=== PATIENT | female | born 1945 | race Caucasian/White ===

== ENCOUNTER 2017-05-26 10:33 | Emergency (ER) | payer MEDICARE ==
[2017-05-26] MEDS ORDERED: NS 0.9% 1000 ML* 1,000 ML IV ONE (10:51)
[2017-05-26 11:19] LABS: ABS Basophils 0.1 10^3/ul (0-0.2); ABS Eosinophils 0.1 10^3/ul (0-0.6); ABS Lymphocytes 1.5 10^3/ul (1.0-4.8); ABS Monocytes 0.7 10^3/ul (0-0.8); ABS Nucleated RBC 0 10^3/ul; Eosinophil % 0.6 % (0-6); Hematocrit 40 % (35-47); Hemoglobin 13.3 g/dl (12.0-16.0); Lymphocyte % 13.2 % (25-47); Mean Corpuscular HGB Conc 33 g/dl (31-36); Mean Corpuscular Hemoglobin 29 pg (27-31); Mean Corpuscular Volume 88 fL (80-97); Mean Platelet Volume 10 um3 (7.4-10.4); Nucleated Red Blood Cells % 0; Platelet Count 280 10^3/ul (150-450); Red Blood Count 4.61 10^6/ul (4.0-5.4); Red Cell Distribution Width 14 % (10.5-15); White Blood Count 11.3 10^3/ul (3.5-10.8)
--- NOTE | 2017-05-26 11:34 | RAD ---
Indication: Weakness. 2 views the chest demonstrate no mediastinal shift. Heart is of normal size and configuration. Lung barr are clear. When compared to previous exam of December 03, 2015 no significant change is noted. IMPRESSION: No active cardiopulmonary disease is noted.
[2017-05-26 11:39] LABS: EGFR Non-African American 81.2 (>60)
[2017-05-26 14:22] LABS: Urine Appearance Clear; Urine Blood Negative (Negative); Urine Color Straw; Urine Ketones Negative (Negative); Urine Protein Negative (Negative); Urine Specific Gravity 1.007 (1.010-1.030); Urine Urobilinogen Negative (Negative)
[2017-05-26 15:23] VITALS: BP 172/82
--- NOTE | 2017-05-26 17:37 | ED ---
Radha Benavides Nilda, scribed for Juan Shields MD on 05/26/17 at 1116 . HPI Diabetic - HPI Summary HPI Summary: This patient is a 72 year old F BIBA with a chief complaint of constant nausea and headache since this morning. The patient rates the pain 0/10 in severity. Symptoms aggravated by medication non-compliance and alleviated by nothing. Patient reports insomnia (weeks), but denies CP, SOB, and fever. PMHx includes IDDM (noncompliant with treatment regimen). Patient states she took insulin this morning but that she has not taken insulin for months. 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 Denies: Hx Anemia Cardiovascular History: Reports: Hx 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 14, Hx Hypertension - DOESN'T TAKE MEDS Denies: Hx Pacemaker/ICD, Other Cardiovascular Problems/Disorders - Open heart surgery in 1960s, FOR CONGENITAL HEART DISEASE GI History: Denies: Hx Jaundice History: Denies: Hx Renal Disease Sensory History: Reports: Hx Contacts or Glasses Denies: Hx Hearing Aid Opthamlomology History: Reports: Hx Contacts or Glasses Neurological History: Reports: Hx Headaches, Hx Migraine Denies: Other Neuro Impairments/Disorders Psychiatric History: Reports: Hx Anxiety, Hx Depression, Hx Panic Disorder Denies: Hx Attention Deficit Hyperactivity Disorder, Hx Eating Disorder, Hx Post Traumatic Stress Disorder, Hx Inpatient Treatment, Hx Community Mental Health Tx, Hx Schizophrenia, Hx Bipolar Disorder, Hx Suicide Attempt, Hx of Violent Episodes Against Others, Hx Substance Abuse, Other Psychiatric Issues/ Disorders - Cancer History Cancer Type, Location and Year: L breast cancer Hx Radiation Therapy: Yes - Surgical History Surgery Procedure, Year, and Place: OPEN HEART AT AGE 14 FOR CONGENTIAL HEART ( ONLY STERNAL CLOSURES ON CHEST XRAY - OKAY TO MRI SCAN PER DR. QUINTERO 09/24/2015 ) ;. BREAST CANCER SURGERY ; - Immunization History Date of Tetanus Vaccine: utd Date of Influenza Vaccine: never Infectious Disease History: No Infectious Disease History: Denies: Traveled Outside the [place] in Last 30 Days - Family History Known Family History: Positive: Other - Breast cancer - Social History Alcohol Use: None Substance Use Type: Reports: None Hx Tobacco Use: No Smoking Status (MU): Never Smoked Tobacco Have You Smoked in the Last Year: No Review of Systems Negative: Fever Negative: Chest Pain Negative: Shortness Of Breath Positive: Nausea Neurological: Other - insomnia Positive: Headache All Other Systems Reviewed And Are Negative: Yes Physical Exam - Summary Physical Exam Summary: VITAL SIGNS: Reviewed. GENERAL: Patient is a well-developed and nourished female with poor hygiene who is lying comfortable in the stretcher. Patient is not in any acute respiratory distress. No acute distress. HEAD AND FACE: No signs of trauma. No ecchymosis, hematomas or skull depressions. No sinus tenderness. EYES: PERRLA, EOMI x 2, No injected conjunctiva, no nystagmus. EARS: Hearing grossly intact. Ear canals and tympanic membranes are within normal limits. MOUTH: Oropharynx within normal limits. NECK: Supple, trachea is midline, no adenopathy, no JVD, no carotid bruit, no c- spine tenderness, neck with full ROM. CHEST: Symmetric, no tenderness at palpation LUNGS: Clear to auscultation bilaterally. No wheezing or crackles. CVS: Regular rate and rhythm, S1 and S2 present, no murmurs or gallops appreciated. ABDOMEN: Soft, non-tender. No signs of distention. No rebound no guarding, and no masses palpated. Bowel sounds are normal. EXTREMITIES: FROM in all major joints, no edema, no cyanosis or clubbing. NEURO: Alert and oriented x 3. No acute neurological deficits. Speech is normal and follows commands. SKIN: Dry and warm Triage Information Reviewed: Yes Vital Signs On Initial Exam: Initial Vitals Temp Pulse Resp BP Pulse Ox 97.7 F 86 20 188/92 98 05/26/17 10:42 05/26/17 10:42 05/26/17 10:42 05/26/17 10:42 05/26/17 10:42 Vital Signs Reviewed: Yes Diagnostics - Vital Signs Vital Signs Temp Pulse Resp BP Pulse Ox 05/26/17 10:42 97.7 F 86 20 188/92 98 - Laboratory Lab Results: Lab Results 05/26/17 05/26/17 05/26/17 Range/Units 11:09 11:09 11:09 WBC 11.3 H (3.5-10.8) 10^3/ul RBC 4.61 (4.0-5.4) 10^6/ul Hgb 13.3 (12.0-16.0) g/dl Hct 40 (35-47) % MCV 88 (80-97) fL MCH 29 (27-31) pg MCHC 33 (31-36) g/dl RDW 14 (10.5-15) % Plt Count 280 (150-450) 10^3/ul MPV 10 (7.4-10.4) um3 Neut % (Auto) 79.4 (38-83) % Lymph % (Auto) 13.2 L (25-47) % [place] % (Auto) 6.1 (0-7) % Eos % (Auto) 0.6 (0-6) % Baso % (Auto) 0.7 (0-2) % Absolute Neuts (auto) 9.0 H (1.5-7.7) 10^3/ul Absolute Lymphs (auto) 1.5 (1.0-4.8) 10^3/ul Absolute Monos (auto) 0.7 (0-0.8) 10^3/ul Absolute Eos (auto) 0.1 (0-0.6) 10^3/ul Absolute Basos (auto) 0.1 (0-0.2) 10^3/ul Absolute Nucleated RBC 0 10^3/ul Nucleated RBC % 0 Sodium 138 (133-145) mmol/L Potassium 3.6 (3.5-5.0) mmol/L Chloride 101 (101-111) mmol/L Carbon Dioxide 29 (22-32) mmol/L Anion Gap 8 (2-11) mmol/L BUN 11 (6-24) mg/dL Creatinine 0.71 (0.51-0.95) mg/dL Est GFR ( Amer) 104.4 (>60) Est GFR (Non-Af Amer) 81.2 (>60) BUN/Creatinine Ratio 15.5 (8-20) Glucose 296 H (70-100) mg/dL Lactic Acid (0.5-2.0) mmol/L Calcium 9.4 (8.6-10.3) mg/dL Magnesium 1.7 L (1.9-2.7) mg/dL Total Bilirubin 0.30 (0.2-1.0) mg/dL AST 9 L (13-39) U/L ALT 5 L (7-52) U/L Alkaline Phosphatase 101 (34-104) U/L Total Creatine Kinase 29 (10-223) U/L Troponin I 0.01 (<0.04) ng/mL C-Reactive Protein 8.74 H (< 5.00) mg/L B-Natriuretic Peptide 74 ( - 100) pg/mL Total Protein 7.0 (6.4-8.9) g/dL Albumin 3.8 (3.2-5.2) g/dL Globulin 3.2 (2-4) g/dL Albumin/Globulin Ratio 1.2 (1-3) TSH 1.77 (0.34-5.60) mcIU/mL Serum Alcohol < 10 (<10) mg/dL /16/ Range/Units 11:09 WBC (3.5-10.8) 10^3/ul RBC (4.0-5.4) 10^6/ul Hgb (12.0-16.0) g/dl Hct (35-47) % MCV (80-97) fL MCH (27-31) pg MCHC (31-36) g/dl RDW (10.5-15) % Plt Count (150-450) 10^3/ul MPV (7.4-10.4) um3 Neut % (Auto) (38-83) % Lymph % (Auto) (25-47) % [place] % (Auto) (0-7) % Eos % (Auto) (0-6) % Baso % (Auto) (0-2) % Absolute Neuts (auto) (1.5-7.7) 10^3/ul Absolute Lymphs (auto) (1.0-4.8) 10^3/ul Absolute Monos (auto) (0-0.8) 10^3/ul Absolute Eos (auto) (0-0.6) 10^3/ul Absolute Basos (auto) (0-0.2) 10^3/ul Absolute Nucleated RBC 10^3/ul Nucleated RBC % Sodium (133-145) mmol/L Potassium (3.5-5.0) mmol/L Chloride (101-111) mmol/L Carbon Dioxide (22-32) mmol/L Anion Gap (2-11) mmol/L BUN (6-24) mg/dL Creatinine (0.51-0.95) mg/dL Est GFR ( Amer) (>60) Est GFR (Non-Af Amer) (>60) BUN/Creatinine Ratio (8-20) Glucose (70-100) mg/dL Lactic Acid 1.8 (0.5-2.0) mmol/L Calcium (8.6-10.3) mg/dL Magnesium (1.9-2.7) mg/dL Total Bilirubin (0.2-1.0) mg/dL AST (13-39) U/L ALT (7-52) U/L Alkaline Phosphatase (34-104) U/L Total Creatine Kinase (10-223) U/L Troponin I (<0.04) ng/mL C-Reactive Protein (< 5.00) mg/L B-Natriuretic Peptide ( - 100) pg/mL Total Protein (6.4-8.9) g/dL Albumin (3.2-5.2) g/dL Globulin (2-4) g/dL Albumin/Globulin Ratio (1-3) TSH (0.34-5.60) mcIU/mL Serum Alcohol (<10) mg/dL Result Diagrams: 05/26/17 11:09 05/26/17 11:09 Lab Statement: Any lab studies that have been ordered have been reviewed, and results considered in the medical decision making process. - Radiology CXR Radiology Interpretation Completed By: Radiologist - CXR reveals no active cardiopulmonary disease is noted. Dr. Shields has reviewed this radiology report. - EKG 1100 Cardiac Rate: Other Rate EKG Rhythm: Sinus Rhythm - 89 bpm EKG Interpretation: no ST elevation EKG Comparison: No Significant Change - compared to 12/03/15 Re-Evaluation - Re-Evaluation First Eval Re-Evaluation Time: 12:55 Comment: Patient feels okay. Second Eval Re-Evaluation Time: 14:55 Comment: Reviewed labs with patient and plan to D/C. Patient is agreeable to D/ C. Diabetic Course/Dx - Course Assessment/Plan: This patient is a 72 year old F BIBA with a chief complaint of constant nausea and headache since this morning. The patient rates the pain 0/ 10 in severity. Symptoms aggravated by medication non-compliance and alleviated by nothing. Patient reports insomnia (weeks), but denies CP, SOB, and fever. PMHx includes IDDM (noncompliant with treatment regimen). Patient states she took insulin this morning but that she has not taken insulin for months. In the ED course an IV access was obtained. Patient was placed in a monitoring specialist. Patient was started with IV fluids. Labs without any significant abnormality except for WBC 11.3, glucose 296 consistent with her not adherence to medications. Troponin #1: 0.00. EKG shows a NSR w/o ST elevations. CXR impression: No acute pathology. After hydration she is feeling better and she will be discharged home with F/U of PMD. I discussed all the findings and test results with the patient. Patient was instructed to return to the emergency room immediately if any of the symptoms return or worsens. Plan of care was discussed with the patient and understands and agrees. All questions were answered at patient satisfaction. There were no further complaints or concerns. Lung exam before discharge: CTA B/L. Good air exchange. No wheezing or crackles heard. CVS: S1 and S2 present. No murmurs appreciated. Patient is alert and oriented x 3. Patient is hemodynamically stable. Patient will be discharged home with follow up PCP in the next 2-3 days - Diagnoses Differential Dx: Diabetic Ketoacidosis, Hyperglycemia, Hyperosmolar State, Hypoglycemia Provider Diagnoses: Weakness, Hyperglycemia, Uncontrolled diabetes mellitus Discharge - Discharge Plan Condition: Stable Disposition: HOME Prescriptions: Insulin ASPART (NF) [Novolog (NF)] 0 - 8 units SUBCUT TID AC #1 vial Insulin GLARGINE(*) [Lantus(*)] 45 units SUBCUT BEDTIME #1 vial Patient Education Materials: Weakness (ED), Diabetic Hyperglycemia (ED), Diabetes in the Older Adult (ED) Referrals: Ruby Trinh MD [Primary Care Provider] - 3 Days Additional Instructions: RETURN TO THE EMERGENCY DEPARTMENT FOR CHANGING OR WORSENING SYMPTOMS. The documentation as recorded by the Radha gu Nilda accurately reflects the service I personally performed and the decisions made by , Juan Shields MD.
== END 2017-05-26 15:21 | disposition home or self-care (01) ==
LOC: ED 10:33
DX: R53.1 Weakness (principal); E11.65 Type 2 diabetes mellitus with hyperglycemia; Z91.19 Patient's noncompliance with other medical treatment and regimen; Z85.3 Personal history of malignant neoplasm of breast
CPT/HCPCS: 36415; 71046; 80053; 80320; 81003; 82550; 83605; 83735; 83880; 84443; 84484; 85025; 86140; 93005; 96360; 99283; G0480

== ENCOUNTER 2018-12-25 12:04 | Inpatient (IN) | payer MEDICARE ==
[2018-12-25] MEDS ORDERED: Nitroglycerin TAB 0.4 MG* 0.4 MG TAB ONE (12:23)
[2018-12-25] MEDS ORDERED: Aspirin 81 mg CHEW TAB* 81 MG TAB.CHEW ONE (12:23)
[2018-12-25] MEDS ORDERED: Aspirin 81 mg CHEW TAB* 81 MG TAB.CHEW PO ONE (12:24)
[2018-12-25] MEDS ORDERED: Nitroglycerin TAB 0.4 MG* 0.4 MG TAB SL ONE (12:24)
--- NOTE | 2018-12-25 12:28 | ED ---
HPI Diabetic - HPI Summary HPI Summary: Pt is a 73 y/o F presenting to the ED brought in by EMS for a diabetic issue. EMS was called by the pts aide who found her on the floor with confusion and double vision. EMS states her blood sugar was out of range. The pt states she slid down to the floor yesterday and was unable to get up for 12 hours. She lives alone. She complains of chest pressure rated at 4/10 in severity. - History Of Current Complaint Chief Complaint: EDDiabeticProb Time Seen by Provider: 12/25/18 12:16 Hx Obtained From: Patient, EMS Onset/Duration: Gradual Onset, Lasting Hours, Still Present Timing: Hours Severity Initially: Moderate Severity Currently: Moderate Character: Confused Aggravating: Other - fall Alleviating: Nothing Associated Signs & Symptoms: Negative Related History: DM II - Allergies/Home Medications Allergies/Adverse Reactions: Allergies Allergy/AdvReac Type Severity Reaction Status Date / Time ciprofloxacin Allergy Rash And Verified 12/25/18 14:34 Itching Home Medications: Home Medications Amlodipine Besylate [Norvasc] 10 mg PO DAILY 12/25/18 [History Confirmed ] Insulin Glargine,Hum.rec.anlog [Basaglar Kwikpen] 40 unit SUBCUT DAILY 12/25/18 [History Confirmed 12/25/18] PMH/Surg Hx/FS Hx/Imm Hx Previously Healthy: Yes Endocrine/Hematology History: Reports: 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 Denies: Hx Anemia Cardiovascular History: Reports: Hx 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 14, Hx Hypertension - DOESN'T TAKE MEDS Denies: Hx Pacemaker/ICD, Other Cardiovascular Problems/Disorders - Open heart surgery in 1960s, FOR CONGENITAL HEART DISEASE GI History: Denies: Hx Jaundice History: Denies: Hx Renal Disease Sensory History: Reports: Hx Contacts or Glasses Denies: Hx Hearing Aid Opthamlomology History: Reports: Hx Contacts or Glasses Neurological History: Reports: Hx Headaches, Hx Migraine Denies: Other Neuro Impairments/Disorders Psychiatric History: Reports: Hx Anxiety, Hx Depression, Hx Panic Disorder Denies: Hx Attention Deficit Hyperactivity Disorder, Hx Eating Disorder, Hx Post Traumatic Stress Disorder, Hx Inpatient Treatment, Hx Community Mental Health Tx, Hx Schizophrenia, Hx Bipolar Disorder, Hx Suicide Attempt, Hx of Violent Episodes Against Others, Hx Substance Abuse, Other Psychiatric Issues/ Disorders - Cancer History Cancer Type, Location and Year: L breast cancer Hx Radiation Therapy: Yes - Surgical History Surgery Procedure, Year, and Place: OPEN HEART AT AGE 14 FOR CONGENTIAL HEART ( ONLY STERNAL CLOSURES ON CHEST XRAY - OKAY TO MRI SCAN PER DR. QUINTERO 09/24/2015 ) ;. BREAST CANCER SURGERY ; - Immunization History Date of Tetanus Vaccine: utd Date of Influenza Vaccine: never Infectious Disease History: No Infectious Disease History: Denies: Traveled Outside the [place] in Last 30 Days - Family History Known Family History: Positive: Other - Breast cancer - Social History Alcohol Use: None Hx Substance Use: No Substance Use Type: Reports: None Hx Tobacco Use: No Smoking Status (MU): Never Smoked Tobacco Have You Smoked in the Last Year: No Review of Systems Positive: Other - high blood sugar Positive: Diplopia Positive: Chest Pain Positive: Other - fall Neurological: Other - confusion All Other Systems Reviewed And Are Negative: Yes Physical Exam - Summary Physical Exam Summary: VITAL SIGNS: Reviewed. GENERAL: Patient is a well-developed and nourished female who is lying comfortable in the stretcher with poor hygiene and feces all over her. Patient is not in any acute respiratory distress. HEAD AND FACE: No signs of trauma. No ecchymosis, hematomas or skull depressions. No sinus tenderness. EYES: PERRLA, EOMI x 2, No injected conjunctiva, no nystagmus. EARS: Hearing grossly intact. Ear canals and tympanic membranes are within normal limits. MOUTH: Oral mucosa is dry. NECK: Supple, trachea is midline, no adenopathy, no JVD, no carotid bruit, no c- spine tenderness, neck with full ROM. CHEST: Symmetric, no tenderness at palpation. LUNGS: Clear to auscultation bilaterally. No wheezing or crackles. CVS: Regular rate and rhythm, S1 and S2 present, no murmurs or gallops appreciated. Decreased capillary refill of fingers. ABDOMEN: Soft, non-tender. No signs of distention. No rebound, no guarding, and no masses palpated. Bowel sounds are normal. EXTREMITIES: FROM in all major joints, no edema, no cyanosis or clubbing. NEURO: Alert and oriented x 3. She is not confused. No acute neurological deficits. Speech is normal and follows commands. SKIN: Dry and warm. Turgor of the skin is increased. Triage Information Reviewed: Yes Vital Signs On Initial Exam: Initial Vitals Temp Pulse Resp BP Pulse Ox 97.9 F 101 18 162/94 96 12/25/18 12:05 12/25/18 12:05 12/25/18 12:05 12/25/18 12:05 12/25/18 12:05 Vital Signs Reviewed: Yes Diagnostics - Vital Signs Vital Signs Temp Pulse Resp BP Pulse Ox 12/25/18 12:05 97.9 F 101 18 162/94 96 - Laboratory Result Diagrams: 12/25/18 12:18 12/25/18 12:18 Lab Statement: Any lab studies that have been ordered have been reviewed, and results considered in the medical decision making process. - Radiology CXR Radiology Interpretation Completed By: Radiologist Summary of Radiographic Findings: CARDIOMEGALY WITH NO DEFINITE ACTIVE CARDIOPULMONARY DISEASE. ED physician has reviewed this report. - EKG 1208 Cardiac Rate: Tachycardia - 100bpm EKG Rhythm: Sinus Tachycardia ST Segment: Non-Specific Ectopy: None Summary of EKG Findings: EKG at 1208 shows sinus tachycardia at 100bpm. There are ST depressions in lead I and v3-v5, and T-wave inversions in lead I and aVL. ED physician has reviewed and interpreted this report. Diabetic Course/Dx - Course Assessment/Plan: This patient is a 73-year-old female who presents to the emergency room via ambulance with a chief complaint of having confusion, double vision, and high blood sugar. She also reports she fell and could not get up from the floor since last night. Blood work without any significant abnormality except for WBCs of 26.8, absolute neutrophils of 23.6, sodium 132, chloride 92, anion gap is 13, BUN is 25, creatinine 1.81, glucose 644, lactic acid is 3, magnesium 1.5, alkaline phosphatase 117, and troponin 0.04. Urinalysis is negative for UTI. In the ED course the patient was given 2 L IV fluids , insulin for the hyperglycemia, magnesium IV. Patient also was given aspirin and nitroglycerin since the patient was having chest pain. The EKG shows ST depression signs of ischemia. At this time I discussed my physical examination and is with Dr. Dougherty who accepted the patient for admission. - Diagnoses Provider Diagnoses: Chest pain, Hyperglycemia - Physician Notifications Discussed Care Of Patient With: Isabel Dougherty Time Discussed With Above Provider: 15:00 Instructed by Provider To: Admit As Inpatient Discharge ED - Sign-Out/Discharge Documenting (check all that apply): Patient Departure - Discharge Plan Condition: Stable Disposition: ADMITTED TO [facility] - Billing Disposition and Condition Condition: STABLE Disposition: Admitted to [facility] - Attestation Statements Document Initiated by Scribe: Yes Documenting Scribe: Verena Soto Provider For Whom Sherrie is Documenting (Include Credential): Juan Shields MD. Scribe Attestation: Verena Benavides, scribed for Juan Shields MD. on 12/25/18 at 1853. Scribe Documentation Reviewed: Yes Provider Attestation: The documentation as recorded by the Verena gu accurately reflects the service I personally performed and the decisions made by , Juan Shields MD. Status of Scribe Document: Viewed Procedures - Sedation Patient Received Moderate/Deep Sedation with Procedure: No
[2018-12-25 12:34] LABS: Hematocrit 40 % (35-47); Hemoglobin 13.1 g/dL (12.0-16.0); Mean Corpuscular HGB Conc 33 g/dL (31-36); Mean Corpuscular Hemoglobin 29 pg (27-31); Mean Corpuscular Volume 88 fL (80-97); Mean Platelet Volume 9.1 fL (7.4-10.4); Platelet Count 286 10^3/uL (150-450); Red Blood Count 4.52 10^6 /uL (3.70-4.87); Red Cell Distribution Width 14 % (10-15); White Blood Count 26.8 10^3/uL (3.5-10.8)
[2018-12-25 12:46] LABS: ALT 10 U/L (7-52); AST 9 U/L (13-39); Albumin 3.8 g/dL (3.2-5.2); Albumin/Globulin Ratio 1.2 (1-3); Alkaline Phosphatase 117 U/L (34-104); Anion Gap 13 mmol/L (2-11); BUN/Creatinine Ratio 13.8 (8-20); Blood Urea Nitrogen 25 mg/dL (6-24); CO2 Carbon Dioxide 27 mmol/L (22-32); Calcium 8.7 mg/dL (8.6-10.3); Chloride 92 mmol/L (101-111); Creatine Kinase 39 U/L (10-223); EGFR African American 33.3 (>60); EGFR Non-African American 27.5 (>60); Globulin 3.1 g/dL (2-4); Magnesium 1.5 mg/dL (1.9-2.7); Potassium 3.7 mmol/L (3.5-5.0); Sodium 132 mmol/L (135-145); Total Protein 6.9 g/dL (6.4-8.9)
[2018-12-25 12:50] LABS: Glucose 644 mg/dL (70-100); Troponin I 0.04 ng/mL (<0.04)
[2018-12-25] MEDS: NS 0.9% 1000 ML** 2,000 ML IV ONE (12:53)
[2018-12-25 13:00] LABS: INR 0.97 (0.82-1.09)
--- OUTSIDE RECORDS SUMMARY | 2018-12-25 13:12 | XMS REPORT | Continuity of Care Document ---
:1945 External Reference #:[id number] Author Name Yaw Sweet Care Team Providers Name Role Phone Ruby Trinh MD - Internal Care Team Information Director Of Medical Review [phone] Medicine Problems Active Problems Provider Date Cerebellar ataxia Fernanda Michelle M.D. Onset: 10/23/2014 Sensory disturbance in limb Fernanda Michelle M.D. Onset: 10/23/2014 Electrocardiogram abnormal Fernanda Michelle M.D. Onset: 10/23/2014 Depressive disorder Allen Cary M.D. Onset: 10/23/2014 Hyperlipidemia Fernanda Michelle M.D. Onset: 10/23/2014 Carcinoma in situ of breast Fernanda Michelle M.D. Onset: 10/23/2014 Essential hypertension Fernanda Michelle M.D. Onset: 12/19/2014 Type II diabetes mellitus uncontrolled Ruby Trinh M.D. Onset: 11/11/2015 Mixed hyperlipidemia Juan Portillo M.D. Onset: 11/30/2016 Hiatal hernia Ruby Trinh M.D. Onset: 12/20/2016 Note: noted on esophogram Neoplasm of uncertain behavior of thyroid Ruby Trinh M.D. Onset: 2018 gland Screening mammography Ruby Trinh M.D. Onset: 09/11/2018 Social History Type Date Description Comments Sex Unknown ETOH Use Never used alcohol Tobacco Use Start: Unknown Patient has never smoked Recreational Drug Use Denies Drug Use Smoking Status Reviewed: 10/11/18 Patient has never smoked Exercise Type/Frequency Does not exercise Allergies, Adverse Reactions, Alerts Active Allergies Reaction Severity Comments Date carbacaine Passed Out 11/17/2011 Ciprofloxacin Urticaria Moderate 10/31/2014 Medications Active Medications SIG Qnty Indications Ordering Date Provider Amlodipine Besylate 1 by mouth every 90tabs I10 Ruby Trinh, 10/11/2018 day M.D. 10mg Tablets Atorvastatin Calcium once a day 90tabs E78.2 Ruby Trinh, 09/11/2018 M.D. 80mg Tablets Aspirin 81 daily 100tabs Ruby Trihn, 09/11/[address] Sera Rob inject 40 units 30units Ruby Trinh, 09/11/2018 under the skin M.D. 100Unit/ML Solution daily Pen-Inject Novolog Flexpen 2 u base & if BS 45ml Ruby Trinh, 12/22/2016 150- 200 give 4 M.D. 100Unit/ML Solution u, 201-249 give Pen-Inject 6 u, , if BS 250-300 give 8 u, if >300 -350 give 12 units , >350 :14 u, Transfer Shower Chair use as directed 1un Ruby Trinh, 05/17/2016 dx: g11.1 M.D. Lisinopril once a day 90tabs I10 Ruby Andersenan, 11/05/2015 40mg Tablets M.D. BD Pen Beasley for use with 200units Ruby Trinh, 10/20/2015 Short/Ultrafine/31G X lantus and M.D. 5/16" humalog pens 31G X 8 mm Misc daily Freestyle Lite Test check blood 100units E11.65 Rubystephanie Trinh, 12/22/2014 sugar 4 times M.D. Strips daily and as needed dx e11.65 Blood Pressure ck in in the 1units I10 Fernanda Michelle, 12/19/2014 Monitor Automatic morning and M.D. With Mediumcuff evening Kit Freestyle Insulinx check blood 100units E11.65 Ruby Trinh, 12/19/2014 Blood Glucose Test sugar 4 times M.D. Strips daily and as Strips needed dx e11.65 Freestyle Lite Blood check blood 1units E11.65 Ruby Trinh, 11/18/2014 Glucose Monitoring sugar 3-4 times M.D. System daily and as Device needed dx e11.65 Freestyle Lancets check blood 100units E11.65 Ruby Trinh, 11/14/2014 Misc sugar 3-4 times M.D. daily and as needed dx e11.65 Paxil 2 pills daily 60tabs Rubystephanie Trinh, 20mg Tablets M.D. Amitriptyline HCL 1 by mouth every 90tabs Rubystephanie Trinh, 50mg night at bedtime M.D. Tablets History Medications Amlodipine Besylate once a day 90tabs I10 Ruby Trinh, 10/01/2018 - M.D. 10/11/2018 5mg Tablets Basaglar Kwikpen inject 40 units 30units Rubystephanie Trinh, 08/27/2018 - under the skin M.D. 09/11/2018 100Unit/ML Solution daily Pen-Inject Immunizations CPT Code Status Date Vaccine Lot # [id number] Given 11/30/2016 Influenza Virus Vaccine, Quadrivalent, Split, [id number] Preservative Free [id number] Given 12/07/2015 Tdap - Tetanus/Diptheria/Acellular Pertussis [id number] Given 12/07/2015 Pneumococcal Conjugate Vaccine 13 Valent For [id number] Intramuscular Use [id number] Given 11/06/2014 Pneumonia Vaccine [id number] Refused 12/07/2015 Influenza Virus Vaccine, Quadrivalent, Split, Preservative Free Vital Signs Date Vital Result Comment 10/30/2018 1:09pm Heart Rate 75 /min BP Systolic Sitting 141 mmHg in L arm, 150/71 in R arm BP Diastolic Sitting 70 mmHg in L arm, 150/71 in R arm 10/23/2018 1:35pm Heart Rate 71 /min BP Systolic Sitting 170 mmHg Rue reg manual cuff BP Diastolic Sitting 82 mmHg Rue reg manual cuff BP Systolic Recheck 169 mmHg Lue reg cuff recheck after 5 min1 BP Diastolic Recheck 81 mmHg Lue reg cuff recheck after 5 min1 O2 % BldC Oximetry 96 % Results Test Date Facility Test Result H/L Range Note Urine Microalbumin 10/01/2018 [facility] Ur Microalbumin 24.6 mg /L Random [address] (mg/L) [place] [address] [phone] Urine Creatinine 94.44 mg/dL Urine Microalbumin/Creatinine 26.0 Normal <31 Lipid Profile 10/01/2018 [facility] Triglycerides 76 mg/dL 1 (Trig/Chol/HDL) [address] [place] [address] [phone] Cholesterol 182 mg/dL 2 HDL Cholesterol 64.5 mg/dL 3 LDL Cholesterol 102 mg/dL 4 Comp Metabolic 10/01/2018 [facility] Sodium 142 mmol/L Normal 135-[address] [place] [address] [phone] Potassium 4.3 mmol/L Normal 3.5-5.0 Chloride 103 mmol/L Normal 101-111 Co2 Carbon Dioxide 29 mmol/L Normal 22-32 Anion Gap 10 mmol/L Normal 2-11 Glucose 89 mg/dL Normal 70-100 Blood Urea Nitrogen 18 mg/dL Normal 6-24 Creatinine 0.83 mg/dL Normal 0.51-0.95 BUN/Creatinine Ratio 21.7 High 8-20 Calcium 9.3 mg/dL Normal 8.6-10.3 Total Protein 7.5 g/dL Normal 6.4-8.9 Albumin 4.1 g/dL Normal 3.2-5.2 Globulin 3.4 g/dL Normal 2-4 Albumin/Globulin Ratio 1.2 Normal 1-3 Total Bilirubin 0.40 mg/dL Normal 0.2-1.0 Alkaline Phosphatase 122 U/L High 34-104 Alt 16 U/L Normal 7-52 Ast 13 U/L Normal 13-39 Egfr Non- 67.6 >60 Egfr 81.8 >60 5 CBC Auto 10/01/2018 [facility] White Blood 12.0 10^3/uL High 3.5-10.[address] [place] [address] [phone] Red Blood Count 4.53 10^6/uL Normal 3.70-4.87 Hemoglobin 13.3 g/dL Normal 12.0-16.0 Hematocrit 40 % Normal 35-47 Mean Corpuscular Volume 89 fL Normal 80-97 Mean Corpuscular Hemoglobin 29 pg Normal 27-31 Mean Corpuscular HGB Conc 33 g/dL Normal 31-36 Red Cell Distribution Width 13 % Normal 10-15 Platelet Count 359 10^3/uL Normal 150-450 Mean Platelet Volume 8.4 fL Normal 7.4-10.4 Abs Neutrophils 8.8 10^3/uL High 1.5-7.7 Abs Lymphocytes 2.2 10^3/uL Normal 1.0-4.8 Abs Monocytes 0.7 10^3/uL Normal 0-0.8 Abs Eosinophils 0.2 10^3/uL Normal 0-0.6 Abs Basophils 0.1 10^3/uL Normal 0-0.2 Abs Nucleated RBC 0.0 10^3/uL Granulocyte % 73.4 % Lymphocyte % 18.4 % Monocyte % 5.7 % Eosinophil % 1.9 % Basophil % 0.6 % Nucleated Red Blood Cells % 0.2 Laboratory test finding 09/11/2018 [facility] Hemoglobin A1c 8.7 High 5 -7 1 Desirable: <150 Borderline High: 150-199 High: 200-499 Very High: >500 2 Desirable: <200 Borderline High: 200-239 High: >239 3 Low: <40 Desirable: 40-60 High: >60 4 Desirable: <100 Near Optimal: 100-129 Borderline High: 130-159 High: 160-189 Very High: >189 5 Because ethnic data is not always readily available, this report includes an eGFR for both -Americans and non- Americans. The National Kidney Disease Education Program (NKDEP) does not endorse the use of the MDRD equation for patients that are not between the ages of 18 and 70, are , have extremes of body size, muscle mass, or nutritional status, or are non- or non-. According to the National Kidney Foundation, irrespective of diagnosis, the stage of the disease is based on the level of kidney function: Stage Description GFR(mL/min/1.73 m(2)) 1 Kidney damage with normal or decreased GFR 90 2 Kidney damage with mild decrease in GFR 60-89 3 Moderate decrease in GFR 30-59 4 Severe decrease in GFR 15-29 5 Kidney failure <15 (or dialysis) Procedures Date Code Description Status 04/19/2016 168974389 Diabetic Retinal Eye Exam Completed 12/01/2015 [id number] Mammogram Completed 11/27/2014 [id number] Mammogram Completed Medical Devices Description No Information Available Encounters Type Date Location Provider Dx Diagnosis Office Visit 10/11/2018 Forrest Trinh, I10 Essential ( primary) 1:00p Medicine - Jannette Beckman hypertension Z85.3 Personal history of malignant neoplasm of breast Office Visit 10/01/2018 1:20p [facility] Oren Beltran Trinh, I1Lev Essential (primary) Medicine - Elenaob MChoco hypertension E11.65 Type 2 diabetes mellitus with hyperglycemia Office Visit 09/11/2018 1:00p [facility] Internal Ruby E11.65 Type 2 diabetes Medicine - Karuna Trinh mellitus with Ccmob hyperglycemia I10 Essential (primary) hypertension E78.2 Mixed hyperlipidemia Z01.810 Encounter for preprocedural cardiovascular examination Z91.14 Patient's other noncompliance with medication regimen Z12.31 Encntr screen mammogram for malignant neoplasm of breast Assessments Date Code Description Provider 10/30/2018 I10 Essential (primary) hypertension Nurse Visit A 10/23/2018 I10 Essential (primary) hypertension Nurse Visit A 10/11/2018 I10 Essential (primary) hypertension Ruby Trinh M.D. 10/11/2018 Z85.3 Personal history of malignant neoplasm of Ruby Trinh M.D. breast 10/01/2018 I10 Essential (primary) hypertension Ruby Trinh M.D. 10/01/2018 E11.65 Type 2 diabetes mellitus with hyperglycemia Ruby Trinh M.D. 09/11/2018 E11.65 Type 2 diabetes mellitus with hyperglycemia Ruby Trinh M.D. 09/11/2018 I10 Essential (primary) hypertension Ruby Trinh M.D. 09/11/2018 E78.2 Mixed hyperlipidemia Ruby Trinh M.D. 09/11/2018 Z01.810 Encounter for preprocedural cardiovascular Ruby Trinh M.D. examination 09/11/2018 Z91.14 Patient's other noncompliance with medication Ruby Trinh M.D. regimen 09/11/2018 Z12.31 Encounter for screening mammogram for Ruby Trinh M.D. malignant neoplasm of Plan of Treatment 10/11/2018 - Ruby Trinh M.D.I10 Essential (primary) hypertensionNew Medication:Amlodipine Besylate 10 mg - 1 by mouth every dayComments:please call Dr. Santos's office we discussed increasing the amlodipine to 10 mg daily that I have sent for youFollow up:10 days with a ndqpfX77.3 Personal history of malignant neoplasm of breastNew Xrays:[facility] Mammo Bilateral, Ordered: Functional Status Description No Information Available Mental Status Description No Information Available Referrals Description No Information Available
[2018-12-25 13:17] LABS: Acetaminophen < 15 mcg/mL; Alcohol < 10 mg/dL (<10); Salicylate < 2.50 mg/dL (<30)
[2018-12-25 13:29] LABS: TSH (Thyroid Stimulating Horm) 0.76 mcIU/mL (0.34-5.60)
[2018-12-25 14:09] LABS: ABS Basophils 0.1 10^3/ul (0-0.2); ABS Lymphocytes 1.4 10^3/ul (1.0-4.8); ABS Monocytes 1.6 10^3/ul (0-0.8); ABS Neutrophils 23.6 10^3/ul (1.5-7.7); Eosinophil % 0.1 %; Lymphocyte % 5.4 %
[2018-12-25 14:59] LABS: Urine Appearance Cloudy; Urine Bacteria Absent (Absent); Urine Benzodiazepine Screen None Detected (None Detect); Urine Bilirubin Negative (Negative); Urine Blood 1+ (Negative); Urine Color Yellow; Urine Glucose 3+(>=500 mg/dL) (Negative); Urine Ketones Negative (Negative); Urine Nitrite Negative (Negative); Urine Opiates Screen None Detected (None Detect); Urine Protein Negative (Negative); Urine Red Blood Cell Trace(0-2/hpf) (Absent); Urine Specific Gravity 1.024 (1.010-1.030); Urine Squamous Epithelial Cell Present (Absent); Urine Urobilinogen Negative (Negative); Urine White Blood Cell Trace(0-5/hpf) (Absent)
[2018-12-25] MEDS ORDERED: Magnesium Sulfate IV* 3 GM in NS 0.9% 100 ML* 100 ML IVPB ONE (15:43)
[2018-12-25 16:07] LABS: Troponin I 0.04 ng/mL (<0.04)
[2018-12-25] MEDS ORDERED: Insulin REGULAR(*) 1 UNITS UNIT IV PUSH ONE (16:07)
[2018-12-25] MEDS ORDERED: Acetaminophen TAB* 325 MG PO PRN (16:25)
[2018-12-25] MEDS ORDERED: Dextrose 50% VIAL 50 ml IV PUSH PRN ×2 (16:41→16:49)
[2018-12-25] MEDS ORDERED: Insulin LISPRO* 1 UNITS UNIT SUBCUT ONE (16:41)
[2018-12-25] MEDS ORDERED: NS 0.9% 1000 ML** 1,000 ML IV ONE (16:49)
[2018-12-25] MEDS: Atorvastatin* 80 MG TAB PO SCH (18:06)
[2018-12-25 19:37] LABS: Troponin I 0.04 ng/mL (<0.04)
--- NOTE | 2018-12-25 19:38 | HP ---
CC: Dr. Ruby Trinh * HISTORY AND PHYSICAL: DATE OF ADMISSION: 12/25/18 PROVIDER: Blaire Padilla NP. ATTENDING PHYSICIAN WHILE IN THE HOSPITAL: Dr. Isabel Dougherty * (dictated by Blaire Padilla NP). CHIEF COMPLAINT: 1. Weakness. 2. Hyperglycemia. HISTORY OF PRESENT ILLNESS: Ms. Ge is a 73-year-old female with a past medical history significant for hypertension, history of breast cancer status post lumpectomy, depression, history of cardiac surgery at the age of 14 for general heart abnormality, and diabetes, who presented to the emergency room with the complaints of weakness. The patient is a poor historian. The patient does report that yesterday she slid off her toilet at approximately 2 p.m. At that time, she had 1 episode of nausea and vomiting as well as diarrhea. She reports that after she slid off her toilet, she landed on the floor. She was unable to get up for approximately 12 hours. She does report that eventually she managed to make her way to her bed and slept in her bed during the night. She reports that at approximately 11:30 this morning, her aide came to see her and she was still in bed. Her aide called her supervisor finishing who recommended calling 911 and transporting the patient to the emergency room. The patient initially reported that she last took her meds on Monday, but then when questioned again, she reports that she has not taken any insulin in 4 to 5 days due to the fact, "I forget to take my insulin." She reports that she does not check her blood sugar regularly and does not have finger stick supplies at home. The patient also reports that this morning at approximately 8 a.m. when she woke, she had some midsternal chest pain that was a dull ache. She denied any radiation, any associated diaphoresis. She did report some nausea. She reports of chest pain lasting until about 1400 but has subsided. While in the emergency room, the patient had routine lab work drawn. She was found to be hyperglycemic with a blood sugar of 644 on arrival. She was also found to have an elevated lactic acid of 3.0 and elevated troponin of 0.04. She was found to have magnesium of 1.5 and elevated BUN and creatinine. Due to these findings, Hospital Medicine was asked to see and evaluate her for admission. PAST MEDICAL HISTORY: Significant for; 1. Hypertension. 2. History of breast cancer- s/p lumpectomy and radiation. 3. Depression. 4. History of cardiac surgery due to congenital heart abnormality at the age of 14. 5. Diabetes, insulin dependent. PAST SURGICAL HISTORY: History of cardiac surgery at the age of 14, wisdom teeth, and breast lumpectomy. HOME MEDICATIONS: Include; 1. Amlodipine 10 mg p.o. daily. 2. Atorvastatin 80 mg p.o. daily. 3. Aspirin 81 mg p.o. daily. 4. Basaglar 40 units subcu daily.- reports has not taken in 4-5 days. 5. NovoLog sliding scale.AC- does not take regularly 6. Lisinopril 40 mg p.o. daily. 7. Paxil 40 mg p.o. daily. 8. Amitriptyline 50 mg p.o. daily. ALLERGIES: CIPRO. FAMILY HISTORY: Father with a history of stroke. No reported history of diabetes or cancer within the family. SOCIAL HISTORY: Denies any tobacco, alcohol, or illicit drug use. She lives alone, and she does not walk with a walker when inside her house. She does walk with a walker if she has to go outside of her house. She does report she has an aide twice weekly that helps her with getting groceries. Surrogate decision maker is none. She is a full code. REVIEW OF SYSTEMS: The patient does report chills. Denies any fever or unintended weight loss. She does report chest pain that is now subsided that was midsternal dull ache, lasted from 8 a.m. to 2 p.m. Denies any edema. Denies any cough, hemoptysis, or shortness of breath. She does report some associated nausea and vomiting, 1 episode of diarrhea. Denies any abdominal pain. Denies any gross hematuria, dysuria, focal weakness, or sensory loss. Denies any visual complaints, dysphagia, arthralgias, myalgias, rashes, lesions , open sores, psychosis, or anxiety. Denies c-spine, t-spine or l-spine tenderness. PHYSICAL EXAMINATION GENERAL: At this time, Ms. Ge is a 73-year-old female. She is alert and oriented, resting on the stretcher in the emergency room. VITAL SIGNS: Temperature 98.6, heart rate 99, respirations are 15, O2 saturation 97%, blood pressure is 148/74. HEENT: Head is atraumatic, normocephalic. Eyes: EOMs are intact. Sclerae anicteric and not pale. Oral mucosa is dry. NECK: Supple. LUNGS: Clear to auscultation bilaterally. No wheezes, rales, or rhonchi. CARDIAC: S1, S2. Regular rate and rhythm. No murmurs, rubs, or gallops. ABDOMEN: Soft and nontender. Bowel sounds are present x4. EXTREMITIES: She is able to move all 4 extremities. There is no clubbing or cyanosis. NEUROLOGIC: She is awake, alert, and oriented x3. Speech is clear. Thought process is intact. There are no gross focal deficits. DIAGNOSTIC STUDIES/LAB DATA: WBCs are 26.8, RBCs 4.52, hemoglobin 13.1, hematocrit 40, platelet count 286. INR is 0.97. ABG, pH was 7.46, pCO2 was 37 , pO2 was 73, oxygen was 96.3. Sodium 132, potassium 3.7, chloride 92, carbon dioxide was 27, anion gap of 13, BUN was 25, creatinine 1.81. Initial glucose was 644, repeat was 508. Lactic acid was 3, repeat was 2.6. Calcium 8.7, magnesium 1.5. AST 9, ALT 10, alkaline phosphatase was 117. Ammonia was 30, CK was 39. Troponin 0.04 x2. TSH was 0.76. Urine was within normal limits with the exception blood was 1+ and squamous epithelial cells were present, glucose was 3+. Salicylates, acetaminophen, and alcohol were all negative. Urine toxicology was within normal limits. She had a chest x-ray, radiologist's impression: Cardiomegaly with no definite active cardiopulmonary disease. She had an electrocardiogram, which showed sinus rhythm at a rate of 100. She does have some minor ST depressions in 1, aVL, V2, V3, V4, and V5. ASSESSMENT AND PLAN: Ms. Ge is a 73-year-old female with a past medical history significant for insulin-dependent diabetes, hypertension, history of breast cancer, depression, history of congenital heart abnormality, who presented to the emergency room with complaint of weakness and found to have hyperglycemia. She will be admitted to inpatient for: 1. Hyperglycemia. Blood sugar is currently 508. The patient does report she has not taken her insulin in 4 to 5 days. I will decrease her Basaglar 20 units subcu daily as the patient is non-complaint with home insulin. We will put her on Accu- Cheks q.2 hours. I will give her 15 units of lispro now and sliding scale insulin AC. I will order a hemoglobin A1c. She has received 2 liters of normal saline in the ER, I will give her another liter of normal saline as the patient does appear to be dehydrated. 2. Elevated troponin. I suspect her elevated troponin is related to demand ischemia. She does have some ST depressions noted on her EKG in lead I, aVL, V2 , V3, and V4. The patient reports that she had chest pain this morning that is currently resolved. At this time, I will repeat an EKG, Will get a transthoracic echocardiogram. We will continue her on atorvastatin 80 mg p.o. daily, aspirin 81 mg p.o. daily. Can consider adding a beta-keenan and consider consult to Cardiology if her troponin continues to elevate and has further EKG changes. We will also monitor her on telemetry and repeat an EKG in the a.m. Could consider nuclear stress test once hyperglycemia is stabilized. 3. Leukocytosis. The patient does have a white count of 26,000, unclear etiology at this time. She does meet SIRS criteria with tachycardia and elevated WBC's but does not clear source at this time. This likely could be related to stress reaction of lying on the floor or underlying infection of unknown origin. Will add on CRP. Blood culture pending. We will monitor her closely for signs of infection. At this time, she is currently afebrile with no source of infection. Urine is within normal limits. Chest x-ray is also within normal limits. The patient denies any cough or congestion, any abdominal pain, back pain or open sores. If her white count continues to trend upwards, consider bone marrow etiology. 4. Lactic acidosis. I suspect her lactic acidosis is related to her hyperglycemia as the patient does not have a clear source of underlying infection at this time. She is afebrile with no source of infection. We will continue IV fluids and repeat a lactic acid in 4 hours. 5. Acute kidney injury. I suspect this is related to dehydration due to hyperglycemia. She did receive 2 L of normal saline in the emergency room. I will give her another liter of normal saline and continue IV fluids overnight. We will repeat a BMP in the a.m. We will avoid nephrotoxic medications. I will hold her lisinopril as this is nephrotoxic in light of her being dehydrated. 6. Hypertension. I will continue her amlodipine. I am going to hold her lisinopril as she does have an elevated BUN and creatinine. 7. Hyperlipidemia. She should continue on atorvastatin 80 mg p.o. daily. 8. FEN: She can have a heart healthy decaf okay diet. 9. Code status: She is a full code. 10. DVT prophylaxis: I will place her on heparin subcu. 11. Disposition: The patient will be placed inpatient on . I have discussed this with my attending Dr. Isabel Dougherty; she is in agreement with my plan. BLAIRE PADILLA, NELSON [id number]/[facility] #: [id number] KENNEDY
[2018-12-25 20:15] LABS: Calcium 8.3 mg/dL (8.6-10.3); Potassium 3.1 mmol/L (3.5-5.0)
[2018-12-25 20:21] LABS: BUN/Creatinine Ratio 15.9 (8-20); C Reactive Protein 143.61 mg/L (<8.01); EGFR African American 47.9 (>60); EGFR Non-African American 39.6 (>60)
[2018-12-25] MEDS ORDERED: Insulin GLARGINE(*) 1 UNITS UNIT SUBCUT SCH (21:00)
[2018-12-25] MEDS ORDERED: Insulin LISPRO* 1 UNITS UNIT SUBCUT SCH (21:00)
[2018-12-25] MEDS ORDERED: KCL 20 MEQ/100 ML IVPREMIX* 20 MEQ/100 ML BAG IV ONE (21:30)
[2018-12-25] MEDS ORDERED: Potassium Chlor TAB* 20 MEQ TAB.ER PO ONE (21:30)
[2018-12-25] MEDS: Metoprolol Tartrate TAB* 25 MG PO SCH (21:53)
[2018-12-25] MEDS: cefTRIAXone(*) 1 GM in NS 0.9% 50 ML* 50 ML IVPB SCH (22:49)
[2018-12-25] MEDS: Heparin VIAL(*) 5000 UNITS/ML VIAL (FIVE THOUSAND) SUBCUT SCH (22:52)
[2018-12-26] MEDS: Heparin VIAL(*) 5000 UNITS/ML VIAL (FIVE THOUSAND) SUBCUT SCH ×3 (05:40→21:35)
[2018-12-26 06:15] LABS: ABS Eosinophils 0.2 10^3/ul (0-0.6); ABS Lymphocytes 3.2 10^3/ul (1.0-4.8); ABS Monocytes 0.9 10^3/ul (0-0.8); ABS Neutrophils 14.8 10^3/ul (1.5-7.7); Eosinophil % 0.9 %; Hematocrit 32 % (35-47); Hemoglobin 10.8 g/dL (12.0-16.0); Lymphocyte % 16.6 %; Mean Corpuscular HGB Conc 33 g/dL (31-36); Mean Corpuscular Hemoglobin 29 pg (27-31); Mean Corpuscular Volume 87 fL (80-97); Mean Platelet Volume 8.8 fL (7.4-10.4); Platelet Count 248 10^3/uL (150-450); Red Cell Distribution Width 14 % (10-15)
[2018-12-26 06:37] LABS: Anion Gap 6 mmol/L (2-11); BUN/Creatinine Ratio 14.7 (8-20); Blood Urea Nitrogen 15 mg/dL (6-24); CO2 Carbon Dioxide 24 mmol/L (22-32); Calcium 7.9 mg/dL (8.6-10.3); Chloride 109 mmol/L (101-111); Cholesterol 134 mg/dL; EGFR African American 64.5 (>60); EGFR Non-African American 53.3 (>60); Glucose 199 mg/dL (70-100); HDL Cholesterol 46.8 mg/dL; LDL Cholesterol 52 mg/dL; Magnesium 2.2 mg/dL (1.9-2.7); Potassium 3.9 mmol/L (3.5-5.0); Sodium 139 mmol/L (135-145); Triglycerides 177 mg/dL
[2018-12-26 06:42] LABS: Troponin I 0.06 ng/mL (<0.04)
[2018-12-26] MEDS: NS 0.9% 1000 ML** 1,000 ML IV SCH ×2 (07:38→19:31)
[2018-12-26] MEDS: Insulin LISPRO* 1 UNITS UNIT SUBCUT SCH ×3 (08:55→17:36)
[2018-12-26] MEDS: Metoprolol Tartrate TAB* 25 MG PO SCH ×2 (08:56→20:38)
[2018-12-26] MEDS: Aspirin EC TAB* 81 MG TAB.EC PO SCH (08:57)
[2018-12-26] MEDS: amLODIPine TAB* 5 MG PO SCH (08:57)
[2018-12-26] MEDS: PARoxetine HCL TAB* 40 MG PO SCH (08:57)
[2018-12-26] MEDS ORDERED: Influenza VAC *QUAD* 2019-20* 0.5 ML SYRINGE IM ONE (09:00)
--- NOTE | 2018-12-26 14:58 | CONSULT ---
Consult Consult: Consult Reason: For Medical Decision Making Capacity S: Psychiatry is asked to evaluate this 73 year old female for medical decision making capacity. She lives alone and has a history of hoarding disorder and deplorable living conditions. She presented to the hospital today following not taking her insulin and falling. The patient reported not being able to remember to take her insulin sometimes because she gets tired and can not find the glucose finger stick. The patient described being in the hospital for falling down. She did not have know the indications or names of her medications. She is in agreement with going to a facility with nursing assistance. Past Psychiatric history: Hoarding Disorder O: 73 year old female appears older than stated age , disheveled and poor grooming. Euthymic affect. Linear and goal directed thoughts. No delusions or preoccupations. Denied suicidal ideation, intent or plan. Denied homicidal ideation intent or plan. No perceptual disturbances. Insight and judgment poor. She is aware of the name of her current location, month, day and year. She knows the name of the current president. A/P: Capacity: DX: Hoarding Disorder This patient lacks the capacity to make the decision to refuse transfer to a a nursing care facility. At this time this patient lacks the capacity to rationally make her own medical decisions given the following reasons: 1) The patient was able to communicate a choice. 2) The patient is unable to understand the meaning of the information communicated to her about her illness and to appreciate her medical condition as well as the outcome and the consequences of accepting or refusing various treatment options. 3) The patient was unable to engage in a rational process of considering alternative treatment options. The consulting provider was contacted and informed of the following recommendations, and is in agreement with the plan. Thank you for the consult. Patient informed of follow up care resources and that if he becomes suicidal to call 911. She was also notified 24 hour availability of the ER. As capacity is subject to change at any time, feel free to consult Psychiatry again in the event of any changes. Catracho Naylor M.D. #[id number]
--- NOTE | 2018-12-26 16:31 | PN ---
Subjective Date of Service: 12/26/18 Interval History: Patient seen and examined. States she was feeling very weak when she arrived, but does feel improved now. Discussed her blood glucose and insulin at length, however, she does not appear to grasp the gravity of not checking blood sugars and ramifications of not taking insulin. She states she forgot her "pokey thingy ", I assume this to mean her lancet for glucometer. When questioned if she checks her sugar when she can locate it, she says she can't remember. She otherwise denies pain, no SOB, no fever or chills, no urinary complaints, no n/v /d. Described burning after eating and felt like her food "didn't go down". No other complaints. Objective Active Medications: Acetaminophen (Tylenol Tab*) 650 mg PO Q4H PRN PRN Reason: MILD PAIN or TEMP > 100.4 Amlodipine Besylate (Norvasc Tab*) 10 mg PO DAILY [facility] Last Admin: 12/26/18 08:57 Dose: 10 mg Aspirin (Aspirin Ec Tab*) 81 mg PO DAILY [facility] Last Admin: 12/26/18 08:57 Dose: 81 mg Atorvastatin Calcium (Lipitor*) 80 mg PO 1700 [facility] Last Admin: 12/25/18 18:06 Dose: 80 mg Dextrose (Dextrose 50% Vial 50 Ml*) 25 ml IV PUSH .FOR FS < 60 - SS PRN PRN Reason: FS < 60 Heparin Sodium (Porcine) (Heparin Vial(*)) 5,000 units SUBCUT Q8HR [facility] Last Admin: 12/26/18 12:10 Dose: 5,000 units Sodium Chloride (Ns 0.9% 1000 Ml) 1,000 mls @ 100 mls/hr IV PER RATE [facility] Last Admin: 12/26/18 07:38 Dose: 100 mls/hr Ceftriaxone Sodium 1 gm/ (Sodium Chloride) 50 mls @ 100 mls/hr IVPB Q24H [facility] Last Admin: 12/25/18 22:49 Dose: 100 mls/hr Insulin Glargine (Lantus(*)) 20 units SUBCUT BEDTIME [facility] Insulin Human Lispro (Humalog*) 0 units SUBCUT AC [facility]; Protocol Last Admin: 12/26/18 12:11 Dose: 8 units Metoprolol Tartrate (Lopressor Tab*) 12.5 mg PO Q12HR [facility] Last Admin: 12/26/18 08:56 Dose: 12.5 mg Paroxetine HCl (Paxil Tab*) 40 mg PO DAILY [facility] Last Admin: 12/26/18 08:57 Dose: 40 mg Vital Signs - 8 hr 12/26/18 12/26/18 11:15 15:15 Temperature 97.7 F 98.2 F Pulse Rate 90 76 Respiratory 20 16 Rate Blood Pressure 163/68 146/64 (mmHg) O2 Sat by Pulse 95 94 Oximetry Oxygen Devices in Use Now: None Appearance: alert, ill-appearing Eyes: PERRLA Ears/Nose/Mouth/Throat: Mucous Membranes Moist Neck: NL Appearance and Movements; NL JVP, Trachea Midline Respiratory: Symmetrical Chest Expansion and Respiratory Effort, Clear to Auscultation Cardiovascular: NL Sounds; No Murmurs; No JVD, RRR Abdominal: NL Sounds; No Tenderness; No Distention Extremities: No Clubbing, Cyanosis Skin: No Rash or Ulcers Neurological: Alert and Oriented x 3 Nutrition: Taking PO's Result Diagrams: 12/26/18 05:55 12/26/18 05:55 Microbiology and Other Data: Microbiology 12/25/18 13:53 Urine Culture - Final Urine 12/25/18 12:42 Aerobic Blood Culture - Preliminary Blood Venous No Growth Day 1 Anaerobic Blood Culture - Preliminary No Growth Day 1 12/25/18 12:49 Aerobic Blood Culture - Preliminary Blood Venous No Growth Day 1 Anaerobic Blood Culture - Preliminary No Growth Day 1 Diagnostic Imaging: Patient Name: ROSA AGLINDO Medical Record#: [id number] Ordering Physician: Blaire Padilla NP Acct.#: [id number] : 1945 Age: 73 Sex: F Location: [address] [place] [address]/[employer] Exam Date: 12/25/182038 ADM Status: ADM IN Order Information: CT CHEST/ABD/PEL W/O Accession Number: [id number] CPT: 20575 PROCEDURE INFORMATION: Exam: CT Chest Without Contrast Exam date and time: 12/25/2018 9:29 PM Clinical history: 73 years old, female; Fever; Additional info: Low grade fever , leukocytosis, elevated crp TECHNIQUE: Imaging protocol: Computed tomography of the chest without contrast. Radiation optimization: All CT scans at this facility use at least one of these dose optimization techniques: automated exposure control; mA and/or kV adjustment per patient size (includes targeted exams where dose is matched to clinical indication); or iterative reconstruction. COMPARISON: No relevant prior studies available. FINDINGS: Thyroid: No thyroid nodules. Lungs: Mild bibasilar atelectasis. No pulmonary nodules, masses, or consolidations. No bronchiectasis, peribronchial thickening, or luminal defects. Pleural space: Normal. No pneumothorax. No pleural effusion. Heart: There is mild atherosclerotic calcification of the coronary arteries. Aorta: The aorta demonstrates mild atherosclerotic calcification. 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 Lymph nodes: Normal. No enlarged lymph nodes. Bones/joints: No acute fractures. No suspicious bone lesions. Soft tissues: Left breast lumpectomy. No nodules or masses. IMPRESSION: No CT findings to correlate with patient's symptomatology. COMMENT: See concurrently obtained abdomen and pelvis CT for further details. Assess/Plan/Problems-Billing Assessment: This is a 73 year old female with history of IDDM that presented to the ED with EMS after being found on the floor by a visiting aid, noted to be hyperglycemic with lactic acidosis and dehydrated. - Patient Problems (1) Hyperglycemia Code(s): R73.9 - HYPERGLYCEMIA, UNSPECIFIED SNOMED Code(s): 89655160 Comment: - 2/2 non-compliance with insulin - Continue lantus with increase to 20 units at night and lispro SS with accuchecks ACHS - CC diet - A1C = 11 indicating more than a few days off insulin as patient was reporting - continue tight glycemic control (2) Lactic acidosis due to diabetes mellitus Code(s): E11.10 - TYPE 2 DIABETES MELLITUS WITH KETOACIDOSIS WITHOUT COMA SNOMED Code(s): 863091026 Comment: - In presence of hyperglycemia - Trending down with aggressive fluid management and glycemic control - No obvious source of infection (3) Impaired decision making Code(s): Z78.9 - OTHER SPECIFIED HEALTH STATUS SNOMED Code(s): 193221488 Comment: - Per social work, patient is in poor living conditions; hoarding, animal and human feces infested home and APS is supposed to be involved - Psychiatry consulted for capacity, as patient will likely need SNF placement (4) Weakness Code(s): R53.1 - WEAKNESS SNOMED Code(s): 74260920 Comment: - Multifactorial, 2/2 hyperglycemia and poor living conditions - PT/OT consults - SW consult (5) Hypertension Code(s): I10 - ESSENTIAL (PRIMARY) HYPERTENSION SNOMED Code(s): 33020855 Comment: - Continue norvasc and metoprolol (6) Leukocytosis Code(s): D72.829 - ELEVATED WHITE BLOOD CELL COUNT, UNSPECIFIED SNOMED Code(s) : 023652924 Comment: - No clear source - afebrile, no pain - CT abd/pelvis negative, CXR negative, urine negative, blood cultures negative ; had one dose ceftriaxone in ED - Continue to monitor labs, WBC count is trending down (7) Demand ischemia Code(s): I24.8 - OTHER FORMS OF ACUTE ISCHEMIC HEART DISEASE SNOMED Code(s): 968910035 Comment: - Mildly elevated tropin presence of uncontrolled hyperglycemia and lactic acidosis and prolonged time on the floor - No anginal equivalents - EKG with some flattening of T waves but no change from yesterday to today - May represent underlying CAD given uncontrolled diabetes, but patient has no chest pain - May consider stress test this admission if any further changes on tele or if patient is symptomatic once patient is stabilized - Continue BB, norvasc, ASA and statin, unclear if patient was compliant with any of her medications while home (8) Full code status Code(s): Z78.9 - OTHER SPECIFIED HEALTH STATUS SNOMED Code(s): 517115961 (9) DVT prophylaxis Code(s): FKF7915 - SNOMED Code(s): 780070887 Comment: - HSQ Status and Disposition: Inpatient, dispo TBD
--- NOTE | 2018-12-26 16:35 | ECHO ---
*[facility]* [place] [address] Fax #: [phone] Transthoracic Echocardiogram Patient: Brenda Ge : 1945 Study Date: 12/26/2018 Age: 73 Gender: F HR: 94 bpm Height: 62 in /157.5 cm BSA: 1.69 m^2 Weight: 149.7 lb /68 kg BMI: 27.4 kg/m^2 *Safety Equipment Testing Specialist: Ewa Roman [facility] *Referring Physician: * Blaire Padilla *Reading Physician: * Valentina Servin MD Indications: Abnormal EKG. History: Breast cancer, radiation, congenital heart defect. Risk factors: Hypertension. Diabetes mellitus. Conclusions Summary: - Left ventricle: Moderately increased relative wall thickness of the basal septum. Systolic function is normal. The estimated ejection fraction is 60-65%. - Right ventricle: The cavity size is mildly dilated. Systolic function is normal. - Atrial septum: The septum is thickened. - Mitral valve: The findings are consistent with mild stenosis. There is mild regurgitation. The mean diastolic gradient is 3.0 mm Hg. The valve area is 1.7 cm^2. The valve area by pressure half-time is 3.4 cm^2. The valve area (LVOT continuity) is 1.7 cm^2. - Compared with prior echocardiogram of 09/25/15, septal hypertrophy was noted previously, LVEF is stable. Right ventricle chamber dilatation newly noted. Mitral regurgitation and tricuspid regurgitation are stable. Mitral stenosis newly noted. - Echocardiogram report 2016 notes that patient is s/p ventricular septal defect repair 195, no evidence of this is seen. Atrial septum appears thickened, possible lipomatous varient, but atrial septal defect repair could also be possible if history is incorrect. Study data: Transthoracic echocardiogram. Procedure: Transthoracic echocardiography was performed. Image quality was good. Complete 2D, spectral Doppler, and color flow Doppler. Location: Bedside. Patient status: Inpatient. Patient room number: 445-01. Rhythm: Normal sinus rhythm. Findings Left ventricle: The cavity size is normal. Moderately increased relative wall thickness of the basal septum. Systolic function is normal. The estimated ejection fraction is 60-65%. Wall motion is normal; there are no regional wall motion abnormalities. There is no consistent Doppler evidence of clinically significant diastolic dysfunction. Right ventricle: The cavity size is mildly dilated. Systolic function is normal. Left atrium: The atrium is normal in size. Right atrium: The atrium is normal in size. Atrial septum: The septum is thickened. Mitral valve: The Mitral valve annulus appears calcified. The leaflets are mildly thickened. The findings are consistent with mild stenosis. There is mild regurgitation. Aortic valve: The valve is trileaflet. The leaflets are normal thickness. There is no evidence of stenosis. There is no significant regurgitation. Tricuspid valve: The leaflets are normal thickness. There is no evidence of stenosis. There is trace regurgitation. Pulmonic valve: The leaflets are normal thickness. There is no evidence of stenosis. There is trace regurgitation. Aorta: Aortic root: The aortic root is appears normal. Ascending aorta: The ascending aorta is poorly visualized. Aortic arch: The aortic arch is appears normal. Pericardium: There is no significant pericardial effusion. Pulmonary arteries: The main pulmonary artery is dilated. Systolic pressure is within the normal range. Systemic veins: Inferior vena cava: The vessel is normal in size. There is (>= 50%) respiratory change in the IVC dimension. Measurements Left ventricle Value Ref Aortic valve continued Value Ref СВЕТЛАНА, LAX 4.9 cm 3.8 - 5.2 Peak v, S 1.06 m/sec ----- ESD, LAX 3.2 cm 2.2 - 3.5 VTI, S 19.6 cm ----- FS, LAX 34 % 27 - 45 Mean grad, S 3.0 mm Hg ----- PW, ED, LAX 0.8 cm 0.6 - 0.9 Peak grad, S 4.0 mm Hg ----- E', lat jt, TDI 11.0 cm/sec >=10.0 LVOT/AV, VTI ratio 0.82 - ---- E/e', lat jt, 8 ROSEMARIE, VTI 2.32 cm^2 ---- - TDI ROSEMARIE, Vmax 2.57 cm^2 ----- E', med jt, TDI (L) 5.8 cm/sec >=7.0 E/e', med jt, 16 Mitral valve Value Ref TDI Peak E 0.93 m/sec ----- E', avg, TDI 8.4 cm/sec Peak A 1.04 m/sec ---- - E/e', avg, TDI 11 <=14 Decel time 201 ms - ---- PHT 64 ms ----- LVOT Value Ref Mean grad, D 3.0 mm Hg ----- Diam, S 1.90 cm Peak grad, D 6.0 mm Hg ----- Area 2.8 cm^2 Peak E/A ratio 0.9 ----- Peak mino, S 0.96 m/sec MVA, PHT 3.4 cm^2 ----- VTI, S 16.0 cm Mean grad, S 3 mm Hg Pulmonic valve Value Ref SV 45 ml Peak v, S 0.79 m/sec ----- SV/bsa 27 ml/m^2 Peak grad, S 3.0 mm Hg ----- Ventricular septum Value Ref Tricuspid valve Value Ref IVS, ED (H) 1.5 cm 0.6 - 0.9 TR peak v 1.81 m/sec <=2.8 Peak RV-RA grad, S 13 mm Hg ----- Right ventricle Value Ref СВЕТЛАНА, LAX 2.9 cm Aortic root Value Ref СВЕТЛАНА minor ax, A4C (H) 4.2 cm 1.9 - 3.5 Root diam 2.6 cm <3.9 mid Pressure, S 21 mm Hg Aortic arch Value Ref Arch diam 2.6 cm ----- Left atrium Value Ref AP dim, ES (H) 4.50 cm 2.70 - Decending aorta Value Ref 3.80 Ash peak mino 0.54 m/sec ----- ML dim, A4C 4.2 cm SI dim, A4C 4.9 cm Pulmonary artery Value Ref Vol/bsa, ES, A/L 27 ml/m^2 16 - 34 Pressure, S 18.0 mm Hg ----- Right atrium Value Ref Inferior vena cava Value Ref SI dim, ES 4.6 cm 3.4 - 5.3 Diam 1.0 cm ----- ML dim, ES, A4C 4.3 cm 2.6 - 4.4 Estimated RAP 8 mm Hg Aortic valve Value Ref Jt diam, ED 1.8 cm Legend: (L) and (H) casper values outside specified reference range. Prepared and electronically signed by Valentina Servin MD 12/26/2018 16:33
[2018-12-26] MEDS: Pantoprazole TAB * 40 MG TAB PO SCH (17:33)
[2018-12-26] MEDS: Atorvastatin* 80 MG TAB PO SCH (17:33)
[2018-12-26] MEDS ORDERED: Insulin GLARGINE(*) 1 UNITS UNIT SUBCUT SCH ×3 (21:00)
[2018-12-26] MEDS: cefTRIAXone(*) 1 GM in NS 0.9% 50 ML* 50 ML IVPB SCH (21:34)
[2018-12-27] MEDS: Heparin VIAL(*) 5000 UNITS/ML VIAL (FIVE THOUSAND) SUBCUT SCH ×3 (05:34→21:31)
[2018-12-27 06:58] LABS: ABS Basophils 0.1 10^3/ul (0-0.2); ABS Eosinophils 0.4 10^3/ul (0-0.6); ABS Lymphocytes 3.2 10^3/ul (1.0-4.8); ABS Monocytes 0.7 10^3/ul (0-0.8); ABS Neutrophils 8.8 10^3/ul (1.5-7.7); Eosinophil % 3.2 %; Hematocrit 33 % (35-47); Hemoglobin 11.1 g/dL (12.0-16.0); Lymphocyte % 24.5 %; Mean Corpuscular HGB Conc 34 g/dL (31-36); Mean Corpuscular Hemoglobin 30 pg (27-31); Mean Corpuscular Volume 87 fL (80-97); Mean Platelet Volume 8.5 fL (7.4-10.4); Platelet Count 244 10^3/uL (150-450); Red Blood Count 3.75 10^6 /uL (3.70-4.87); Red Cell Distribution Width 14 % (10-15); White Blood Count 13.3 10^3/uL (3.5-10.8)
[2018-12-27 07:23] LABS: ALT 9 U/L (7-52); AST 11 U/L (13-39); Albumin 3.1 g/dL (3.2-5.2); Alkaline Phosphatase 89 U/L (34-104); Anion Gap 7 mmol/L (2-11); BUN/Creatinine Ratio 12.2 (8-20); Blood Urea Nitrogen 10 mg/dL (6-24); CO2 Carbon Dioxide 25 mmol/L (22-32); Calcium 8.3 mg/dL (8.6-10.3); Chloride 108 mmol/L (101-111); EGFR African American 82.9 (>60); EGFR Non-African American 68.5 (>60); Glucose 115 mg/dL (70-100); Potassium 3.8 mmol/L (3.5-5.0); Sodium 140 mmol/L (135-145); Total Protein 6.1 g/dL (6.4-8.9)
[2018-12-27] MEDS: Insulin LISPRO* 1 UNITS UNIT SUBCUT SCH ×3 (08:39→17:47)
[2018-12-27] MEDS: Metoprolol Tartrate TAB* 25 MG PO SCH ×2 (08:49→21:32)
[2018-12-27] MEDS: PARoxetine HCL TAB* 40 MG PO SCH (08:50)
[2018-12-27] MEDS: Aspirin EC TAB* 81 MG TAB.EC PO SCH (08:51)
[2018-12-27] MEDS: amLODIPine TAB* 5 MG PO SCH (08:51)
[2018-12-27] MEDS: Pantoprazole TAB * 40 MG TAB PO SCH (08:51)
[2018-12-27 09:01] LABS: Troponin I 0.04 ng/mL (<0.04)
--- NOTE | 2018-12-27 09:22 | PN ---
Subjective Date of Service: 12/27/18 Interval History: Ms. Ge feels well this morning. She is feeling much better than yesterday. Denies pain. Offers no complaints. She slept well. Good appetite. Denies CP, SOB , N/V. No concerns from nursing. Family History: Unchanged from Admission Social History: Unchanged from Admission Past Medical History: Unchanged from Admission Objective Active Medications: Acetaminophen (Tylenol Tab*) 650 mg PO Q4H PRN MILD PAIN or TEMP > 100.4 Amlodipine Besylate (Norvasc Tab*) 10 mg PO DAILY [facility] Aspirin (Aspirin Ec Tab*) 81 mg PO DAILY [facility] Atorvastatin Calcium (Lipitor*) 80 mg PO 1700 [facility] Dextrose (Dextrose 50% Vial 50 Ml*) 25 ml IV PUSH .FOR FS < 60 - SS PRN FS < 60 Heparin Sodium (Porcine) (Heparin Vial(*)) 5,000 units SUBCUT Q8HR [facility] Sodium Chloride (Ns 0.9% 1000 Ml) 1,000 mls @ 100 mls/hr IV PER RATE [facility] Ceftriaxone Sodium 1 gm/ (Sodium Chloride) 50 mls @ 100 mls/hr IVPB Q24H [facility] Insulin Glargine (Lantus(*)) 20 units SUBCUT BEDTIME [facility] Insulin Human Lispro (Humalog*) 0 units SUBCUT AC [facility]; Protocol Metoprolol Tartrate (Lopressor Tab*) 12.5 mg PO Q12HR [facility] Pantoprazole Sodium (Protonix Tab*) 40 mg PO DAILY [facility] Paroxetine HCl (Paxil Tab*) 40 mg PO DAILY [facility] Vital Signs - 8 hr 12/27/18 12/27/18 12/27/18 03:04 07:15 08:00 Temperature 97.5 F 98 F Pulse Rate 69 75 Respiratory 20 20 20 Rate Blood Pressure 125/53 156/70 (mmHg) O2 Sat by Pulse 95 97 Oximetry Oxygen Devices in Use Now: None Appearance: Elderly female lying in bed in NAD Ears/Nose/Mouth/Throat: Mucous Membranes Moist Neck: NL Appearance and Movements; NL JVP, Trachea Midline Respiratory: Symmetrical Chest Expansion and Respiratory Effort, Clear to Auscultation Cardiovascular: NL Sounds; No Murmurs; No JVD Abdominal: NL Sounds; No Tenderness; No Distention Neurological: Alert and Oriented x 3 Lines/Tubes/Other Access: Clean, Dry and Intact Peripheral IV Nutrition: Taking PO's Result Diagrams: 12/27/18 06:41 12/27/18 06:41 Assess/Plan/Problems-Billing Assessment: Ms. Ge is a 73 yo F with PMH of IDDM, depression, HTN; who presented to the ED with EMS after being found on the floor by a visiting aid, noted to be hyperglycemic with lactic acidosis and dehydrated. - Patient Problems (1) Hyperglycemia Code(s): R73.9 - HYPERGLYCEMIA, UNSPECIFIED Comment: - Up to 600s on admission - Secondary to non-compliance with insulin - A1c 11% though patient reports she only stopped insulin for a few days - Continue Lispro SS; increase Lantus to 25 units (2) Lactic acidosis due to diabetes mellitus Code(s): E11.10 - TYPE 2 DIABETES MELLITUS WITH KETOACIDOSIS WITHOUT COMA Comment: - In the setting of hyperglycemia - No obvious source of infection - Trending down with aggressive fluid management and glycemic control (3) Demand ischemia Code(s): I24.8 - OTHER FORMS OF ACUTE ISCHEMIC HEART DISEASE Comment: - Peaked at 0.06, now trending down - Mildly elevated troponin presence of uncontrolled hyperglycemia, lactic acidosis, and prolonged time on the floor - EKG with some flattening of T waves; repeat EKG essentially unchanged - May represent underlying CAD given uncontrolled diabetes, but patient is asymptomatic - Consider stress test this admission if any further changes - Continue metoprolol, atorvastatin, aspirin (4) Leukocytosis Code(s): D72.829 - ELEVATED WHITE BLOOD CELL COUNT, UNSPECIFIED Comment: - Trending down from admission - No clear source of infection and asymptomatic - CT abd/pelvis negative, CXR negative, urine negative, blood cultures negative ; had one dose ceftriaxone in ED - Continue to trend (5) Weakness Code(s): R53.1 - WEAKNESS Comment: - Multifactorial, 2/2 hyperglycemia, deconditioning, poor living conditions - PT/OT evals (6) Impaired decision making Code(s): Z78.9 - OTHER SPECIFIED HEALTH STATUS Comment: - Per social work, patient is in poor living conditions; hoarding, animal and human feces infested home and APS is involved - Psychiatry consulted for capacity and determined that she lacks capacity to make her own medical decisions (7) Hypertension Code(s): I10 - ESSENTIAL (PRIMARY) HYPERTENSION Comment: - Mostly normotensive with occasional hypertensive readings - Continue amlodipine, metoprolol (8) Depression Code(s): F32.9 - MAJOR DEPRESSIVE DISORDER, SINGLE EPISODE, UNSPECIFIED Comment: - Continue paroxetine (9) DVT prophylaxis Comment: - Heparin SQ (10) Full code status Code(s): Z78.9 - OTHER SPECIFIED HEALTH STATUS Comment: Status and Disposition: Inpatient. She lacks capacity to make medical decisions and likely needs rehab/ placement. Attending: Elvin Barahona
[2018-12-27] MEDS: NS 0.9% 1000 ML** 1,000 ML IV SCH ×2 (12:43→21:39)
[2018-12-27] MEDS: Atorvastatin* 80 MG TAB PO SCH (17:47)
[2018-12-27] MEDS: Insulin GLARGINE(*) 1 UNITS UNIT SUBCUT SCH (21:30)
[2018-12-27] MEDS: cefTRIAXone(*) 1 GM in NS 0.9% 50 ML* 50 ML IVPB SCH (21:33)
[2018-12-28 05:19] LABS: ABS Basophils 0.1 10^3/ul (0-0.2); ABS Eosinophils 0.5 10^3/ul (0-0.6); ABS Monocytes 0.8 10^3/ul (0-0.8); ABS Neutrophils 8.4 10^3/ul (1.5-7.7); Hematocrit 34 % (35-47); Hemoglobin 11.2 g/dL (12.0-16.0); Lymphocyte % 23.4 %; Mean Corpuscular HGB Conc 33 g/dL (31-36); Mean Corpuscular Hemoglobin 29 pg (27-31); Mean Corpuscular Volume 86 fL (80-97); Mean Platelet Volume 8.5 fL (7.4-10.4); Platelet Count 260 10^3/uL (150-450); Red Blood Count 3.91 10^6 /uL (3.70-4.87); Red Cell Distribution Width 14 % (10-15); White Blood Count 12.7 10^3/uL (3.5-10.8)
[2018-12-28] MEDS: Heparin VIAL(*) 5000 UNITS/ML VIAL (FIVE THOUSAND) SUBCUT SCH ×3 (05:37→20:01)
[2018-12-28] MEDS: Insulin LISPRO* 1 UNITS UNIT SUBCUT SCH ×3 (09:40→17:12)
[2018-12-28] MEDS: Metoprolol Tartrate TAB* 25 MG PO SCH ×2 (09:49→19:57)
[2018-12-28] MEDS: amLODIPine TAB* 5 MG PO SCH (09:49)
[2018-12-28] MEDS: Pantoprazole TAB * 40 MG TAB PO SCH (09:50)
[2018-12-28] MEDS: Aspirin EC TAB* 81 MG TAB.EC PO SCH (09:50)
[2018-12-28] MEDS: PARoxetine HCL TAB* 40 MG PO SCH (09:50)
[2018-12-28] MEDS: NS 0.9% 1000 ML** 1,000 ML IV SCH (10:15)
[2018-12-28] MEDS: Atorvastatin* 80 MG TAB PO SCH (17:12)
--- NOTE | 2018-12-28 17:23 | DS ---
CC: Dr. Ruby Trinh * DISCHARGE SUMMARY: DATE OF ADMISSION: 12/25/18 DATE OF DISCHARGE: 12/28/18 PRIMARY CARE PROVIDER: Dr. Ruby Tirnh. MY ATTENDING WHILE IN THE HOSPITAL: Dr. Elvin Barahona.* (DICTATED BY GIBRAN ANTHONY) PRIMARY DISCHARGE DIAGNOSES: 1. Hyperglycemic hyperosmolar state. 2. Dehydration. 3. Colitis. 4. Leukocytosis. 5. Acute kidney injury, resolved. 6. Elevated troponin, likely due to demand ischemia. SECONDARY DISCHARGE DIAGNOSES: 1. Diabetes mellitus type 2. 2. History of breast cancer, status post lumpectomy and radiation. 3. Depression. 4. History of congenital heart abnormality, status post fixation. STUDIES DONE WHILE IN THE HOSPITAL: EKG from 12/25/[address]-segment depression and T-wave inversion in I, aVL, V2, V3, V4, and V5. Normal axis. Normal ST segment elevation or depression, hypertrophy or enlargement, intraventricular conduction delay. Repeat EKG done 12/25/[address]-depression and T-wave inversion. No significant changes. QTc 582, rate 104. Repeat EKG from 12/26/18 read as continued improvement in ST-segment depression and T-wave inversion. No other significant changes. Rate of 101, QTc of 422. Chest x-ray from 12/25/18 read as cardiomegaly with no definite acute cardiopulmonary disease. Transthoracic echocardiogram from 12/25/18 read as increased left ventricular wall thickness of the basal septum, systolic function is normal. Estimated ejection fraction is 60% to 65%. Right ventricular chamber size is mildly dilated, systolic function is normal. Atrial septum, mitral valve consistent with mild stenosis and mild irritation. Compared to previous exam, there are no significant changes. Chest, abdomen, and pelvis CT read as: No CT findings of the chest correlate with with the patient's symptomatology. Infectious colitis at the mid transverse through proximal sigmoid colon and distal colonic diverticulosis. MEDICATIONS AT DISCHARGE: 1. Paroxetine 40 mg p.o. daily. 2. Amitriptyline 50 mg p.o. at bedtime. 3. Aspirin 81 mg p.o. daily. 4. Atorvastatin 80 mg p.o. daily. 5. Lisinopril 40 mg p.o. daily. 6. Insulin aspart daily 8 units sliding scale with meals. 7. Amlodipine 10 mg p.o. daily. 8. Basaglar 25 units subcutaneous daily. 9. Tylenol 650 mg p.o. q.4 hours as needed. 10. Cefuroxime 250 mg p.o. b.i.d. x8 doses. 11. Metoprolol tartrate 12.5 mg p.o. q.12 hours. New medications at discharge: 1. Tylenol. 2. Cefuroxime. 3. Metoprolol. Medications discontinued at discharge: 1. Insulin glargine 40 units subcutaneous daily. HOSPITAL COURSE: This is a brief summary of the patient's presentation. For more details, please see the history and physical from Blaire Padilla NP, on 12/25/18. In brief, the patient is a 73-year-old female with past medical history significant for the above who presented to the emergency department after several days of not taking her insulin. She felt progressively more weak and had a fall. She had 1 episode of nausea, vomiting, and diarrhea. She was lying on the floor for approximately 12 hours and then was brought into the emergency room by her aide the next day due to weakness. The patient did not take her insulin or checked her blood sugar. The patient's blood sugar in the emergency department was found to be high at 644. She was found to have elevated lactic acid and elevated troponin as well as a low magnesium. The patient was admitted to the hospital. The patient's troponin was trended and stayed stable. The patient's lactic acidosis resolved with fluids. The patient 's A1c was found to be 11. The patient's blood glucoses were quickly gotten under control. The patient had an elevated creatinine at 1.81, significantly up from her baseline, which trend to near baseline at 0.82 on the day of discharge. The patient had elevated white blood cell count of unclear etiology. The patient was started on ceftriaxone upon her admission and her white blood cell count trended down. The patient had no focalizing symptoms except for her above evidence of infectious colitis, but this does not correlate well with the patient's symptoms. The patient was seen in consultation by Dr. Catracho Naylor of Psychiatry due to concerns of the patient's ability to take care for herself and refusal of long-term facility placement. The patient seemed not to have medical decision making capacity at that time. The patient was found to have rehab needs and was stable and amenable for discharge to [facility] on 12/28/18. PHYSICAL EXAMINATION ON THE DAY OF DISCHARGE: General: The patient is a 73- year- old female who appears older than stated age and sitting comfortably in bed, in no acute distress. Vital Signs: Temperature 97.6, pulse rate 71, respiratory rate 16, oxygen saturation 96% on room air, blood pressure 144/69. HEENT: Head normocephalic, atraumatic. Sclerae anicteric. No conjunctival injection. Nasal mucosa moist. Oral mucosa moist. No pharyngeal erythema, discharge, or exudate. Neck: Supple, nontender. No lymphadenopathy. No carotid bruits auscultated. No JVD. Cardiac: Regular rate and rhythm. No clicks, murmurs, gallops, or rubs. Pulses are 2+ in the bilateral dorsalis pedis , posterior tibialis, and radial areas. Respiratory: Clear to auscultation bilaterally. No wheezes, rales, or rhonchi. Good air exchange bilaterally. Abdomen: Soft, nontender, nondistended. Bowel sounds present and normoactive in all 4 quadrants. No hepatomegaly. No abdominal bruits auscultated. No hepatojugular reflux. Genitourinary: No suprapubic or CVA tenderness. Skin: Clear, dry, intact. No rash. Neurologic: Cranial nerves II through XII are intact. No focal deficits. Alert and oriented x3. Psychiatric: Pleasant and cooperative. DISCHARGE PLAN BY PROBLEM: 1. Hyperglycemic hyperosmolar state, diabetes mellitus type 2. The patient will be restarted on a decreased dose of her Basaglar as well as her sliding scale which have been working well for her. In the hospital, the patient has been receiving approximately 2 units with meals while in the hospital and her blood sugars have been in very good control. Medication compliance is likely calixto to the patient's diabetic control. The patient should be referred to an integrated logistics programs director outpatient for aid in assisting the transferring of the patient to a better regimen for her diabetes at some point including oral medications and possible injectables that are insulin. 2. Elevated troponin. The patient had an elevated troponin with EKG changes in the setting of tachycardia and severe dehydration. This is likely related to demand ischemia. The patient should be considered for an outpatient stress test. The patient is on maximum secondary prevention with statin, aspirin, and was started on metoprolol while inpatient. 3. The patient was deemed by the psychiatrist to lack medical decision making capacity while in the hospital. 4. Acute kidney injury. This is resolved. This was due to dehydration. 5. Hypomagnesemia. This resolved with supplementation. 6. CT evidence of infectious colitis. The patient has no symptoms of infectious colitis, though she did have a severely elevated CRP and white blood cell count on admission. The patient was started on ceftriaxone and improved. This will be taken for a total of 7 days, though she has no localizing symptoms. This could be related to infectious colitis either viral or bacterial which is improving by itself or with antibiotics. The patient has never had a colonoscopy and this should be scheduled outpatient through her primary care provider either in the virtual or procedural form due to this abnormality in her colon. 7. Hyperlipidemia. The patient's LDL cholesterol in the hospital was 52. The patient needs no adjustment in her statin dose. 8. Hypertension. The patient is hypertensive though her lisinopril has been held in the setting of acute kidney injury. This will be resumed at discharge and she will ongoing care for this. 9. Depression. Continue the patient's paroxetine. DISPOSITION: senior living facility. CONDITION: Stable. TIME SPENT: Approximately 60 minutes was spent on the discharge of this patient , 30 of which was spent [id number] with the obtaining history and physical and discussing treatment plan. GIBRAN ANTHONY [id number]/[facility] #: [id number] KENNEDY
--- NOTE | 2018-12-28 17:24 | PN ---
Hospitalist Progress Note Date of Service: 12/28/18 Patient unable to go to [facility] today due to insurance authorization delay. Please see dictated Discharge Summary from this date for plan and Physical Examination.
[2018-12-28] MEDS: Insulin GLARGINE(*) 1 UNITS UNIT SUBCUT SCH (19:52)
[2018-12-28] MEDS: cefTRIAXone(*) 1 GM in NS 0.9% 50 ML* 50 ML IVPB SCH (21:42)
[2018-12-29] MEDS: Heparin VIAL(*) 5000 UNITS/ML VIAL (FIVE THOUSAND) SUBCUT SCH ×3 (06:05→21:18)
[2018-12-29 07:54] LABS: ABS Basophils 0.2 10^3/ul (0-0.2); ABS Eosinophils 0.5 10^3/ul (0-0.6); ABS Lymphocytes 2.6 10^3/ul (1.0-4.8); ABS Monocytes 0.7 10^3/ul (0-0.8); ABS Neutrophils 8.9 10^3/ul (1.5-7.7); Eosinophil % 3.7 %; Hematocrit 34 % (35-47); Hemoglobin 11.7 g/dL (12.0-16.0); Lymphocyte % 20.1 %; Mean Corpuscular HGB Conc 34 g/dL (31-36); Mean Corpuscular Hemoglobin 29 pg (27-31); Mean Corpuscular Volume 86 fL (80-97); Platelet Count 265 10^3/uL (150-450); Red Blood Count 3.97 10^6 /uL (3.70-4.87); Red Cell Distribution Width 14 % (10-15); White Blood Count 12.9 10^3/uL (3.5-10.8)
[2018-12-29] MEDS: Insulin LISPRO* 1 UNITS UNIT SUBCUT SCH ×3 (08:00→17:18)
[2018-12-29 08:11] LABS: BUN/Creatinine Ratio 13.1 (8-20); Calcium 8.3 mg/dL (8.6-10.3); EGFR African American 80.6 (>60); EGFR Non-African American 66.6 (>60); Magnesium 1.4 mg/dL (1.9-2.7); Potassium 3.7 mmol/L (3.5-5.0)
[2018-12-29] MEDS: amLODIPine TAB* 5 MG PO SCH (08:51)
[2018-12-29] MEDS: Aspirin EC TAB* 81 MG TAB.EC PO SCH (08:51)
[2018-12-29] MEDS: PARoxetine HCL TAB* 40 MG PO SCH (08:51)
[2018-12-29] MEDS: Pantoprazole TAB * 40 MG TAB PO SCH (08:51)
[2018-12-29] MEDS: Metoprolol Tartrate TAB* 25 MG PO SCH ×2 (08:55→20:42)
[2018-12-29] MEDS ORDERED: Magnesium Sulf 4 GM/100 ML IV* 4,000 MG/100 ML BAG IVPB ONE (09:28)
[2018-12-29] MEDS: Docusate CAP* 100 MG PO PRN ×2 (14:05→21:55)
--- NOTE | 2018-12-29 16:21 | PN ---
Subjective Date of Service: 12/29/18 Interval History: Patient is feeling well today. Patient denies F/C, N/V, CP, SOB, dizziness, abdominal pain, diarrhea, dysuria, or other pain. Patient states she wants to go home, but then is agreeable to staying after the plan is reinforced with her. Family History: Unchanged from Admission Social History: Unchanged from Admission Past Medical History: Unchanged from Admission Objective Active Medications: Acetaminophen (Tylenol Tab*) 650 mg PO Q4H PRN PRN Reason: MILD PAIN or TEMP > 100.4 Amlodipine Besylate (Norvasc Tab*) 10 mg PO DAILY [facility] Last Admin: 12/29/18 08:51 Dose: 10 mg Aspirin (Aspirin Ec Tab*) 81 mg PO DAILY [facility] Last Admin: 12/29/18 08:51 Dose: 81 mg Atorvastatin Calcium (Lipitor*) 80 mg PO 1700 [facility] Last Admin: 12/28/18 17:12 Dose: 80 mg Dextrose (Dextrose 50% Vial 50 Ml*) 25 ml IV PUSH .FOR FS < 60 - SS PRN PRN Reason: FS < 60 Docusate Sodium (Colace Cap*) 100 mg PO BID PRN PRN Reason: CONSTIPATION Last Admin: 12/29/18 14:05 Dose: 100 mg Heparin Sodium (Porcine) (Heparin Vial(*)) 5,000 units SUBCUT Q8HR [facility] Last Admin: 12/29/18 14:05 Dose: 5,000 units Ceftriaxone Sodium 1 gm/ (Sodium Chloride) 50 mls @ 100 mls/hr IVPB Q24H [facility] Last Admin: 12/28/18 21:42 Dose: 100 mls/hr Insulin Glargine (Lantus(*)) 25 units SUBCUT BEDTIME [facility] Last Admin: 12/28/18 19:52 Dose: 25 units Insulin Human Lispro (Humalog*) 0 units SUBCUT AC [facility]; Protocol Last Admin: 12/29/18 14:01 Dose: 2 units Metoprolol Tartrate (Lopressor Tab*) 12.5 mg PO Q12HR [facility] Last Admin: 12/29/18 08:55 Dose: 12.5 mg Pantoprazole Sodium (Protonix Tab*) 40 mg PO DAILY [facility] Last Admin: 12/29/18 08:51 Dose: 40 mg Paroxetine HCl (Paxil Tab*) 40 mg PO DAILY [facility] Last Admin: 12/29/18 08:51 Dose: 40 mg Vital Signs - 8 hr 12/29/18 11:15 Temperature 98.5 F Pulse Rate 88 Respiratory 18 Rate Blood Pressure 110/61 (mmHg) Oxygen Devices in Use Now: None Appearance: Patient is a 73yo female who appears stated age and is sitting in the bed in NAD. Eyes: No Scleral Icterus, PERRLA Ears/Nose/Mouth/Throat: NL Teeth, Lips, Gums, Clear Oropharnyx, Mucous Membranes Moist Neck: NL Appearance and Movements; NL JVP, Trachea Midline Respiratory: Symmetrical Chest Expansion and Respiratory Effort, Clear to Auscultation Cardiovascular: NL Sounds; No Murmurs; No JVD, RRR, No Edema Abdominal: NL Sounds; No Tenderness; No Distention, No Hepatosplenomegaly Lymphatic: No Cervical Adenopathy Extremities: No Edema, No Clubbing, Cyanosis Skin: No Rash or Ulcers, No Nodules or Sclerosis Neurological: Alert and Oriented x 3, NL Sensation, NL Muscle Strength and Tone , - - CN II-XII intact. Result Diagrams: 12/29/18 07:18 12/29/18 07:18 Microbiology and Other Data: Microbiology 12/25/18 13:53 Urine Culture - Final Urine 12/25/18 12:42 Aerobic Blood Culture - Preliminary Blood Venous No Growth Day 1 Anaerobic Blood Culture - Preliminary No Growth Day 1 12/25/18 12:49 Aerobic Blood Culture - Preliminary Blood Venous No Growth Day 1 Anaerobic Blood Culture - Preliminary No Growth Day 1 Diagnostic Imaging: Patient Name: ROSA GE Medical Record#: [id number] Ordering Physician: Blaire Padilla [employer] Acct.#: [id number] : 1945 Age: 73 Sex: F Location: [address] [place] [address] MEDICAL/TELEMETRY Exam Date: 12/25/182038 ADM Status: ADM IN Order Information: CT CHEST/ABD/PEL W/O Accession Number: [id number] CPT: 13214 PROCEDURE INFORMATION: Exam: CT Chest Without Contrast Exam date and time: 12/25/2018 9:29 PM Clinical history: 73 years old, female; Fever; Additional info: Low grade fever , leukocytosis, elevated crp TECHNIQUE: Imaging protocol: Computed tomography of the chest without contrast. Radiation optimization: All CT scans at this facility use at least one of these dose optimization techniques: automated exposure control; mA and/or kV adjustment per patient size (includes targeted exams where dose is matched to clinical indication); or iterative reconstruction. COMPARISON: No relevant prior studies available. FINDINGS: Thyroid: No thyroid nodules. Lungs: Mild bibasilar atelectasis. No pulmonary nodules, masses, or consolidations. No bronchiectasis, peribronchial thickening, or luminal defects. Pleural space: Normal. No pneumothorax. No pleural effusion. Heart: There is mild atherosclerotic calcification of the coronary arteries. Aorta: The aorta demonstrates mild atherosclerotic calcification. 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 Lymph nodes: Normal. No enlarged lymph nodes. Bones/joints: No acute fractures. No suspicious bone lesions. Soft tissues: Left breast lumpectomy. No nodules or masses. IMPRESSION: No CT findings to correlate with patient's symptomatology. COMMENT: See concurrently obtained abdomen and pelvis CT for further details. Assess/Plan/Problems-Billing Assessment: Ms. Ge is a 73 yo F with PMH of IDDM, depression, HTN; who presented to the ED with EMS after being found on the floor by a visiting aid, noted to be hyperglycemic with lactic acidosis and dehydrated. - Patient Problems (1) Lactic acidosis due to diabetes mellitus Current Visit: Yes Status: Acute Code(s): E11.10 - TYPE 2 DIABETES MELLITUS WITH KETOACIDOSIS WITHOUT COMA SNOMED Code(s): 423949620 Comment: - With Hyperglycemic Hyperosmolar State - No obvious source of infection - Trended down with aggressive fluid management and glycemic control - Now appears euvolemic. (2) Hyperglycemia Current Visit: Yes Status: Acute Code(s): R73.9 - HYPERGLYCEMIA, UNSPECIFIED SNOMED Code(s): 94086846 Comment: - Up to 600s on admission - Secondary to non-compliance with insulin - A1c 11% though patient reports she only stopped insulin for a few days - Continue Lispro SS; increase Lantus to 25 units (3) Demand ischemia Current Visit: Yes Status: Acute Code(s): I24.8 - OTHER FORMS OF ACUTE ISCHEMIC HEART DISEASE SNOMED Code(s): 085252961 Comment: - Peaked at 0.06, now trending down - Mildly elevated troponin presence of uncontrolled hyperglycemia, lactic acidosis, and prolonged time on the floor - EKG with some flattening of T waves; repeat EKG essentially unchanged, Repeat now essentially normal - May represent underlying CAD given uncontrolled diabetes, Had 1 episode equivocal CP - Since Patient will be inpatient Monday and has concerns with F/U, will get stress test Monday - Continue metoprolol, atorvastatin, aspirin (4) Depression Current Visit: Yes Status: Acute Code(s): F32.9 - MAJOR DEPRESSIVE DISORDER , SINGLE EPISODE, UNSPECIFIED SNOMED Code(s): 07878362 Comment: - Continue paroxetine (5) Impaired decision making Current Visit: Yes Status: Acute Code(s): Z78.9 - OTHER SPECIFIED HEALTH STATUS SNOMED Code(s): 952864247 Comment: - Per social work, patient is in poor living conditions; hoarding, animal and human feces infested home and APS is involved - Psychiatry consulted for capacity and determined that she lacks capacity to make her own medical decisions (6) Leukocytosis Current Visit: Yes Status: Acute Code(s): D72.829 - ELEVATED WHITE BLOOD CELL COUNT, UNSPECIFIED SNOMED Code(s): 579143264 Comment: - Trending down from admission - No clear source of infection and asymptomatic - CT abd/pelvis shows ? Infectious colitis without symptoms to correlate - CXR negative, urine negative, blood cultures negative; Continue Ceftriaxone (7) Weakness Current Visit: Yes Status: Acute Code(s): R53.1 - WEAKNESS SNOMED Code(s) : 53663825 Comment: - Multifactorial, 2/2 hyperglycemia, deconditioning, poor living conditions - PT/OT evals, Placement Pending. (8) Hypertension Current Visit: No Status: Chronic Code(s): I10 - ESSENTIAL (PRIMARY) HYPERTENSION SNOMED Code(s): 74464351 Comment: - Mostly normotensive with occasional hypertensive readings - Continue amlodipine, metoprolol (9) DVT prophylaxis Current Visit: No Status: Resolved Priority: Medium Code(s): CYM3852 - SNOMED Code(s): 804338197 Comment: - Heparin SQ (10) Full code status Current Visit: No Status: Acute Code(s): Z78.9 - OTHER SPECIFIED HEALTH STATUS SNOMED Code(s): 264261353 Comment: Status and Disposition: Inpatient. She lacks capacity to make medical decisions and is pending placement.
[2018-12-29] MEDS: Atorvastatin* 80 MG TAB PO SCH (17:18)
[2018-12-29] MEDS: cefTRIAXone(*) 1 GM in NS 0.9% 50 ML* 50 ML IVPB SCH (21:14)
[2018-12-29] MEDS: Insulin GLARGINE(*) 1 UNITS UNIT SUBCUT SCH (21:19)
[2018-12-30] MEDS: Heparin VIAL(*) 5000 UNITS/ML VIAL (FIVE THOUSAND) SUBCUT SCH ×3 (05:16→21:53)
[2018-12-30] MEDS: Insulin LISPRO* 1 UNITS UNIT SUBCUT SCH ×3 (08:25→16:58)
[2018-12-30] MEDS: Metoprolol Tartrate TAB* 25 MG PO SCH ×2 (08:26→21:54)
[2018-12-30] MEDS: Pantoprazole TAB * 40 MG TAB PO SCH (08:26)
[2018-12-30] MEDS: amLODIPine TAB* 5 MG PO SCH (08:26)
[2018-12-30] MEDS: PARoxetine HCL TAB* 40 MG PO SCH (08:27)
[2018-12-30] MEDS: Aspirin EC TAB* 81 MG TAB.EC PO SCH (08:27)
[2018-12-30] MEDS: Atorvastatin* 80 MG TAB PO SCH (17:17)
--- NOTE | 2018-12-30 18:10 | PN ---
Subjective Date of Service: 12/30/18 Interval History: Patient with no complaints today. No acute events overnight. Patient denies chest pain, difficulty breathing, abd pain, dysuria. Is agreeable to awaiting [facility] placement. Family History: Unchanged from Admission Social History: Unchanged from Admission Past Medical History: Unchanged from Admission Objective Active Medications: Acetaminophen (Tylenol Tab*) 650 mg PO Q4H PRN PRN Reason: MILD PAIN or TEMP > 100.4 Amlodipine Besylate (Norvasc Tab*) 10 mg PO DAILY [facility] Last Admin: 12/30/18 08:26 Dose: 10 mg Aspirin (Aspirin Ec Tab*) 81 mg PO DAILY [facility] Last Admin: 12/30/18 08:27 Dose: 81 mg Atorvastatin Calcium (Lipitor*) 80 mg PO 1700 [facility] Last Admin: 12/30/18 17:17 Dose: 80 mg Dextrose (Dextrose 50% Vial 50 Ml*) 25 ml IV PUSH .FOR FS < 60 - SS PRN PRN Reason: FS < 60 Docusate Sodium (Colace Cap*) 100 mg PO BID PRN PRN Reason: CONSTIPATION Last Admin: 12/29/18 21:55 Dose: 100 mg Heparin Sodium (Porcine) (Heparin Vial(*)) 5,000 units SUBCUT Q8HR [facility] Last Admin: 12/30/18 12:16 Dose: 5,000 units Ceftriaxone Sodium 1 gm/ (Sodium Chloride) 50 mls @ 100 mls/hr IVPB Q24H [facility] Last Admin: 12/29/18 21:14 Dose: 100 mls/hr Insulin Glargine (Lantus(*)) 25 units SUBCUT BEDTIME [facility] Last Admin: 12/29/18 21:19 Dose: 25 units Insulin Human Lispro (Humalog*) 0 units SUBCUT AC [facility]; Protocol Last Admin: 12/30/18 16:58 Dose: Not Given Metoprolol Tartrate (Lopressor Tab*) 12.5 mg PO Q12HR [facility] Last Admin: 12/30/18 08:26 Dose: 12.5 mg Pantoprazole Sodium (Protonix Tab*) 40 mg PO DAILY [facility] Last Admin: 12/30/18 08:26 Dose: 40 mg Paroxetine HCl (Paxil Tab*) 40 mg PO DAILY [facility] Last Admin: 12/30/18 08:27 Dose: 40 mg Vital Signs - 8 hr 12/30/18 12/30/18 11:16 15:14 Temperature 97.1 F 98.0 F Pulse Rate 54 65 Respiratory 17 17 Rate Blood Pressure 125/60 129/57 (mmHg) O2 Sat by Pulse 96 94 Oximetry Oxygen Devices in Use Now: None Appearance: Elderly white female, laying in bed, appears stated age, appears in NAD Eyes: No Scleral Icterus, - - PERRL Ears/Nose/Mouth/Throat: Mucous Membranes Moist Neck: NL Appearance and Movements; NL JVP Respiratory: Symmetrical Chest Expansion and Respiratory Effort, Clear to Auscultation Cardiovascular: NL Sounds; No Murmurs; No JVD, RRR Abdominal: - - abd soft, nontender, nondistended Extremities: No Edema, No Clubbing, Cyanosis Skin: No Rash or Ulcers Neurological: Alert and Oriented x 3, NL Muscle Strength and Tone Result Diagrams: 12/29/18 07:18 12/29/18 07:18 Microbiology and Other Data: Microbiology 12/25/18 13:53 Urine Culture - Final Urine 12/25/18 12:42 Aerobic Blood Culture - Preliminary Blood Venous No Growth Day 1 Anaerobic Blood Culture - Preliminary No Growth Day 1 12/25/18 12:49 Aerobic Blood Culture - Preliminary Blood Venous No Growth Day 1 Anaerobic Blood Culture - Preliminary No Growth Day 1 Diagnostic Imaging: Patient Name: ROSA GE Medical Record#: [id number] Ordering Physician: Blaire Padilla NP Acct.#: [id number] : 1945 Age: 73 Sex: F Location: [address] [place] [address] MEDICAL/TELEMETRY Exam Date: 12/25/182038 ADM Status: ADM IN Order Information: CT CHEST/ABD/PEL W/O Accession Number: [id number] CPT: 83686 PROCEDURE INFORMATION: Exam: CT Chest Without Contrast Exam date and time: 12/25/2018 9:29 PM Clinical history: 73 years old, female; Fever; Additional info: Low grade fever , leukocytosis, elevated crp TECHNIQUE: Imaging protocol: Computed tomography of the chest without contrast. Radiation optimization: All CT scans at this facility use at least one of these dose optimization techniques: automated exposure control; mA and/or kV adjustment per patient size (includes targeted exams where dose is matched to clinical indication); or iterative reconstruction. COMPARISON: No relevant prior studies available. FINDINGS: Thyroid: No thyroid nodules. Lungs: Mild bibasilar atelectasis. No pulmonary nodules, masses, or consolidations. No bronchiectasis, peribronchial thickening, or luminal defects. Pleural space: Normal. No pneumothorax. No pleural effusion. Heart: There is mild atherosclerotic calcification of the coronary arteries. Aorta: The aorta demonstrates mild atherosclerotic calcification. 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 Lymph nodes: Normal. No enlarged lymph nodes. Bones/joints: No acute fractures. No suspicious bone lesions. Soft tissues: Left breast lumpectomy. No nodules or masses. IMPRESSION: No CT findings to correlate with patient's symptomatology. COMMENT: See concurrently obtained abdomen and pelvis CT for further details. Assess/Plan/Problems-Billing Assessment: Ms. Ge is a 73 yo F with PMH of IDDM, depression, HTN; who presented to the ED with EMS after being found on the floor by a visiting aid, noted to be hyperglycemic with lactic acidosis and dehydrated. - Patient Problems (1) Lactic acidosis due to diabetes mellitus Current Visit: Yes Status: Acute Code(s): E11.10 - TYPE 2 DIABETES MELLITUS WITH KETOACIDOSIS WITHOUT COMA SNOMED Code(s): 931877494 Comment: - With Hyperglycemic Hyperosmolar State - No obvious source of infection - Trended down with aggressive fluid management and glycemic control - Now appears euvolemic. (2) Hyperglycemia Current Visit: Yes Status: Acute Code(s): R73.9 - HYPERGLYCEMIA, UNSPECIFIED SNOMED Code(s): 60630444 Comment: - BG to 600s on admission - Secondary to non-compliance with insulin - A1c 11% though patient reports she only stopped insulin for a few days. She obviously has long-term poor control of her BGs - Continue Lispro SS and lantus 25 U; good control with this combination (3) Elevated troponin Current Visit: Yes Status: Acute Code(s): R79.89 - OTHER SPECIFIED ABNORMAL FINDINGS OF BLOOD CHEMISTRY SNOMED Code(s): 000545008 Comment: -elevated troponin peaked at 0.06 -with ST depressions in septal leads which have since resolved -echo without wall motion abnormalities or EF changes -given severely uncontrolled diabetes, stress test has been ordered and is pending (4) Depression Current Visit: Yes Status: Acute Code(s): F32.9 - MAJOR DEPRESSIVE DISORDER , SINGLE EPISODE, UNSPECIFIED SNOMED Code(s): 75716636 Comment: - Continue paroxetine (5) Leukocytosis Current Visit: Yes Status: Acute Code(s): D72.829 - ELEVATED WHITE BLOOD CELL COUNT, UNSPECIFIED SNOMED Code(s): 787445967 Comment: - Trending down from admission - No clear source of infection and asymptomatic - CT abd/pelvis shows ? Infectious colitis without symptoms to correlate - CXR negative, urine negative, blood cultures negative; D/c Ceftriaxone ( patient received 5 day course) - Should have follow up CBC after discharge (6) Hypertension Current Visit: Yes Status: Chronic Code(s): I10 - ESSENTIAL (PRIMARY) HYPERTENSION SNOMED Code(s): 48698807 Comment: - Mostly normotensive with occasional hypertensive readings - Continue amlodipine, metoprolol (7) Impaired decision making Current Visit: Yes Status: Acute Code(s): Z78.9 - OTHER SPECIFIED HEALTH STATUS SNOMED Code(s): 085731685 Comment: - Per social work, patient is in poor living conditions; hoarding, animal and human feces infested home and APS is involved - Psychiatry consulted for capacity and determined that she lacks capacity to make her own medical decisions (8) DVT prophylaxis Current Visit: Yes Status: Resolved Priority: Medium Code(s): DST9886 - SNOMED Code(s): 214860493 Comment: - Heparin SQ (9) Full code status Current Visit: Yes Status: Acute Code(s): Z78.9 - OTHER SPECIFIED HEALTH STATUS SNOMED Code(s): 539330206 Comment: Status and Disposition: Inpatient. She lacks capacity to make medical decisions and is pending placement.
[2018-12-30] MEDS: Insulin GLARGINE(*) 1 UNITS UNIT SUBCUT SCH (21:54)
[2018-12-31] MEDS: Heparin VIAL(*) 5000 UNITS/ML VIAL (FIVE THOUSAND) SUBCUT SCH ×3 (05:27→20:20)
[2018-12-31] MEDS: Insulin LISPRO* 1 UNITS UNIT SUBCUT SCH ×3 (07:31→16:54)
[2018-12-31] MEDS: Pantoprazole TAB * 40 MG TAB PO SCH (07:48)
[2018-12-31] MEDS: PARoxetine HCL TAB* 40 MG PO SCH (07:48)
[2018-12-31] MEDS: Aspirin EC TAB* 81 MG TAB.EC PO SCH (07:48)
[2018-12-31] MEDS: amLODIPine TAB* 5 MG PO SCH (07:48)
[2018-12-31] MEDS: Metoprolol Tartrate TAB* 25 MG PO SCH ×2 (11:42→20:20)
[2018-12-31] MEDS ORDERED: Regadenoson* 0.4 MG/5 ML SYRINGE ONE (12:31)
[2018-12-31] MEDS: Lisinopril TAB* 5 MG PO SCH (12:51)
[2018-12-31] MEDS: Atorvastatin* 80 MG TAB PO SCH (16:54)
[2018-12-31] MEDS ORDERED: Magnesium Sulfate 1 GM IV* 1 GM/100 ML BAG IV ONE (19:35)
--- NOTE | 2018-12-31 19:40 | PN ---
Subjective Date of Service: 12/31/18 Interval History: Patient again asks about going home at discharge. Discussed the plan is for her to be discharged to [facility] when accepted by insurance. Discussed stress test results and patient has no questions. Patient has no complaints. Denies chest pain, difficulty breathing, abd pain, nausea/vomiting, fever/chills. Family History: Unchanged from Admission Social History: Unchanged from Admission Past Medical History: Unchanged from Admission Objective Active Medications: Acetaminophen (Tylenol Tab*) 650 mg PO Q4H PRN PRN Reason: MILD PAIN or TEMP > 100.4 Amlodipine Besylate (Norvasc Tab*) 10 mg PO DAILY [facility] Last Admin: 12/31/18 07:48 Dose: 10 mg Aspirin (Aspirin Ec Tab*) 81 mg PO DAILY [facility] Last Admin: 12/31/18 07:48 Dose: 81 mg Atorvastatin Calcium (Lipitor*) 80 mg PO 1700 [facility] Last Admin: 12/31/18 16:54 Dose: 80 mg Dextrose (Dextrose 50% Vial 50 Ml*) 25 ml IV PUSH .FOR FS < 60 - SS PRN PRN Reason: FS < 60 Docusate Sodium (Colace Cap*) 100 mg PO BID PRN PRN Reason: CONSTIPATION Last Admin: 12/29/18 21:55 Dose: 100 mg Heparin Sodium (Porcine) (Heparin Vial(*)) 5,000 units SUBCUT Q8HR [facility] Last Admin: 12/31/18 12:51 Dose: 5,000 units Magnesium Sulfate/Dextrose (Magnesium Sulfate 1 Gm Iv*) 1 gm in 100 mls @ 200 mls/hr IV ONCE ONE Stop: 12/31/18 20:04 Insulin Glargine (Lantus(*)) 25 units SUBCUT BEDTIME [facility] Last Admin: 12/30/18 21:54 Dose: 25 units Insulin Human Lispro (Humalog*) 0 units SUBCUT AC [facility]; Protocol Last Admin: 12/31/18 16:54 Dose: 4 units Lisinopril (Prinivil Tab*) 2.5 mg PO DAILY [facility] Last Admin: 12/31/18 12:51 Dose: 2.5 mg Metoprolol Tartrate (Lopressor Tab*) 12.5 mg PO Q12HR [facility] Last Admin: 12/31/18 11:42 Dose: 12.5 mg Pantoprazole Sodium (Protonix Tab*) 40 mg PO DAILY [facility] Last Admin: 12/31/18 07:48 Dose: 40 mg Paroxetine HCl (Paxil Tab*) 40 mg PO DAILY [facility] Last Admin: 12/31/18 07:48 Dose: 40 mg Vital Signs - 8 hr 12/31/18 15:15 Temperature 97.3 F Pulse Rate 63 Respiratory 20 Rate Blood Pressure 145/62 (mmHg) O2 Sat by Pulse 96 Oximetry Oxygen Devices in Use Now: None Appearance: Elderly white female, laying upright in bed, appearing in NAD Eyes: No Scleral Icterus, - - PERRL Ears/Nose/Mouth/Throat: Mucous Membranes Moist Neck: NL Appearance and Movements; NL JVP Respiratory: Symmetrical Chest Expansion and Respiratory Effort, Clear to Auscultation Cardiovascular: NL Sounds; No Murmurs; No JVD, RRR Abdominal: - - abd soft, nontender, nondistended Extremities: No Edema, No Clubbing, Cyanosis Skin: No Rash or Ulcers Neurological: Alert and Oriented x 3 Result Diagrams: 12/29/18 07:18 12/29/18 07:18 Microbiology and Other Data: Microbiology 12/25/18 13:53 Urine Culture - Final Urine 12/25/18 12:42 Aerobic Blood Culture - Preliminary Blood Venous No Growth Day 1 Anaerobic Blood Culture - Preliminary No Growth Day 1 12/25/18 12:49 Aerobic Blood Culture - Preliminary Blood Venous No Growth Day 1 Anaerobic Blood Culture - Preliminary No Growth Day 1 Diagnostic Imaging: Patient Name: ROSA GE Medical Record#: [id number] Ordering Physician: Blaire Padilla NP Acct.#: [id number] : 1945 Age: 73 Sex: F Location: [address] [place] [address]/TELEMETRY Exam Date: 12/25/182038 ADM Status: ADM IN Order Information: CT CHEST/ABD/PEL W/O Accession Number: [id number] CPT: 82370 PROCEDURE INFORMATION: Exam: CT Chest Without Contrast Exam date and time: 12/25/2018 9:29 PM Clinical history: 73 years old, female; Fever; Additional info: Low grade fever , leukocytosis, elevated crp TECHNIQUE: Imaging protocol: Computed tomography of the chest without contrast. Radiation optimization: All CT scans at this facility use at least one of these dose optimization techniques: automated exposure control; mA and/or kV adjustment per patient size (includes targeted exams where dose is matched to clinical indication); or iterative reconstruction. COMPARISON: No relevant prior studies available. FINDINGS: Thyroid: No thyroid nodules. Lungs: Mild bibasilar atelectasis. No pulmonary nodules, masses, or consolidations. No bronchiectasis, peribronchial thickening, or luminal defects. Pleural space: Normal. No pneumothorax. No pleural effusion. Heart: There is mild atherosclerotic calcification of the coronary arteries. Aorta: The aorta demonstrates mild atherosclerotic calcification. 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 Lymph nodes: Normal. No enlarged lymph nodes. Bones/joints: No acute fractures. No suspicious bone lesions. Soft tissues: Left breast lumpectomy. No nodules or masses. IMPRESSION: No CT findings to correlate with patient's symptomatology. COMMENT: See concurrently obtained abdomen and pelvis CT for further details. Assess/Plan/Problems-Billing Assessment: Ms. Ge is a 73 yo F with PMH of IDDM, depression, HTN; who presented to the ED with EMS after being found on the floor by a visiting aid, noted to be hyperglycemic with lactic acidosis and dehydrated. - Patient Problems (1) Elevated troponin Current Visit: Yes Status: Acute Code(s): R79.89 - OTHER SPECIFIED ABNORMAL FINDINGS OF BLOOD CHEMISTRY SNOMED Code(s): 524989122 Comment: -elevated troponin peaked at 0.06 -with ST depressions in septal leads which have since resolved -echo without wall motion abnormalities or EF changes -patient without anginal sxs -stress test today with small area of ischemia, but determined to be low risk. Likely patient had prior silent IL but unable to determine when. Given her poorly controlled diabetes and gender, she is of high risk to have atypical IL presentation. She was already taking aspirin and metoprolol as home med, this has been continued, and I have started lisinopril for maximum medical management of CAD. (2) Lactic acidosis due to diabetes mellitus Current Visit: Yes Status: Acute Code(s): E11.10 - TYPE 2 DIABETES MELLITUS WITH KETOACIDOSIS WITHOUT COMA SNOMED Code(s): 937282243 Comment: - With Hyperglycemic Hyperosmolar State - No obvious source of infection - Trended down with aggressive fluid management and glycemic control - Now appears euvolemic (3) Hyperglycemia Current Visit: Yes Status: Acute Code(s): R73.9 - HYPERGLYCEMIA, UNSPECIFIED SNOMED Code(s): 31347499 Comment: - BG to 600s on admission - Secondary to non-compliance with insulin - A1c 11% though patient reports she only stopped insulin for a few days. 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 Infectious colitis without symptoms to correlate - CXR negative, urine negative, blood cultures negative; D/c Ceftriaxone ( patient received 5 day course) - Should have follow up CBC after discharge (6) Hypertension Current Visit: Yes Status: Chronic Code(s): I10 - ESSENTIAL (PRIMARY) HYPERTENSION SNOMED Code(s): 06182463 Comment: - Mostly normotensive with occasional hypertensive readings - Continue amlodipine, metoprolol - Started lisinopril (7) Impaired decision making Current Visit: Yes Status: Acute Code(s): Z78.9 - OTHER SPECIFIED HEALTH STATUS SNOMED Code(s): 954784350 Comment: - Per social work, patient is in poor living conditions; hoarding, animal and human feces infested home and APS is involved - Psychiatry consulted for capacity and determined that she lacks capacity to make her own medical decisions (8) Hypomagnesemia Current Visit: Yes Status: Acute Code(s): E83.42 - HYPOMAGNESEMIA SNOMED Code(s): 021924392 Comment: -replacing and will recheck tomorrow -possibly poor oral intake (9) DVT prophylaxis Current Visit: Yes Status: Resolved Priority: Medium Code(s): SDS5205 - SNOMED Code(s): 081197530 Comment: - Heparin SQ (10) Full code status Current Visit: Yes Status: Acute Code(s): Z78.9 - OTHER SPECIFIED HEALTH STATUS SNOMED Code(s): 290851077 Comment: Status and Disposition: Inpatient. She lacks capacity to make medical decisions. She has been accepted to [facility] for [facility] and anticipate d/c tomorrow
[2018-12-31] MEDS: Insulin GLARGINE(*) 1 UNITS UNIT SUBCUT SCH (22:07)
[2019-01-01] MEDS: Heparin VIAL(*) 5000 UNITS/ML VIAL (FIVE THOUSAND) SUBCUT SCH (05:44)
[2019-01-01 06:31] LABS: ABS Basophils 0.1 10^3/ul (0-0.2); ABS Eosinophils 0.4 10^3/ul (0-0.6); ABS Lymphocytes 2.6 10^3/ul (1.0-4.8); ABS Monocytes 1.1 10^3/ul (0-0.8); ABS Neutrophils 9.3 10^3/ul (1.5-7.7); Eosinophil % 2.9 %; Hematocrit 35 % (35-47); Hemoglobin 11.7 g/dL (12.0-16.0); Lymphocyte % 19.2 %; Mean Corpuscular HGB Conc 34 g/dL (31-36); Mean Corpuscular Hemoglobin 29 pg (27-31); Mean Corpuscular Volume 87 fL (80-97); Mean Platelet Volume 8.6 fL (7.4-10.4); Platelet Count 322 10^3/uL (150-450); Red Cell Distribution Width 14 % (10-15); White Blood Count 13.4 10^3/uL (3.5-10.8)
[2019-01-01 06:51] LABS: BUN/Creatinine Ratio 20.8 (8-20); Calcium 8.8 mg/dL (8.6-10.3); EGFR African American 65.2 (>60); EGFR Non-African American 53.9 (>60)
[2019-01-01] MEDS: Insulin LISPRO* 1 UNITS UNIT SUBCUT SCH (08:14)
[2019-01-01 08:16] VITALS: BP 148/59
[2019-01-01] MEDS: Aspirin EC TAB* 81 MG TAB.EC PO SCH (08:37)
[2019-01-01] MEDS: PARoxetine HCL TAB* 40 MG PO SCH (08:38)
[2019-01-01] MEDS: Pantoprazole TAB * 40 MG TAB PO SCH (08:38)
[2019-01-01] MEDS: amLODIPine TAB* 5 MG PO SCH (08:38)
[2019-01-01] MEDS: Lisinopril TAB* 5 MG PO SCH (08:39)
[2019-01-01] MEDS: Metoprolol Tartrate TAB* 25 MG PO SCH (08:40)
--- NOTE | 2019-01-01 10:44 | DS ---
DATE OF ADMISSION: DATE OF DISCHARGE: ATTENDING PHYSICIAN WHILE IN THE HOSPITAL: Dr. Franco Sequeira * (dictated by GIBRAN Morley). PRIMARY DIAGNOSES: 1. Coronary artery disease. Stress test found small area of ischemia representing likely prior silent OH. 2. Hyperglycemia. 3. Leukocytosis of unclear etiology. SECONDARY DIAGNOSES: 1. Hypertension. 2. History of breast cancer status post lumpectomy and radiation. 3. Depression. 4. 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 5. Diabetes mellitus type 2 insulin dependent. STUDIES WHILE IN THE HOSPITAL: 1. Stress test done 12/31/18 determined low risk, however there was a finding consistent with small area of ischemia in the apex and adjacent lateral wall. 2. Transthoracic echocardiogram on 12/26/18 ejection fraction of 60% to 65% without wall motion abnormality and no diastolic dysfunction. HISTORY OF PRESENT ILLNESS/HOSPITAL COURSE: Brenda Ge is a 73-year-old white female with past medical history significant for hypertension, breast cancer, depression and diabetes mellitus type 2, who presented to the Emergency Department due to weakness, found to have hyperglycemia with blood sugar 508 upon admission. Please see admitting History and Physical written by Blaire Padilla NP for further details. This is a brief summary of her hospital stay and further details should be seen in the complete medical record. The patient was found on the floor by her home health aide, and thus the patient was sent to the Emergency Department. Given the concern because the patient was found down there was the possibility of syncope and the patient is a poor historian. Echocardiogram was ordered and did not find any evidence that would explain syncope. She did not have any change in her telemetry during her hospital stay. However, she did have a small elevation in her troponin which peaked at 0.06 during her hospital stay. The patient admitted to poor adherence to her insulin at home. Given her uncontrolled diabetes which is evident by her hemoglobin A1c of 11, a stress test was ordered. 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 The patient was already on aspirin, statin and lisinopril at home. Metoprolol was started in the hospital for maximum medical therapy. She was assessed by physical therapy and found that she would benefit from skilled PT. The patient was not in agreement to subacute rehab, however her ability to make decisions for herself was in question and psychiatry was consulted for her capacity. Dr. Naylor with the Psychiatry Service determined the patient lacked capacity to make decisions for herself due to her poor insight and the plan was for her to go to subacute rehab at [facility]. The patient had referral to the [facility] Office of the Aging per Social Work. Social work determined that the patient did have an open Adult Protective Services case. The patient has unsafe living conditions according the to the [employer] aides that were in her home which did contribute to the Psychiatry consult. During her hospital stay she had persistent leukocytosis, however a source of any possible infection was not found. Her urine was negative. She had negative blood cultures. Her chest x-ray did not show any evidence for infection on admission. The source remains unclear. On the day of discharge the patient feels well. She has no anginal symptoms, chest pain, difficulty breathing, denies palpitations, denies abdominal pain, lightheadedness, dizziness, fever or chills. Initially the patient was planned to possibly be discharged on 12/28/18 and Discharge Summary was written by Kirby Salinas, however this did not happen due to insurance authorization issues and the prior Discharge Summary from this date is obsolete based on the new findings that have occurred since that time, specifically regarding the stress test. PHYSICAL EXAMINATION ON THE DAY OF DISCHARGE: General: Elderly, overweight white female lying upright in hospital bed, appearing comfortable, in no acute distress. Head: Normocephalic, atraumatic. Eyes: PERRL. Sclerae anicteric. ENT: Mucous membranes moist. Lungs: Clear to auscultation throughout. Cardio: Regular rate and rhythm without murmurs, rubs, or gallops. Abdomen: Soft, nontender, and nondistended. Extremities: No clubbing, cyanosis, or edema. No calf tenderness. Neuro: The patient was alert and oriented x3 without focal deficits. Able to move all extremities. DISCHARGE PLAN: Diet: Carbohydrate consistent diet, heart healthy diet. Activity: Patient may return to normal activity as tolerated. Patient should have repeat CBC to evaluate her leukocytosis which was persistent during her hospital stay and perhaps an outpatient evaluation should occur if this is persistent 1 week from discharge. Patient should have close monitoring of her blood glucoses and sliding scale insulin based on her carbohydrate intake with each meal should be utilized. Her previous long acting insulin has been decreased and she overall had labile control during her hospital stay. There were frequent mornings with blood glucose in the 70s to 90s on her current discharge regimen and therefore having a higher long acting insulin would not be of benefit for her at this time. She should return to Emergency Department if she is experiencing dysuria, fever, chills, chest pain, difficulty breathing, loss of consciousness. It would perhaps be of benefit for the patient to have 30 day cardiac monitoring to evaluate if there was perhaps syncopal event caused by an arrhythmia, however it is still unclear how the patient ended up on the floor, whether it was mechanical fall versus syncope. DISCHARGE MEDICATIONS: 1. Paroxetine 40 mg p.o. daily. 2. Amitriptyline 50 mg p.o. at bedtime. 3. Lisinopril 40 mg p.o. daily. 4. Insulin aspart daily 0 to 8 units subcu a.c. based on carbohydrate counting. 5. Lipitor 80 mg p.o. daily. 6. Aspirin 81 mg p.o. daily. 7. Amlodipine 10 mg p.o. daily. 8. Metoprolol tartrate 12.5 mg p.o. b.i.d. 9. Insulin glargine 25 units subcu at bedtime. 10. Tylenol 650 mg p.o. every 4 hours p.r.n. pain. CONDITION ON DISCHARGE: Stable. DISPOSITION: [facility] for subacute rehab. TIME SPENT: Approximately 40 minutes were spent on this discharge, approximately half of this time was spent at bedside evaluating the patient and discussing the plan of care. GIBRAN MORLEY [id number]/[facility] #: [id number] [place]
== END 2019-01-01 12:54 | DRG 638 ==
LOC: ED 12:04 → MEDTELE 16:25 → UNDOADMIN 16:25
PROVIDERS: ADMIT Hospitalist; ATTEND Internal Medicine
PROC: 4A02XM4 Measurement of Cardiac Total Activity, External Approach (ICD-10-PCS; principal; 2018-12-31)
DX: E11.00 Type 2 diabetes mellitus with hyperosmolarity without nonketotic hyperglycemic-hyperosmolar coma (NKHHC) (principal); E87.2 Acidosis; N17.9 Acute kidney failure, unspecified; R65.10 Systemic inflammatory response syndrome (SIRS) of non-infectious origin without acute organ dysfunction; A09 Infectious gastroenteritis and colitis, unspecified; I24.8 Other forms of acute ischemic heart disease; I10 Essential (primary) hypertension; G43.909 Migraine, unspecified, not intractable, without status migrainosus; F41.0 Panic disorder [episodic paroxysmal anxiety]; F32.9 Major depressive disorder, single episode, unspecified; E78.5 Hyperlipidemia, unspecified; E86.0 Dehydration; I05.0 Rheumatic mitral stenosis; I25.10 Atherosclerotic heart disease of native coronary artery without angina pectoris; E11.65 Type 2 diabetes mellitus with hyperglycemia; E83.42 Hypomagnesemia; Z91.14 Patient's other noncompliance with medication regimen; Z85.3 Personal history of malignant neoplasm of breast; Z92.3 Personal history of irradiation; Z88.1 Allergy status to other antibiotic agents; Z86.73 Personal history of transient ischemic attack (TIA), and cerebral infarction without residual deficits; Z87.74 Personal history of (corrected) congenital malformations of heart and circulatory system; Z79.4 Long term (current) use of insulin; Z79.82 Long term (current) use of aspirin
CPT/HCPCS: 36415; 71045; 71250; 74176; 78452; 80048; 80053; 80061; 80307; 80320; 80329; 81003; 81015; 82140; 82550; 82803; 82947; 83036; 83605; 83735; 83880; 84443; 84484; 85025; 85610; 86140; 87040; 87086; 90686; 93005; 93017; 93306; 99284; A9270-GY; A9502; G0480; G8978-GP-CJ; G8979-GP-CI; J0696; J1644; J2785; J3475; J3480

== ENCOUNTER 2019-01-27 16:46 | Emergency (ER) | payer MEDICARE ==
[2019-01-27] MEDS ORDERED: NS 0.9% 1000 ML** 1,000 ML IV ONE (16:54)
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
[2019-01-27 18:06] LABS: Hematocrit 43 % (35-47); Hemoglobin 13.6 g/dL (12.0-16.0); Mean Corpuscular HGB Conc 32 g/dL (31-36); Mean Corpuscular Hemoglobin 29 pg (27-31); Mean Corpuscular Volume 89 fL (80-97); Mean Platelet Volume 8.7 fL (7.4-10.4); Platelet Count 307 10^3/uL (150-450); Red Blood Count 4.76 10^6 /uL (3.70-4.87); Red Cell Distribution Width 14 % (10-15); White Blood Count 24.7 10^3/uL (3.5-10.8)
--- OUTSIDE RECORDS SUMMARY | 2019-01-27 18:06 | XMS REPORT | Continuity of Care Document ---
:1945 External Reference #:[id number] Author Name Julio Mart MD, 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 Sera Rob [...] u, Transfer Shower Chair use as directed 1units Ruby Trinh, 05/17/2016 dx: g11.1 M.D. Lisinopril once a day 90tabs I10 Ruby Trinh, 11/05/2015 40mg Tablets M.D. BD Pen [place] for use with 200units Ruby Trinh, 10/20/2015 Short/Ultrafine/31G X lantus and M.D. 5/16" humalog pens 31G X 8 mm Misc daily Freestyle Lite Test check blood 100units E11.65 Ruby Trinh, 12/22/2014 sugar 4 times M.D. Strips [...] dx e11.65 Paxil 2 pills daily 60tabs Ruby Trinh, 20mg Tablets M.D. Amitriptyline HCL 1 by mouth every 90tabs Ruby Trinh, 50mg night at bedtime M.D. Tablets History Medications Amlodipine Besylate once a day 90tabs I10 Ruby Trinh, 10/01/2018 - M.D. 10/11/2018 5mg Tablets Basaglar Kwikpen inject 40 units 30units Ruby Trinh, 08/27/2018 - under the skin M.D. 09/11/2018 100Unit/ML Solution daily Pen-Inject Immunizations CPT Code Status Date Vaccine Lot # [id number] Given 11/30/2016 Influenza Virus Vaccine, Quadrivalent, Split, [id number] Preservative Free [id number] Given 12/07/2015 Tdap - Tetanus/Diptheria/Acellular Pertussis [id number] Given 12/07/2015 Pneumococcal Conjugate Vaccine 13 Valent For [id number] Intramuscular Use [id number] Given 11/06/2014 Pneumonia Vaccine [id number] Refused 12/07/2015 Influenza Virus Vaccine, Quadrivalent, Split, [...] Date Facility Test Result H/L Range Note Laboratory test [facility] Point of Care > 444 Critical 70-100 1 finding [address] Glucose mg/[place] [address] [phone] [facility] Magnesium 1.5 mg/dL Low 1.9-2.7 [address] [place] [address] [phone] Creatine Kinase(CK) 39 U/L Normal 10-223 3 Troponin-I (TnI) 0.04 ng/mL Critical high <0.04 4 Acetaminophen < 15 g/mL 5 Alcohol < 10 mg/dL Normal <10 6 Salicylate < 2.50 mg/dL <30 7 TSH (Thyroid Stim Horm) 0.76 mcIU/mL Normal 0.34-5.60 8 B-Type Natriuretic Peptide BNP 191 pg/mL High <=100 Comp Metabolic Panel 12/25/2018 [facility] Sodium 132 mmol/L Low 135-[address] [place] [address] [phone] Potassium 3.7 mmol/L Normal 3.5-5.0 Chloride 92 mmol/L Low 101-111 Co2 Carbon Dioxide 27 mmol/L Normal 22-32 Anion Gap 13 mmol/L High 2-11 Blood Urea Nitrogen 25 mg/dL High 6-24 Creatinine 1.81 mg/dL High 0.51-0.95 BUN/Creatinine Ratio 13.8 Normal 8-20 Calcium 8.7 mg/dL Normal 8.6-10.3 Total Protein 6.9 g/dL Normal 6.4-8.9 Albumin 3.8 g/dL Normal 3.2-5.2 Globulin 3.1 g/dL Normal 2-4 Albumin/Globulin Ratio 1.2 Normal 1-3 Total Bilirubin 0.50 mg/dL Normal 0.2-1.0 Alkaline Phosphatase 117 U/L High 34-104 Alt 10 U/L Normal 7-52 Ast 9 U/L Low 13-39 Egfr Non- 27.5 >60 Egfr 33.3 >60 9 Glucose 644 mg/dL Critical high 70-100 Urine Drug 12/25/2018 [facility] Urine None Detected None Detect SCR ED & [address] Amp[place] [address] Screen [phone] Urine Barbiturates Screen None Detected None Detect Urine Benzodiazepine Screen None Detected None Detect Urine Cannabinoids Screen None Detected None Detect Urine Cocaine Screen None Detected None Detect Urine Opiates Screen None Detected None Detect Urine Phencyclidine Screen None Detected None Detect 10 Urinalysis Profile 12/25/2018 [facility] Urine Color Yellow [address] [place] [address] [phone] Urine Appearance Cloudy Urine Specific [place] 1.024 Normal 1.010-1.030 Urine pH 5.0 Normal 5-9 Urine Urobilinogen Negative Negative Urine Ketones Negative Negative Urine Protein Negative Negative Urine Leukocytes Negative Negative Urine Blood 1+ Abnormal Negative Urine Nitrite Negative Negative Urine Bilirubin Negative Negative Urine Glucose 3+(>=500 mg/dL) Abnormal Negative Urine White Blood Cell Trace(0-5/hpf) Absent Urine Red Blood Cell Trace(0-2/hpf) Absent Urine Bacteria Absent Absent Urine Squamous Epithelial Cell Present Abnormal Absent CBC Auto 12/25/2018 [facility] White Blood 26.8 10^3/uL High 3.5-10.[address] [place] [address] [phone] Red Blood Count 4.52 10^6/uL Normal 3.70-4.87 Hemoglobin 13.1 g/dL Normal 12.0-16.0 Hematocrit 40 % Normal 35-47 Mean Corpuscular Volume 88 fL Normal 80-97 Mean Corpuscular Hemoglobin 29 pg Normal 27-31 Mean Corpuscular HGB Conc 33 g/dL Normal 31-36 Red Cell Distribution Width 14 % Normal 10-15 Platelet Count 286 10^3/uL Normal 150-450 Mean Platelet Volume 9.1 fL Normal 7.4-10.4 Abs Neutrophils 23.6 10^3/uL High 1.5-7.7 Abs Lymphocytes 1.4 10^3/uL Normal 1.0-4.8 Abs Monocytes 1.6 10^3/uL High 0-0.8 Abs Eosinophils 0.0 10^3/uL Normal 0-0.6 Abs Basophils 0.1 10^3/uL Normal 0-0.2 Abs Nucleated RBC 0.0 10^3/uL Granulocyte % 88.2 % Lymphocyte % 5.4 % Monocyte % 6.0 % Eosinophil % 0.1 % Basophil % 0.3 % Nucleated Red Blood Cells % 0.0 Laboratory 12/25/2018 [facility] Lactic Acid 3.0 Critical 0.5- 2.0 11 test finding [address] mmol/[place] [address] [phone] Inr/Protime 12/25/2018 [facility] Inr 0.97 Normal 0.82-1.[address] [place] [address] [phone] Arterial 12/25/2018 [facility] PH Arterial 7.46 High 7.35- 7.45 Blood Gas [address] [place] [address] [phone] Pco2 Arterial 37 mmHg Normal 35-45 Po2 Arterial 73 mmHg Low 80-100 O2 Saturation Arterial 96.3 % Normal 94.0-98.0 Base Excess Arterial 2.5 mmol/L High -2.0-2.0 13 Hco3 Arterial 26.8 mmol/L Normal 19-31 Laboratory 12/25/2018 [facility] Ammonia 30 Normal 16-53 test finding [address] mcmol/[place] [address] [phone] Laboratory 12/25/2018 [facility] Point of Care > 444 Critical 70-100 [address] Glucose mg/[place] [address] [phone] Laboratory 12/25/2018 [facility] Glucose 508 mg/dL Critical 70 -100 15 test finding [address] [place] [address] [phone] Troponin-I (TnI) 0.04 ng/mL Critical high <0.04 16 Laboratory test 12/25/2018 [facility] Lactic Acid 2.6 Critical 0.5-2.0 [address] mmol/L high [place], [place] [address] [phone] Urine 10/01/2018 [facility] Ur 24.[address] Microalbumin mg/[place] [address] (mg/L) [phone] Urine Creatinine 94.44 mg/dL Urine Microalbumin/Creatinine 26.0 Normal <31 Lipid Profile 10/01/2018 [facility] Triglycerides 76 mg/dL 18 (Trig/Chol/HDL) [address] [place], [place] [id number] [phone] Cholesterol 182 mg/dL 19 HDL Cholesterol 64.5 mg/dL 20 LDL Cholesterol 102 mg/dL 21 Comp Metabolic 10/01/2018 [facility] Sodium 142 mmol/L Normal 135-[address] [place] [address] [phone] Potassium 4.3 mmol/L Normal 3.5-5.0 Chloride 103 [...] Egfr Non- 67.6 >60 Egfr 81.8 >60 22 CBC Auto 10/01/2018 [facility] White Blood 12.0 10^3/uL High 3.5-10.[address] [place] [address] [phone] Red Blood Count 4.53 10^6/uL Normal 3.70-4.87 [...] Cells % 0.2 Laboratory test finding 09/11/2018 [employer] [facility] Hemoglobin A1c 8.7 High 5 -7 1 Signals Intelligence Analysis Manager: [id number] Critical Result [id number] Called to [id number] at: 12:48:05 by:[id number] Read back by:[id number] Critical Result GLU:[id number] Called to [id number] at: 12:48:05 by:[id number] Read back by:[id number] 4 Result TnIDx:0.04 Called to [id number] at: 12:48:05 by:[id number] Read back by: [id number] Troponin-I testing on Plasma Separator Tubes (PST) has a known false positive rate of 0.20-0.40%. All positive troponins reflex immediately to secondary confirmatory testing. Using the [employer] DxI 800 Access Immunoassay systems, the 99th percentile upper reference limit was demonstrated to be < 0.03 ng/mL. 5 Therapeutic concentration: <50 ug/mL Toxic concentration: >120 ug/mL 6 Critical Result [id number] Called to [id number] at: 12:48:05 by:[id number] Read back by:[id number] 7 Critical Result GLU:644 Called to [id number] at: 12:48:05 by:[id number] Read back by:[id number] 8 Critical Result GLU:644 Called to [id number] at: 12:48:05 by:[id number] Read back by:[id number] 9 Because ethnic data is not always readily [...] 15-29 5 Kidney failure <15 (or dialysis) 10 The urine specimen was tested at the listed cutoffs: Drug class test level (ng/mL) Amphetamines 500 Barbiturates 200 Benzodiazepine metabolites 200 Cocaine metabolites 150 Cannabinoids 50 Opiates 300 Pcp 25 Specimen was received without chain of custody. Results should be used for medical purposes only. 11 Critical Result LACT:3.0 Called to [id number] at: 12:49:46 by:[id number] Read back by:[id number] [place] Severe Sepsis and Septic Shock Management Bundle Measure requires all lactic acids initially measuring >2.0 mmol/L be repeated. 12 Standard intensity warfarin therapeutic range: 2.0-3.0 High intensity warfarin therapeutic range: 2.5-3.5 13 Reference ranges based on room air. 14 Signals Intelligence Analysis Manager: [id number] 15 Critical Result GLU:508 Called to [id number] at: 15:37:22 by:[id number] Read back by:[id number] 16 Result TnIDx:0.04 Called to [id number] at: 16:05:02 by:[id number] Read back by: [id number] Troponin-I testing on Plasma Separator Tubes (PST) has a known false positive rate of 0.20-0.40%. All positive troponins reflex immediately to secondary confirmatory testing. Using the VicinoI 800 Access Immunoassay systems, the 99th percentile upper reference limit was demonstrated to be < 0.03 ng/mL. 17 Critical Result LACT:2.6 Called to [id number] at: 16:41:17 by:[id number] Read back by:[id number] [place] Severe Sepsis and Septic Shock Management Bundle Measure requires all lactic acids initially measuring >2.0 mmol/L be repeated. 18 Desirable: <150 Borderline High: 150-199 High: 200-499 Very High: >500 19 Desirable: <200 Borderline High: 200-239 High: >239 20 Low: <40 Desirable: 40-60 High: >60 21 Desirable: <100 Near Optimal: 100-129 Borderline High: 130-159 High: 160-189 Very High: >189 22 Because ethnic data is not always readily [...] dialysis) Procedures Date Code Description Status 04/19/2016 [id number] Diabetic Retinal Eye Exam Completed 12/01/2015 [id number] Mammogram Completed 11/27/2014 [id number] Mammogram Completed Medical Devices Description No Information Available Encounters Type Date Location Provider Dx Diagnosis Office Visit 10/11/2018 [facility] Maurice Laura Essential ( primary) 1:00p Medicine - Jannette Beckman hypertension Z85.3 Personal history of malignant neoplasm of breast Office Visit 10/01/2018 1:20p [facility] Juju Laura0 Essential (primary) Medicine Lyndsey Bhatia M.D. hypertension E11.65 Type 2 diabetes mellitus with hyperglycemia Office Visit 09/11/2018 1:00p [facility] Ruby E11.65 Type 2 diabetes Cuco Trinh M.D. mellitus with Ccmob hyperglycemia I10 Essential (primary) [...] sent for youFollow up:10 days with a [id number] Personal history of malignant neoplasm of breastNew Xrays:[facility] Diagnostic Mammo Bilateral, Ordered: Functional Status Description No Information Available Mental Status Description No Information Available Referrals Description No Information Available
--- OUTSIDE RECORDS SUMMARY | 2019-01-27 18:06 | XMS REPORT | Continuity of Care Document ---
:1945 External Reference #:[id number] Author Name Abdi Slater M.D. 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 10mg Tablets Atorvastatin Calcium [...] Shower Chair use as directed 1units Ruby Andersenan, 05/17/2016 dx: g11.1 M.D. Lisinopril once a day 90tabs I10 Ruby Trinh, 11/05/2015 40mg Tablets M.D. BD Pen Jud for use with 200units Ruby Trinh, 10/20/2015 [...] Freestyle Insulinx check blood 100units E11.65 Ruby Ziggy, 12/19/2014 Blood Glucose Test sugar 4 times [...] dx e11.65 Paxil 2 pills daily 60tabs Rubyenrico Trinh, 20mg Tablets M.D. Amitriptyline HCL 1 by mouth every 90tabs Ruby Trinh, 50mg night at bedtime M.D. Tablets History Medications Amlodipine Besylate once a day 90tabs I10 Ruby Trinh, 10/01/2018 - M.D. 10/11/2018 5mg Tablets Basaglar Kwikpen inject 40 units 30units Ruby Andersenan, 08/27/2018 - under the skin M.D. 09/11/2018 100Unit/ML Solution daily Pen-Inject Immunizations CPT Code Status Date Vaccine Lot # [id number] Given 11/30/2016 Influenza Virus Vaccine, Quadrivalent, Split, [id number] Preservative Free [id number] Given 12/07/2015 Tdap - Tetanus/Diptheria/Acellular Pertussis [id number] Given 12/07/2015 Pneumococcal Conjugate Vaccine 13 Valent For [id number] Intramuscular Use [id number] Given 11/06/2014 Pneumonia Vaccine [id number] Refused 12/07/2015 Influenza Virus Vaccine, Quadrivalent, Split, [...] Test Result H/L Range Note Laboratory test 12/26/19 [facility] Point of Care > 444 Critical 70-100 1 finding [address] Glucose mg/[place] [address] [phone] Urine Culture And 12/26/19 [facility] Urine Culture SEE RESULT 2 Sensitivities [address] [place] [address] [phone] Laboratory test 12/26/19 [facility] Magnesium 1.5 mg/dL Low 1.9-2.7 3 finding [address] [place] [address] [phone] Creatine Kinase(CK) 39 U/L Normal 10-223 4 Troponin-I (TnI) 0.04 ng/mL Critical high <0.04 5 Acetaminophen < 15 g/mL 6 Alcohol < 10 mg/dL Normal <10 7 Salicylate < 2.50 mg/dL <30 8 TSH (Thyroid Stim Horm) 0.76 mcIU/mL Normal 0.34-5.60 9 B-Type Natriuretic Peptide BNP 191 pg/mL High <=100 Blood Culture SEE RESULT BELOW 10 Comp Metabolic Panel 12/25/2018 [facility] Sodium 132 mmol/L Low 135-[address] [place] [address] [phone] Potassium 3.7 mmol/L Normal 3.5-5.0 Chloride 92 [...] Egfr Non- 27.5 >60 Egfr 33.3 >60 11 Glucose 644 mg/dL Critical high 70-100 Urine Drug 12/25/2018 [facility] Urine None Detected None Detect SCR ED & [address] [place] [address] Screen [phone] Urine Barbiturates Screen None Detected None Detect Urine Benzodiazepine Screen None Detected None Detect Urine Cannabinoids Screen None Detected None Detect Urine Cocaine Screen None Detected None Detect Urine Opiates Screen None Detected None Detect Urine Phencyclidine Screen None Detected None Detect 12 Urinalysis Profile 12/25/2018 [facility] Urine Color Yellow [address] [place] [address] [phone] Urine Appearance Cloudy Urine Specific [place] 1.024 Normal 1.010-1.030 Urine pH 5.0 Normal [...] Cell Present Abnormal Absent CBC Auto 12/25/2018 [facility] White Blood 26.8 10^3/uL High 3.5-10.[address] [place] [address] [phone] Red Blood Count 4.52 10^6/uL Normal 3.70-4.87 [...] Red Blood Cells % 0.0 Laboratory 12/25/2018 [facility] Lactic Acid 3.0 Critical 0.5- 2.0 13 test finding [address] mmol/[place] [address] [phone] Inr/Protime 12/25/2018 [facility] Inr 0.97 Normal 0.82-1.[address] [place], [place] [address] [phone] Arterial 12/25/2018 [facility] PH Arterial 7.46 High 7.35- 7.45 Blood Gas [address] [place] [address] [phone] Pco2 Arterial 37 mmHg Normal 35-45 Po2 Arterial 73 mmHg Low 80-100 O2 Saturation Arterial 96.3 % Normal 94.0-98.0 Base Excess Arterial 2.5 mmol/L High -2.0-2.0 15 Hco3 Arterial 26.8 mmol/L Normal 19-31 Laboratory 12/25/2018 [facility] Ammonia 30 Normal 16-53 test finding [address] mcmol/[place] [address] [phone] Laboratory 12/25/2018 [facility] Point of Care > 444 Critical 70-100 16 test finding [address] Glucose mg/[place] [address] [phone] Laboratory 12/25/2018 [facility] Glucose 508 mg/dL Critical 70 -100 17 test finding [address] [place] [address] [phone] Troponin-I (TnI) 0.04 ng/mL Critical high <0.04 18 Laboratory test 12/25/2018 [facility] Lactic Acid 2.6 Critical 0.5-2.0 [address] mmol/L high [place], [place] [address] [phone] Urine 10/01/2018 [facility] Ur 24.[address] Microalbumin mg/[place] [address] (mg/L) [phone] Urine Creatinine 94.44 mg/dL Urine Microalbumin/Creatinine 26.0 Normal <31 Lipid Profile 10/01/2018 [facility] Triglycerides 76 mg/dL 20 (Trig/Chol/HDL) [address] [place] [address] [phone] Cholesterol 182 mg/dL 21 HDL Cholesterol 64.5 mg/dL 22 LDL Cholesterol 102 mg/dL 23 Comp Metabolic 10/01/2018 [facility] Sodium 142 mmol/L Normal 135-[address] [place] [address] [phone] Potassium 4.3 mmol/L Normal 3.5-5.0 Chloride 103 [...] Egfr Non- 67.6 >60 Egfr 81.8 >60 24 CBC Auto 10/01/2018 [facility] White Blood 12.0 10^3/uL High 3.5-10.[address] [place] [address] [phone] Red Blood Count 4.53 10^6/uL Normal 3.70-4.87 [...] Cells % 0.2 Laboratory test finding 09/11/2018 [facility] In House Hemoglobin A1c 8.7 High 5 -7 1 Data Sciences Director: [id number] 2 SEE RESULT BELOW Name: ROSA GE : [address]: Marbella Barahona MD Acct: [id number] Unit: [id number] AGE: 73 Location: [place] [address] Re12/25/18 SEX: F Status: ADM IN SPEC: [id number] MAURO: 12/25/18 [facility] [address]: Juan Shields MD REQ: [id number] RECD: 12/25/18 STATUS: CHEO BOOTHE DR: Ruby Trinh MD _ SOURCE: URINE SPDESC: ORDERED: Urine Culture Procedure Result Reported Site Urine Culture Final 12/26/18- 1620 ML Few Enterobacteriacae; possible contamination. * ML - Main Lab . END OF REPORT DEPARTMENT OF PATHOLOGY, [address] [place] [address] Eugene Britton M.D. Director [facility] # [id number] 3 Critical Result [id number] Called to [id number] at: 12:48:05 by:[id number] Read back by:[id number] 4 Critical Result GLU:644 Called to [id number] at: 12:48:05 by:[id number] Read back by:[id number] 5 Result TnIDx:0.04 Called to [id number] at: 12:48:05 by:[id number] Read back by: [id number] Troponin-I testing on Plasma Separator Tubes (PST) has a known false positive rate of 0.20-0.40%. All positive troponins reflex immediately to secondary confirmatory testing. Using the Ipsum DxI 800 Access Immunoassay systems, the 99th percentile upper reference limit was demonstrated to be < 0.03 ng/mL. 6 Therapeutic concentration: <50 ug/mL Toxic concentration: >120 ug/mL 7 Critical Result GLU:644 Called to [id number] at: 12:48:05 by:[id number] Read back by:[id number] 8 Critical Result GLU:644 Called to [id number] at: 12:48:05 by:[id number] Read back by:[id number] 9 Critical Result GLU:644 Called to [id number] at: 12:48:05 by:[id number] Read back by:[id number] 10 SEE RESULT BELOW Name: ROSA GE DOB: [address]: Marbella Barahona MD Acct: [id number] Unit: [id number] AGE: 73 Location: [place] [address] Re12/25/18 SEX: F Status: ADM IN SPEC: [id number] MAURO: 12/25/[address]: Juan Shields MD REQ: [id number] RECD: 12/25/18 STATUS: COMP EARNESTINEHR DR: Ruby Trinh MD _ SOURCE: BLOOD,VENO SPDESC: ORDERED: Blood Cult Procedure Result Reported Site Aerobic Culture Bottle Final 12/30/18- 1254 ML No Growth Day 5 Anaerobic Culture Bottle Final 12/30/18- 1254 ML No Growth Day 5 * ML - Main Lab . END OF REPORT DEPARTMENT OF PATHOLOGY, [address] [place] [address] Eugene Britton M.D. Director [facility] # [id number] 11 Because ethnic data is not always readily [...] 15-29 5 Kidney failure <15 (or dialysis) 12 The urine specimen was tested at the listed cutoffs: Drug class test level (ng/mL) Amphetamines 500 Barbiturates 200 Benzodiazepine metabolites 200 Cocaine metabolites 150 Cannabinoids 50 Opiates 300 Pcp 25 Specimen was received without chain of custody. Results should be used for medical purposes only. 13 Critical Result LACT:3.0 Called to [id number] at: 12:49:46 by:[id number] Read back by:[id number] [facility] Severe Sepsis and Septic Shock Management Bundle Measure requires all lactic acids initially measuring >2.0 mmol/L be repeated. 14 Standard intensity warfarin therapeutic range: 2.0-3.0 High intensity warfarin therapeutic range: 2.5-3.5 15 Reference ranges based on room air. 16 Data Sciences Director: [id number] 17 Critical Result GLU:508 Called to [id number] at: 15:37:22 by:[id number] Read back by:[id number] 18 Result TnIDx:0.04 Called to [id number] at: 16:05:02 by:[id number] Read back by: [id number] Troponin-I testing on Plasma Separator Tubes (PST) has a known false positive rate of 0.20-0.40%. All positive troponins reflex immediately to secondary confirmatory testing. Using the Ipsum DxI 800 Access Immunoassay systems, the 99th percentile upper reference limit was demonstrated to be < 0.03 ng/mL. 19 Critical Result LACT:2.6 Called to [id number] at: 16:41:17 by:[id number] Read back by:[id number] [place] Severe Sepsis and Septic Shock Management Bundle Measure requires all lactic acids initially measuring >2.0 mmol/L be repeated. 20 Desirable: <150 Borderline High: 150-199 High: 200-499 Very High: >500 21 Desirable: <200 Borderline High: 200-239 High: >239 22 Low: <40 Desirable: 40-60 High: >60 23 Desirable: <100 Near Optimal: 100-129 Borderline High: 130-159 High: 160-189 Very High: >189 24 Because ethnic data is not always readily [...] dialysis) Procedures Date Code Description Status 04/19/2016 [id number] Diabetic Retinal Eye Exam Completed 12/01/2015 [id number] Mammogram Completed 11/27/2014 [id number] Mammogram Completed Medical Devices Description No Information Available Encounters Type Date Location Provider Dx Diagnosis Office Visit 10/11/2018 [facility] Internal Rubystephanei Trinh, I10 Essential ( primary) 1:00p Medicine - Jannette Beckman hypertension Z85.3 Personal history of malignant neoplasm of breast Office Visit 10/01/2018 1:20p [facility] Internal Ruby Trinh, I10 Essential (primary) Medicine - Ccmob M.DBobbi hypertension E11.65 Type 2 diabetes mellitus with hyperglycemia Office Visit 09/11/2018 1:00p [facility] Internal Ruby E11.65 Type 2 diabetes Medicine [...] sent for youFollow up:10 days with a ahbwsR47.3 Personal history of malignant neoplasm of breastNew Xrays:[facility] Diagnostic Mammo Bilateral, Ordered: Functional Status Description No Information Available Mental Status Description No Information Available Referrals Description No Information Available
[2019-01-27 18:26] LABS: ABS Monocytes 1.3 10^3/ul (0-0.8); ABS Neutrophils 22.4 10^3/ul (1.5-7.7); Lymphocyte % 4.1 %; Troponin I 0.04 ng/mL (<0.04)
[2019-01-27] MEDS ORDERED: Aspirin 81 mg CHEW TAB* 81 MG TAB.CHEW PO ONE (18:55)
[2019-01-27 18:56] LABS: Urine Bacteria Absent (Absent); Urine Red Blood Cell Absent (Absent); Urine White Blood Cell Absent (Absent)
[2019-01-27 18:58] LABS: Urine Appearance Clear; Urine Bilirubin Negative (Negative); Urine Blood Negative (Negative); Urine Color Yellow; Urine Glucose 3+(>=500 mg/dL) (Negative); Urine Ketones 1+ (Negative); Urine Nitrite Negative (Negative); Urine Protein 1+(30 mg/dL) (Negative); Urine Urobilinogen Negative (Negative)
[2019-01-27 18:59] LABS: Albumin 3.8 g/dL (3.2-5.2); Albumin/Globulin Ratio 1.1 (1-3); BUN/Creatinine Ratio 20.5 (8-20); Calcium 9.1 mg/dL (8.6-10.3); EGFR African American 76.4 (>60); EGFR Non-African American 63.2 (>60); Globulin 3.6 g/dL (2-4); Magnesium 1.5 mg/dL (1.9-2.7); Potassium 4.1 mmol/L (3.5-5.0); Total Bilirubin 0.6 mg/dL (0.2-1.0); Total Protein 7.4 g/dL (6.4-8.9)
--- NOTE | 2019-01-27 19:09 | ED ---
Progress - Progress Note Progress Note: This pt is a sign out from Dr. Shields to Dr. Mike at shift change 1900 pending blood test results, UA results, and disposition. Re-Evaluation - Re-Evaluation First Eval Re-Evaluation Time: 18:47 Change: Unchanged Comment: BG fingerstick at this time is 382. Second Eval Re-Evaluation Time: 22:13 Change: Improved Comment: I have discussed results with the patient and generalized weakness and fever is resolved. Discussed symptoms that warrant immediate return to ED. Third Eval Re-Evaluation Time: 22:39 Change: Unchanged Comment: She states that she was discharged from here on 01/01/19 and had an elevated WBC with no source iof 22.6. She was then present in rehab for 2 weeks prior to being sent home. She states that she ran out of needles to provide lantis at night and has been unable to check her BS. Marina Mccullough, rn social services , will help the pt gather materials to use for her Lantis. I have discussed results with the patient and hyperglycemia is resolved. Discussed symptoms that warrant immediate return to ED Course/Dx - Course Course Of Treatment: This pt is a sign out from Dr. Shields to Dr. Mike at shift change 1900 01/27/19 pending blood test results, UA results, and disposition. ASA 324 mgs. 25 units subcut lantis. 8 units subcut insulin regular. 25 mg Metoprolol Tartrate. Sodium chloride - Diagnoses Provider Diagnoses: Uncontrolled diabetes mellitus with hyperglycemia Discharge ED - Sign-Out/Discharge Documenting (check all that apply): Patient Departure - discharge - Discharge Plan Condition: Stable Disposition: ADMITTED TO [facility] Patient Education Materials: Diabetic Hyperglycemia (ED) Referrals: Ruby Trinh MD [Primary Care Provider] - 2 Days Marina Mccullough RN [It Architecture Consultant] - (Marina Mccullough will call you tomorrow to help gather materials to monitor your blood sugar. ) Additional Instructions: PLEASE FOLLOW UP WITH YOUR PRIMARY CARE PROVIDER IN 2-3 DAYS AND RETURN TO THE EMERGENCY DEPARTMENT FOR ANY NEW OR WORSENING SYMPTOMS. PLEASE TALK TO MARINA MCCULLOUGH TOMORROW. - Billing Disposition and Condition Condition: STABLE Disposition: Admitted to [facility] - Attestation Statements Document Initiated by Scribe: Yes Documenting Scribe: Ochoa Grider Provider For Whom Scribe is Documenting (Include Credential): Ingris Mike MD Scribe Attestation: I, Ochoa Grider, scribed for Ingris Mike MD on 01/27/19 at 2320. Scribe Documentation Reviewed: Yes Provider Attestation: The documentation as recorded by the scribeOchoa accurately reflects the service I personally performed and the decisions made by me, Ingris Mike MD Status of Scribe Document: Viewed Procedures - Sedation Patient Received Moderate/Deep Sedation with Procedure: No
[2019-01-27 19:39] LABS: TSH (Thyroid Stimulating Horm) 0.38 mcIU/mL (0.34-5.60)
[2019-01-27] MEDS ORDERED: Metoprolol Tartrate TAB* 25 MG PO ONE (19:39)
[2019-01-27] MEDS ORDERED: Insulin REGULAR(*) 1 UNITS UNIT SUBCUT ONE (19:52)
[2019-01-27 21:41] LABS: BUN/Creatinine Ratio 20.7 (8-20); EGFR African American 82.9 (>60); EGFR Non-African American 68.5 (>60); Potassium 3.7 mmol/L (3.5-5.0)
[2019-01-27 21:46] LABS: Troponin I 0.03 ng/mL (<0.04)
[2019-01-27] MEDS ORDERED: Insulin GLARGINE(*) 1 UNITS UNIT SUBCUT ONE (22:41)
[2019-01-27 22:58] VITALS: BP 139/99
== END 2019-01-27 22:50 | disposition short-term general hospital (02) ==
LOC: ED 16:46
DX: E11.65 Type 2 diabetes mellitus with hyperglycemia (principal); R07.9 Chest pain, unspecified; Z79.4 Long term (current) use of insulin; Z85.3 Personal history of malignant neoplasm of breast; R94.31 Abnormal electrocardiogram [ECG] [EKG]
CPT/HCPCS: 36415; 71045; 80048; 80053; 81003; 81015; 82550; 82553; 83605; 83735; 83880; 84443; 84484; 85025; 93005; 96360; 99283; A9270-GY

== ENCOUNTER 2019-01-31 15:25 | Inpatient (IN) | payer MEDICARE ==
[2019-01-31] MEDS ORDERED: NS 0.9% 1000 ML** 1,000 ML IV ONE (16:23)
--- NOTE | 2019-01-31 16:44 | ED ---
HPI Chest Pain - HPI Summary HPI Summary: Patient is a 73 y/o F presenting to the ED via EMS for a chief complaint of intermittent midsternal chest pain that began on 01/26/19 while at rest. Patient s PCP called the police after the patient missed her appointment on 01/31/19. The chest pain is described as lasting for about one day before resolving. She currently denies chest pain. She admits cough, and generalized weakness and fatigue for the last 3 years that she attributes to an undiagnosed stroke. Patient denies any fever, chills, diaphoresis, erythema of eyes, sore throat, SOB, abdominal pain, N/V, changes in bowel movements, dysuria, hematuria, myalgia, edema, rash, lightheadedness, or dizziness. She denies any aggravating or alleviating factors. She was seen at [facility] for the chest pain on 01/27/19 and discharged home. She notes possible thyroid problems because she discussed a thyroid biopsy with another provider. Patient lives alone. - History of Current Complaint Chief Complaint: EDGeneral Time Seen by Provider: 01/31/19 15:44 Hx Obtained From: Patient Onset/Duration: Atraumatic, Resolved Timing: Intermittent, Lasting Days Initial Severity: Mild Current Severity: Mild Pain Intensity: 2 Pain Scale Used: 0-10 Numeric Chest Pain Location: Mid Sternal Chest Pain Radiates: No Aggravating Factor(s): Nothing Alleviating Factor(s): Nothing Associated Signs and Symptoms: Positive: Chest Pain - Midsternal, Weakness - Generalized, Cough. Negative: Shortness of Breath, Swelling, Fever, Chills, Lightheadedness, Nausea, Abdominal Pain, Vomiting, Edema - Additional Pertinent History Primary Care Physician: [id number] - Allergy/Home Medications Allergies/Adverse Reactions: Allergies Allergy/AdvReac Type Severity Reaction Status Date / Time ciprofloxacin Allergy Rash And Verified 01/27/19 17:20 Itching Home Medications: Home Medications amLODIPine TAB* [Norvasc 5 mg TAB*] 10 mg PO DAILY 01/31/19 [History Confirmed 01/31/19] PMH/Surg Hx/FS Hx/Imm Hx Previously Healthy: Yes Endocrine/Hematology History: Reports: Hx Diabetes - IDDM Denies: Hx Anemia Cardiovascular History: Reports: Hx 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 14, Hx Hypertension Denies: Hx Pacemaker/ICD, Other Cardiovascular Problems/Disorders - Open heart surgery in 1960s, FOR CONGENITAL HEART DISEASE GI History: Denies: Hx Jaundice History: Denies: Hx Renal Disease Sensory History: Reports: Hx Contacts or Glasses Denies: Hx Legally Blind, Hx Deafness, Hx Hearing Aid Opthamlomology History: Reports: Hx Contacts or Glasses Denies: Hx Legally Blind EENT History: Denies: Hx Deafness Neurological History: Reports: Hx Headaches, Hx Migraine Denies: Other Neuro Impairments/Disorders Psychiatric History: Reports: Hx Anxiety, Hx Depression, Hx Panic Disorder Denies: Hx Attention Deficit Hyperactivity Disorder, Hx Eating Disorder, Hx Post Traumatic Stress Disorder, Hx Inpatient Treatment, Hx Community Mental Health Tx, Hx Schizophrenia, Hx Bipolar Disorder, Hx Suicide Attempt, Hx of Violent Episodes Against Others, Hx Substance Abuse, Other Psychiatric Issues/ Disorders - Cancer History Cancer Type, Location and Year: L breast cancer Hx Radiation Therapy: Yes - Surgical History Surgical History: Yes Surgery Procedure, Year, and Place: OPEN HEART AT AGE 14 FOR CONGENTIAL HEART ( ONLY STERNAL CLOSURES ON CHEST XRAY - OKAY TO MRI SCAN PER DR. QUINTERO 09/24/2015 ) ;. BREAST CANCER SURGERY ; - Immunization History Date of Tetanus Vaccine: utd Date of Influenza Vaccine: never Infectious Disease History: No Infectious Disease History: Denies: Traveled Outside the [place] in Last 30 Days - Family History Known Family History: Positive: Other - Breast cancer - Social History Occupation: Retired Lives: Alone Alcohol Use: None Hx Substance Use: No Substance Use Type: Reports: None Hx Tobacco Use: No Smoking Status (MU): Never Smoked Tobacco Have You Smoked in the Last Year: No Review of Systems Positive: Fatigue. Negative: Fever, Chills, Skin Diaphoresis Negative: Erythema Negative: Sore Throat Positive: Chest Pain - Midsternal Positive: Cough. Negative: Shortness Of Breath Positive: Other - Negative changes in bowel movements. Negative: Abdominal Pain , Vomiting, Nausea Negative: dysuria, hematuria Negative: Myalgia, Edema Negative: Rash Neurological: Other - Negative dizziness or lightheadedness Positive: Weakness - Generalized All Other Systems Reviewed And Are Negative: Yes Physical Exam - Summary Physical Exam Summary: Constitutional: Well-developed, Well-nourished, Alert. (-) Distressed Skin: Warm, Dry HENT: Normocephalic; Atraumatic Eyes: Conjunctiva normal Neck: Musculoskeletal ROM normal neck. (-) JVD, (-) Stridor, (-) Tracheal deviation Cardio: Rhythm regular, rate normal, Heart sounds normal; Intact distal pulses; The pedal pulses are 2+ and symmetric. Radial pulses are 2+ and symmetric. (-) Murmur Pulmonary/Chest wall: Effort normal. (-) Respiratory distress, (-) Wheezes, (-) Rales Abd: Soft, (-) tenderness, (-) Distension, (-) Guarding, (-) Rebound Musculoskeletal: (-) Edema Lymph: (-) Cervical adenopathy Neuro: Alert, Oriented x3 Psych: Mood and affect Normal Triage Information Reviewed: Yes Vital Signs On Initial Exam: Initial Vitals Temp Pulse Resp BP Pulse Ox 97.9 F 116 18 129/86 99 01/31/19 15:40 01/31/19 15:40 01/31/19 15:40 01/31/19 15:40 01/31/19 15:40 Vital Signs Reviewed: Yes Procedures - Sedation Patient Received Moderate/Deep Sedation with Procedure: No Diagnostics - Vital Signs Vital Signs Temp Pulse Resp BP Pulse Ox 01/31/19 15:40 97.9 F 116 18 129/86 99 - Laboratory Result Diagrams: 01/31/19 16:23 01/31/19 17:21 Lab Statement: Any lab studies that have been ordered have been reviewed, and results considered in the medical decision making process. - Radiology Chest X-ray Radiology Interpretation Completed By: Radiologist Summary of Radiographic Findings: Chest X-ray IMPRESSION: POSTSURGICAL CHANGES, NO EVIDENCE FOR ACUTE FINDING. Reviewed by Dr. Saucedo. - EKG 15:54 Cardiac Rate: Tachycardia - 145 BPM EKG Rhythm: Sinus Tachycardia ST Segment: Normal Ectopy: None Summary of EKG Findings: EKG at 15:54 shows 145 BPM with sinus tachycardia, no STEMI. Reviewed and interpreted by Dr. Saucedo. Chest Pain Course/Dx - Course Course Of Treatment: Patient is a 73 y/o F presenting to the ED via EMS for a chief complaint of intermittent midsternal chest pain that began on 01/26/19 while at rest. Patients PCP called the police after the patient missed her appointment on 01/31/19. The chest pain is described as lasting for about one day before resolving. She currently denies chest pain. She admits cough, and generalized weakness and fatigue for the last 3 years that she attributes to an undiagnosed stroke. Patient denies any fever, chills, diaphoresis, erythema of eyes, sore throat, SOB, abdominal pain, N/V, changes in bowel movements, dysuria , hematuria, myalgia, edema, rash, lightheadedness, or dizziness. [facility] on 01/27/19 and discharged home. She notes possible thyroid problems because she discussed a thyroid biopsy with another provider. On exam, unremarkable findings. In and out of atrial flutter while in the room. Laboratory abnormal findings: WBC 12.2, absolute neuts 10.3, sodium 134, chloride 98, anion gap 14, BUN 38, creatinine 1.23, BUN/Creatinine ratio 30.9, glucose 398, AST 8, ALT 3, free T4 1.38. In the ED course, patient was given metoprolol 5 mg IV and fluids. EKG at 15:54 shows 145 BPM with sinus tachycardia, no STEMI. Chest X-ray IMPRESSION: POSTSURGICAL CHANGES, NO EVIDENCE FOR ACUTE FINDING. At 15:51, Dr. Goldman agrees to admit the patient to [facility] with a diagnosis of rapid atrial fibrillation. Patient will be admitted to [facility] with a diagnosis of rapid atrial fibrillation. - Diagnoses Provider Diagnoses: Rapid atrial fibrillation - Provider Notifications Discussed Care Of Patient With: Franco Sequeira - At 15:51, Dr. Goldman agrees to admit the patient to [facility] with a diagnosis of rapid atrial fibrillation. Time Discussed With Above Provider: 15:51 Instructed by Provider To: Admit As Inpatient - Critical Care Time Critical Care Time: 30-74 min - 45 minutes Discharge ED - Sign-Out/Discharge Documenting (check all that apply): Patient Departure - Admit - Discharge Plan Condition: Stable Disposition: ADMITTED TO [facility] Referrals: Ruby Trinh MD [Primary Care Provider] - - Attestation Statements Document Initiated by Scribe: Yes Documenting Scribe: Ewa Randolph Provider For Whom Scribe is Documenting (Include Credential): Nuno Saucedo MD Scribe Attestation: Ewa Benavides, scribed for Nuno Saucedo MD on 01/31/19 at 1934. Status of Scribe Document: Ready
[2019-01-31 16:52] LABS: Hematocrit 41 % (35-47); Hemoglobin 13.7 g/dL (12.0-16.0); Mean Corpuscular HGB Conc 33 g/dL (31-36); Mean Corpuscular Hemoglobin 30 pg (27-31); Mean Corpuscular Volume 90 fL (80-97); Red Cell Distribution Width 14 % (10-15)
[2019-01-31 16:55] LABS: Troponin I 0.02 ng/mL (<0.03)
[2019-01-31] MEDS ORDERED: Metoprolol Tartrate IV* 1 MG/ML 5 ML VIAL IV ONE (17:03)
[2019-01-31 17:18] LABS: Albumin 3.9 g/dL (3.2-5.2); CO2 Carbon Dioxide 22 mmol/L (22-32); Calcium 9.1 mg/dL (8.6-10.3); Chloride 98 mmol/L (101-111); Sodium 134 mmol/L (135-145)
[2019-01-31 17:20] LABS: Anion Gap 14 mmol/L (2-11)
[2019-01-31 17:24] LABS: ALT 3 U/L (7-52); Alkaline Phosphatase 95 U/L (34-104); BUN/Creatinine Ratio 30.9 (8-20); Blood Urea Nitrogen 38 mg/dL (6-24); EGFR African American 51.9 (>60); EGFR Non-African American 42.9 (>60); Globulin 3.8 g/dL (2-4); Glucose 398 mg/dL (70-100); Total Protein 7.7 g/dL (6.4-8.9)
[2019-01-31 17:28] LABS: Mean Platelet Volume 9.6 fL (7.4-10.4); Platelet Count 312 10^3/uL (150-450); White Blood Count 12.2 10^3/uL (3.5-10.8)
[2019-01-31 17:29] LABS: ABS Neutrophils 10.3 10^3/ul (1.5-7.7); Eosinophil % 0.3 %; Lymphocyte % 9.1 %
[2019-01-31 17:30] LABS: ABS Basophils 0.1 10^3/ul (0-0.2); ABS Eosinophils 0.1 10^3/ul (0-0.6); ABS Lymphocytes 1.1 10^3/ul (1.0-4.8); ABS Monocytes 0.7 10^3/ul (0-0.8)
[2019-01-31 18:14] LABS: TSH (Thyroid Stimulating Horm) 0.87 mcIU/mL (0.34-5.60)
[2019-01-31 18:18] LABS: Free T4 1.38 ng/dL (0.61-1.12)
[2019-01-31 18:48] LABS: Magnesium 1.9 mg/dL (1.9-2.7); Potassium Redraw 4.1 mmol/L (3.5-5.0)
[2019-01-31] MEDS ORDERED: Acetaminophen TAB* 325 MG PO PRN (19:23)
[2019-01-31] MEDS ORDERED: Dextrose 50% VIAL 50 ml IV PUSH PRN (19:34)
[2019-01-31] MEDS ORDERED: Iodixanol* (CONTRAST) 320 MG/ML 100 ML SDV IV ONE (19:40)
[2019-01-31] MEDS: NS 0.9% 1000 ML** 1,000 ML IV SCH (20:53)
[2019-01-31] MEDS: Enoxaparin(*) 40 MG/0.4 ML SYR SUBCUT SCH (22:04)
--- NOTE | 2019-01-31 22:06 | HP ---
CC: Dr. Trinh * HISTORY AND PHYSICAL: DATE OF ADMISSION: 01/31/19 PRIMARY CARE PROVIDER: Dr. Trinh. ATTENDING PHYSICIAN: Franco Sequeira MD * (dictated by GIBRAN Lentz) CHIEF COMPLAINT: Chest pain. HISTORY OF PRESENT ILLNESS: Ms. Ge is a 73-year-old female with a past medical history of hypertension; diabetes mellitus, type 2; history of breast cancer, status post radiation, lumpectomy in 1993; and recent hospitalization for hyperglycemia, leukocytosis, and coronary artery disease, diagnosed after a stress test found a small area of ischemia representing prior myocardial infarction. The patient was inpatient from 12/25/18 to 01/01/19, she was discharged after a full ACS workup was performed after having found mildly elevated troponins that peaked at 0.06. She received a stress test, which again showed a small area of ischemia on the apex that likely represented a prior NM and echocardiogram was obtained that revealed EF of 60 to 65, mild MS. Today, the patient states that she missed her doctor's appointment due to being unable to catch the [employer]. Her doctor called the police to check on the patient. When the police arrived, the patient complained of chest pain, which prompted them to call the ambulance. Currently, the patient complains of midsternal chest pain for approximately 6 weeks. She states that this fluctuates. She describes the pain as sharp. It is worse when she is lying down. She has not taken any medications for it. She notes that it is worse with coughing, burping, swallowing. She has no change in chest pain with breathing. There is no radiation of the pain. She rates the pain at 2 to 3/10 right now. She denies palpitations, shortness of breath, diaphoresis, dizziness, lightheadedness, although she does complain of dyspnea on exertion at times. She notes that she has had a cough for approximately 1 week, but denies fevers or chills. She denies changes in urination, abdominal pain, nausea, vomiting, diarrhea. She does complain of generalized weakness, which she states is chronic. She has a past medical history of hypertension, which she takes amlodipine, lisinopril, metoprolol tartrate for as well as insulin-dependent diabetes. The patient notes that she is noncompliant with these medications. The last time she took insulin was Monday when she was in the ER. She states that someone took her needles and therefore she has been unable to use her insulin at home. She does not take her hypertension medications regularly, but instead takes them intermittently. The only medication she states that she is compliant with amitriptyline. In the ER, the patient was found leukocytosis, elevated BUN, creatinine, and elevated glucose of 398. Chest x-ray was performed and revealed postsurgical changes, but no acute abnormality. EKG shows a 145 ventricular rate, sinus tachycardia, for which the patient was given metoprolol tartrate 5 mg IV. She also received 1 L of normal saline bolus. Hospitalist team was asked to further evaluate the patient for admission. PAST MEDICAL HISTORY: 1. Diabetes mellitus, type 2, insulin dependent. 2. Hypertension. 3. History of left-sided breast cancer, status post lumpectomy and radiation therapy in approximately 1993. 4. Depression. 5. 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 PAST SURGICAL HISTORY: Cardiac surgery at the age of 14 for congenital abnormality, left breast lumpectomy, wisdom teeth. HOME MEDICATIONS: 1. Acetaminophen 650 mg p.o. q.4 hours p.r.n. 2. Amitriptyline 50 mg p.o. at bedtime. 3. Amlodipine 10 mg p.o. daily. 4. Aspirin 81 mg p.o. daily. 5. Atorvastatin 80 mg p.o. at 1700. 6. Insulin aspart 0 to 8 units subcu t.i.d. a.c. 7. Insulin glargine 25 units subcu at bedtime. 8. Lisinopril 40 mg p.o. daily. 9. Metoprolol tartrate 12.5 mg p.o. q.12 hours. 10. Paroxetine 40 mg p.o. daily. DRUG ALLERGIES: CIPRO, rash, pruritus. FAMILY HISTORY: Father had a history of CVA, at the age of 97 from natural causes. Mother at the age of 90. The patient states she fell, had a hip replacement and then "went downhill from there." No family history of diabetes mellitus or cancer. SOCIAL HISTORY: The patient denies current or former use of tobacco. She lives with her 2 cats. She is . She has 1 daughter, who lives in [facility]. She has help from [employer] aide. She notes that [employer] aide came approximately 2 to 3 times per week, but has been less than weekly recently. She declines to appoint a surrogate decision maker at this time. PHYSICAL EXAMINATION GENERAL: Ms. Ge is a well-developed, well-nourished, overweight, older white female, who is sitting up in bed. She is unkempt. She appears somewhat older than her stated age. She appears to be in no acute distress. VITAL SIGNS: Temperature 97.9, temporal, heart rate 64, respiratory rate 16, oxygen saturation 97% on room air, blood pressure 163/89. HEENT: PERRL. EOMI. Nonicteric sclerae. Hearing is grossly intact. Oral mucous membranes are dry. Poor dentition. No lesions. Posterior pharynx is clear. Palate elevates symmetrically. Tongue is at midline. PULMONARY: Symmetrical chest expansion without use of accessory muscles. Clear to auscultation bilaterally without rhonchi, wheeze, or rub. CARDIOVASCULAR: Regular rate and rhythm with S1, S2 present without murmurs, rubs, clicks, or gallops. There is no JVD. There is no peripheral edema. Radial pulses are palpable and equal. ABDOMEN: Bowel sounds in all quadrants. Soft, nontender to palpation. MUSCULOSKELETAL: Full range of motion without pain or deformity. 5/5 strength bilaterally in the upper and lower extremities. NEURO: The patient is awake. She is alert and oriented x3 with cranial nerves grossly intact. She is able to move all of her extremities. Motor strength is 5/5 bilaterally in upper and lower extremities. DIAGNOSTIC STUDIES/LAB DATA: WBC is 12.2. Sodium 134, chloride 98, anion gap 14, BUN 38, creatinine 1.23, glucose 398, TSH 0.87, free T4 of 1.38. Chest x-ray, impression: Postsurgical changes, no evidence for acute finding. EKG, rate of 145, sinus tachycardia. ASSESSMENT AND PLAN: Ms. Ge is a 73-year-old female with a past medical history of diabetes, insulin dependent; hypertension; noncompliance with medications, who presented to the ER today with complaints of chest pain. She will be admitted observation for: 1. Chest pain. The patient has had chest pain for approximately 6 weeks. She received a full ACS workup in December including an echocardiogram, which revealed no wall motion abnormality and a stress test that showed a small area of ischemia likely consistent with previous NM. She had been optimized with medical treatment with baby aspirin, KRYSTIAN inhibitor, and beta-keenan. She is noncompliant with these medications. At this time, we will restart her home medications. We will trend her troponins x3. She is noted to have sinus tachycardia on EKG. We will obtain a CTA of the chest to assess for a pulmonary embolism. 2. Acute kidney injury. The patient presents with an acute kidney injury, likely related to dehydration, the patient does appear dry. She has received 1 L of IV fluids in the ER. She will be continued on gentle IV hydration overnight, a total of 2 L. We will recheck her kidney function in the morning. 3. Social issue. The patient reports noncompliance with home medications. When asked what would inspired her to take her medications daily, she states "making me feel better." She does have [employer] aides at home, but she states that they come infrequently. A social work consult will be placed as the patient may benefit from more help, particularly with medications. 4. Diabetes mellitus. The patient reports that she has not used insulin since Monday when she arrived for an ER visit. Her blood glucose is 398 currently. She will be started back on her home dose of glargine 25 and started on lispro sliding scale. 5. Hypertension. The patient is again noncompliant with medications. She will restart her home medications at this time. 6. DVT prophylaxis. According to the DVT Risk Assessment, the patient scores 3 placing her at high risk. She will be started on Lovenox. 7. Code status. The patient wishes to be DNR. TIME SPENT: Approximately 60 minutes was spent on this admission, greater than half that time was spent [id number] with the patient obtaining history, performing a physical, reviewing the plan of care. The case has been reviewed with my attending, Dr. Seqeuira, who is in agreement with the plan of care. GIBRAN LENTZ [id number]/[facility] #: [id number] KENNEDY
[2019-01-31] MEDS: Metoprolol Tartrate TAB* 25 MG PO SCH (22:51)
[2019-01-31] MEDS: Amitriptyline TAB* 50 MG PO SCH (22:51)
[2019-01-31] MEDS: Insulin GLARGINE(*) 1 UNITS UNIT SUBCUT SCH (22:52)
[2019-01-31] MEDS: Insulin LISPRO* 1 UNITS UNIT SUBCUT SCH (22:53)
[2019-02-01 06:41] LABS: ABS Basophils 0.1 10^3/ul (0-0.2); ABS Eosinophils 0.1 10^3/ul (0-0.6); ABS Lymphocytes 2.2 10^3/ul (1.0-4.8); ABS Monocytes 0.9 10^3/ul (0-0.8); ABS Neutrophils 6.9 10^3/ul (1.5-7.7); Eosinophil % 1.3 %; Hematocrit 30 % (35-47); Hemoglobin 10.3 g/dL (12.0-16.0); Lymphocyte % 21.7 %; Mean Corpuscular HGB Conc 34 g/dL (31-36); Mean Corpuscular Hemoglobin 30 pg (27-31); Mean Corpuscular Volume 88 fL (80-97); Mean Platelet Volume 8.5 fL (7.4-10.4); Platelet Count 267 10^3/uL (150-450); Red Blood Count 3.43 10^6 /uL (3.70-4.87); Red Cell Distribution Width 14 % (10-15); White Blood Count 10.2 10^3/uL (3.5-10.8)
[2019-02-01 07:08] LABS: BUN/Creatinine Ratio 25.2 (8-20); EGFR Non-African American 50.4 (>60); Potassium 3.8 mmol/L (3.5-5.0)
[2019-02-01] MEDS: Insulin LISPRO* 1 UNITS UNIT SUBCUT SCH ×4 (08:58→21:28)
--- NOTE | 2019-02-01 09:57 | PN ---
Subjective Date of Service: 02/01/19 Interval History: Ms. Ge complains of intermittent mid-sternal, epigastric discomfort made worse with eating, burping or hiccoughing. She believes it is worse with movement, not painful to palpation. She denies SOB. She denies nausea, diarrhea or abdominal pain. She describes having this pain for 6 weeks, it is not worsening in intensity or frequency. She only came to the hospital when she was unable to get to her doctor's appt due to a problem she attributes to [facility] transportation services. She notes speaking to her PCP and noting that she couldn't make her follow up appt. When she described chest discomfort that recommended that she call EMS to come to the hospital. She notes that she has not been taking her meds routinely since being discharged from [facility] as she does not have consistent support from aide services any longer. She specifically notes not taking her insulin. Objective Active Medications: Acetaminophen (Tylenol Tab*) 650 mg PO Q4H PRN Amitriptyline HCl (Elavil Tab*) 50 mg PO BEDTIME [facility] Amlodipine Besylate (Norvasc Tab*) 10 mg PO DAILY [facility] Aspirin (Aspirin Ec Tab*) 81 mg PO DAILY [facility] Atorvastatin Calcium (Lipitor*) 80 mg PO 1700 [facility] Dextrose (Dextrose 50% Vial 50 Ml*) 25 ml IV PUSH .FOR FS < 60 - SS PRN Enoxaparin Sodium (Lovenox(*)) 40 mg SUBCUT Q24H [facility] Sodium Chloride (Ns 0.9% 1000 Ml) 1,000 mls @ 100 mls/hr IV PER RATE [facility] Insulin Glargine (Lantus(*)) 25 units SUBCUT BEDTIME [facility] Insulin Human Lispro (Humalog*) 0 units SUBCUT ACHS [facility]; Protocol Lisinopril (Prinivil Tab*) 40 mg PO DAILY [facility] Metoprolol Tartrate (Lopressor Tab*) 12.5 mg PO Q12HR [facility] Paroxetine HCl (Paxil Tab*) 40 mg PO DAILY [facility] Vital Signs: Temp Pulse Resp BP Pulse Ox 98.1 F 82 16 130/70 96 02/01/19 03:15 02/01/19 03:15 02/01/19 03:15 02/01/19 03:15 02/01/19 03:15 Oxygen Devices in Use Now: None Appearance: Female lying in bed in NAD Eyes: No Scleral Icterus Ears/Nose/Mouth/Throat: Mucous Membranes Moist Neck: Trachea Midline Respiratory: Symmetrical Chest Expansion and Respiratory Effort, Clear to Auscultation Cardiovascular: NL Sounds; No Murmurs; No JVD, No Edema Extremities: No Edema Skin: No Rash or Ulcers Neurological: Alert and Oriented x 3, NL Muscle Strength and Tone Nutrition: Taking PO's Result Diagrams: 02/01/19 06:32 02/01/19 06:32 Assess/Plan/Problems-Billing Assessment: Ms. Ge is a 73 yo F with a PMH of HTN, DM and recent admission in December 2018 with finding of prior IN, intact EF who was admitted on 01/31/19 with chest pain. - Patient Problems (1) Chest pain Comment: - Patient reports chest pain x 6 weeks, suspect GI origin, will start pantoprazole and sucralfate. - Trop 0.02 -> 0.02 - EKG with sinus tachy, then SR and no evidence of ischemia - Recent stress test in December 2018 with finding of small area of ischemia in the apex, thought to reflect prior IN, plan for maximal medical therapy, improve diabetes control. Echo at that time with intact EF and no wall motion abnormalities. - Continue metoprolol, aspirin, lisinopril. Patient reports being noncompliant with medications. (2) Hypertension Comment: - SBP 130-150s. - Continue amlodipine, metoprolol, lisinopril (3) Diabetes Comment: - BG 120-220 - Lantus 25 units bedtime. Continue lispro SSI coverage with meals. - HgbA1c 11% in December 2018. (4) Depression Comment: - Continue paroxetine (5) DVT prophylaxis Comment: - Lovenox (6) Full code status Comment: Status and Disposition: OBV. Patient will need additional support services but is refusing any type of placement. She has been evaluated by psychiatry to not have capacity to refuse placement for services.
--- NOTE | 2019-02-01 10:09 | CONSULT ---
Consult Consult: Consult Reason: For Medical Decision Making Capacity S: Psychiatry is asked to evaluate this 73 year old female for medical decision making capacity. The patient has multiple hospital visits as a result of medication non-compliance and a history of CAD, HTN, Diabetes, and the inability to care for herself. She lives alone in [place] and recently had her cats taken away from her by animal services. She reported that getting her cats back are no longer in her control, and said that she has accepted that. She reported that she has not been able to take her medications as directed because she forgets. She knows that when she does not take her medications she feels sick and has chest pain. The patient described living in deplorable conditions. She is unable to provide the indications or names of her medications. When a living facility was discussed she did say that she would be in agreement with going to a facility with nursing assistance. Past Psychiatric history: Hoarding Disorder O: 73 year old female appears older than stated age , disheveled and poor grooming. Euthymic affect. Linear and goal directed thoughts. No delusions or preoccupations. Denied suicidal ideation, intent or plan. Denied homicidal ideation intent or plan. No perceptual disturbances. Insight and judgment poor. She is aware of the name of her current location, month, day and year. She knows the name of the current president. A/P: Capacity: DX: Hoarding Disorder This patient lacks the capacity to make the decision to refuse transfer to a a nursing care facility. At this time this patient lacks the capacity to rationally make her own medical decisions given the following reasons: 1) The patient was able to communicate a choice. 2) The patient is unable to understand the meaning of the information communicated to her about her illness and to appreciate her medical condition as well as the outcome and the consequences of accepting or refusing various treatment options. 3) The patient was unable to engage in a rational process of considering alternative treatment options. Thank you for the consult. Please call if you have any questions. Catracho Naylor M.D. Psychiatrist #[id number]
[2019-02-01] MEDS: Lisinopril TAB* 10 MG PO SCH (10:25)
[2019-02-01] MEDS: Metoprolol Tartrate TAB* 25 MG PO SCH ×2 (10:25→21:32)
[2019-02-01] MEDS: Aspirin EC TAB* 81 MG TAB.EC PO SCH (10:25)
[2019-02-01] MEDS: amLODIPine TAB* 5 MG PO SCH (10:25)
[2019-02-01] MEDS: PARoxetine HCL TAB* 20 MG PO SCH (10:25)
[2019-02-01] MEDS: NS 0.9% 1000 ML** 1,000 ML IV SCH (10:29)
[2019-02-01] MEDS: Pantoprazole TAB * 40 MG TAB PO SCH (13:37)
[2019-02-01] MEDS: Sucralfate TAB* 1 GM PO SCH ×2 (13:37→19:20)
[2019-02-01] MEDS: Atorvastatin* 80 MG TAB PO SCH (17:07)
[2019-02-01] MEDS: Enoxaparin(*) 40 MG/0.4 ML SYR SUBCUT SCH (20:17)
[2019-02-01] MEDS: Insulin GLARGINE(*) 1 UNITS UNIT SUBCUT SCH (21:28)
[2019-02-01] MEDS: Amitriptyline TAB* 50 MG PO SCH (21:29)
[2019-02-02] MEDS: Insulin LISPRO* 1 UNITS UNIT SUBCUT SCH ×3 (08:23→17:29)
[2019-02-02] MEDS: Metoprolol Tartrate TAB* 25 MG PO SCH ×2 (09:17→21:12)
[2019-02-02] MEDS: PARoxetine HCL TAB* 20 MG PO SCH (09:17)
[2019-02-02] MEDS: amLODIPine TAB* 5 MG PO SCH (09:17)
[2019-02-02] MEDS: Pantoprazole TAB * 40 MG TAB PO SCH (09:17)
[2019-02-02] MEDS: Lisinopril TAB* 10 MG PO SCH (09:17)
[2019-02-02] MEDS: Aspirin EC TAB* 81 MG TAB.EC PO SCH (09:17)
--- NOTE | 2019-02-02 09:33 | PN ---
Subjective Date of Service: 02/02/19 Interval History: Ms. Ge reports that she is feeling well today. She has significantly less discomfort in the upper abdomen and epigastric region. She denies other complaint. Objective Active Medications: Acetaminophen (Tylenol Tab*) 650 mg PO Q4H PRN Amitriptyline HCl (Elavil Tab*) 50 mg PO BEDTIME [facility] Amlodipine Besylate (Norvasc Tab*) 10 mg PO DAILY [facility] Aspirin (Aspirin Ec Tab*) 81 mg PO DAILY [facility] Atorvastatin Calcium (Lipitor*) 80 mg PO 1700 [facility] Dextrose (Dextrose 50% Vial 50 Ml*) 25 ml IV PUSH .FOR FS < 60 - SS PRN Enoxaparin Sodium (Lovenox(*)) 40 mg SUBCUT Q24H [facility] Insulin Glargine (Lantus(*)) 25 units SUBCUT BEDTIME [facility] Insulin Human Lispro (Humalog*) 0 units SUBCUT ACHS [facility]; Protocol Lisinopril (Prinivil Tab*) 40 mg PO DAILY [facility] Metoprolol Tartrate (Lopressor Tab*) 12.5 mg PO Q12HR [facility] Pantoprazole Sodium (Protonix Tab*) 40 mg PO DAILY [facility] Paroxetine HCl (Paxil Tab*) 40 mg PO DAILY [facility] Sucralfate (Carafate*) 1 gm PO AC [facility] Vital Signs: Temp Pulse Resp BP Pulse Ox 98.1 F 76 20 153/65 76 02/02/19 07:30 02/02/19 07:30 02/02/19 08:00 02/02/19 07:30 02/02/19 07:30 Oxygen Devices in Use Now: None Appearance: Female lying in bed in NAD Eyes: No Scleral Icterus Ears/Nose/Mouth/Throat: Mucous Membranes Moist Neck: Trachea Midline Respiratory: Symmetrical Chest Expansion and Respiratory Effort, Clear to Auscultation Cardiovascular: NL Sounds; No Murmurs; No JVD, No Edema Abdominal: NL Sounds; No Tenderness; No Distention Extremities: No Edema Skin: No Rash or Ulcers Neurological: Alert and Oriented x 3, NL Muscle Strength and Tone Nutrition: Taking PO's Result Diagrams: 02/01/19 06:32 02/01/19 06:32 Microbiology and Other Data: . Assess/Plan/Problems-Billing Assessment: Ms. Ge is a 73 yo F with a PMH of HTN, DM and recent admission in December 2018 with finding of prior VA, intact EF who was admitted on 01/31/19 with chest pain. - Patient Problems (1) Chest pain Comment: - Resolving with addition of pantoprazole and sucralfate. - Trop 0.02 -> 0.02 - EKG with sinus tachy, then SR and no evidence of ischemia - Recent stress test in December 2018 with finding of small area of ischemia in the apex, thought to reflect prior VA, plan for maximal medical therapy, improve diabetes control. Echo at that time with intact EF and no wall motion abnormalities. - Continue metoprolol, aspirin, lisinopril. Patient reports being noncompliant with medications. (2) Hypertension Comment: - SBP 130-150s. - Continue amlodipine, lisinopril -> plan to increase metoprolol to 25 mg BID (3) Diabetes Comment: - BG 60-220 - Stop HS BG coverage, continue Lantus 25 units bedtime. Continue lispro SSI coverage with meals. - HgbA1c 11% in December 2018. (4) Depression Comment: - Continue paroxetine (5) DVT prophylaxis Comment: - Lovenox (6) Full code status Comment: Status and Disposition: Fdc care. Patient will need additional support services but is refusing any type of placement. She has been evaluated by psychiatry to not have capacity to refuse placement for services.
[2019-02-02] MEDS: Sucralfate TAB* 1 GM PO SCH ×3 (11:30→20:22)
[2019-02-02] MEDS: Atorvastatin* 80 MG TAB PO SCH (17:29)
[2019-02-02] MEDS: Amitriptyline TAB* 50 MG PO SCH (21:12)
[2019-02-02] MEDS: Insulin GLARGINE(*) 1 UNITS UNIT SUBCUT SCH (21:13)
[2019-02-02] MEDS: Enoxaparin(*) 40 MG/0.4 ML SYR SUBCUT SCH (21:13)
[2019-02-03] MEDS: amLODIPine TAB* 5 MG PO SCH (08:31)
[2019-02-03] MEDS: Aspirin EC TAB* 81 MG TAB.EC PO SCH (08:31)
[2019-02-03] MEDS: Lisinopril TAB* 10 MG PO SCH (08:31)
[2019-02-03] MEDS: Metoprolol Tartrate TAB* 25 MG PO SCH ×2 (08:31→21:20)
[2019-02-03] MEDS: Insulin LISPRO* 1 UNITS UNIT SUBCUT SCH ×3 (08:31→17:24)
[2019-02-03] MEDS: Sucralfate TAB* 1 GM PO SCH ×3 (08:31→16:19)
[2019-02-03] MEDS: Pantoprazole TAB * 40 MG TAB PO SCH (08:32)
[2019-02-03] MEDS: PARoxetine HCL TAB* 20 MG PO SCH (08:32)
[2019-02-03] MEDS: Atorvastatin* 80 MG TAB PO SCH (16:19)
[2019-02-03] MEDS: Insulin GLARGINE(*) 1 UNITS UNIT SUBCUT SCH (21:20)
[2019-02-03] MEDS: Enoxaparin(*) 40 MG/0.4 ML SYR SUBCUT SCH (21:20)
[2019-02-03] MEDS: Amitriptyline TAB* 50 MG PO SCH (21:20)
[2019-02-04] MEDS: Sucralfate TAB* 1 GM PO SCH (07:11)
[2019-02-04 07:34] VITALS: BP 138/48
[2019-02-04] MEDS ORDERED: Metoprolol Tartrate TAB* 25 MG PO SCH (09:11)
[2019-02-04] MEDS: Metoprolol Tartrate TAB* 25 MG PO SCH (09:15)
[2019-02-04] MEDS: Insulin LISPRO* 1 UNITS UNIT SUBCUT SCH ×2 (09:16→12:30)
[2019-02-04] MEDS: Lisinopril TAB* 10 MG PO SCH (09:23)
[2019-02-04] MEDS: Pantoprazole TAB * 40 MG TAB PO SCH (09:24)
[2019-02-04] MEDS: PARoxetine HCL TAB* 20 MG PO SCH (09:24)
[2019-02-04] MEDS: Aspirin EC TAB* 81 MG TAB.EC PO SCH (09:25)
[2019-02-04] MEDS: amLODIPine TAB* 5 MG PO SCH (09:25)
--- NOTE | 2019-02-04 12:43 | DS ---
CC: Dr. Trinh; [facility]; Dr. Naylor * DISCHARGE SUMMARY: DATE OF ADMISSION: 01/31/19 DATE OF DISCHARGE: 02/04/19 PRIMARY CARE PROVIDER: Dr. Trinh. DISPOSITION AT DISCHARGE: To [facility]. CONDITION ON DISCHARGE: Stable. DISCHARGE DIAGNOSIS: Chest pain, likely related to gastrointestinal such as epigastric upset. SECONDARY DIAGNOSES: 1. History of recent evaluation for chest pain with stress test obtained in December of 2018 showed a small area of ischemia at the apex that likely represented prior myocardial infarction. CT angiogram of the chest obtained this hospital stay was negative for pulmonary embolism. 2. Diabetes type 2, insulin dependent. 3. Hypertension. 4. History of left-sided breast cancer, status post lumpectomy and radiation in 1993. 5. Depression. 6. Congenital heart abnormality, requiring surgery when the patient was a child. MEDICATIONS AT DISCHARGE: Include: 1. Elavil 50 mg at bedtime. 2. Norvasc 10 mg daily. 3. Paxil 40 mg daily. 4. Acetaminophen on a p.r.n. basis. 5. Aspirin 81 mg daily. 6. Lipitor 80 mg daily. 7. Insulin aspart sliding scale. 8. Insulin glargine 25 units daily. 9. Lisinopril 40 mg daily. 10. Metoprolol tartrate 12.5 mg every 12 hours. 11. Protonix 40 mg daily. 12. Carafate 1 g with each meal 3 times a day. LABORATORY DATA AND STUDIES PERFORMED DURING THE HOSPITAL STAY: Included on , white blood cell count of 10.2, hemoglobin of 10.3, hematocrit of 30, and platelets of 267. On 01/30/19, sodium 141, potassium 3.8, chloride 109, carbon dioxide 27, BUN 57, creatinine 1.07. CT angiogram of the chest obtained on 01/31/19, impression: "No acute findings. No evidence of pulmonary embolism. Cardiomegaly with coronary artery disease, status post remote sternotomy. Dependent bilateral lower lobe opacities, likely atelectasis. A component of mild pulmonary edema is not favored, but cannot be excluded." CONSULTATION DURING THE HOSPITAL STAY: Included Dr. Naylor from Psychiatry. HOSPITALIZATION COURSE: Brenda Ge is a 73-year-old female with history of diabetes, who presented to the hospital once again complaining of chest pain. As per our social work consult, the patient has history of hoarding and unsafe living environment. The patient was strongly recommended to be placed in rehabilitation/snf facility, but she refused. Dr. Naylor from Psychiatry saw the patient in evaluation and noted that the patient is not capable of making decisions in regards to her placement. At this point, the patient was placed on skilled nursing care and awaited placement that occurred today. The patient is accepted at [facility] for further physical therapy and treatment. The patient at this point is acceptable and agreeable to transfer to rehabilitation. In regards to the patient's chest pain, her CTA was negative for PE. Her chest pain resolved after the addition of Carafate and Protonix and likely was related due to epigastric discomfort. By the time of discharge, her pain resolved. The patient is recommended to follow up with primary care provider at snf in approximately 1 to 7 days. PHYSICAL EXAMINATION: At the time of discharge, blood pressure of 138/48, heart rate of 53 and regular, respiratory rate 16, oxygen saturation 97% on room air, temperature 97.5. General: The patient is a very pleasant 73-year- old female, who is in no acute distress. Alert, awake, and oriented x3. HEENT : Head: Atraumatic, normocephalic. Eyes: Pupils are equal, reactive to light and accommodation. Oropharynx is clear. Mucosa moist. Neck: Supple. No JVD. No bruits bilaterally. Cardiovascular: Regular rate and rhythm. No murmur. Respiratory: Clear to auscultation bilaterally. Abdomen: Soft, nontender. Bowel sounds are present in all 4 quadrants. Extremities: There is no edema. Pulses are +2 bilaterally. No clubbing or cyanosis. On neuro evaluation, speech is clear. Cranial nerves II through XII are grossly intact. Motor strength is 5/5 bilaterally. On evaluation of the skin, the patient has multiple scattered ecchymotic areas on bilateral upper and lower extremities. Please note that this is a short summary of the patient's hospital stay. Please refer to further medical records for details. TIME SPENT: Approximately 35 minutes was spent on the patient's discharge. [id number]/[facility] #: [id number] MTDD
== END 2019-02-04 14:31 | DRG 313 ==
LOC: ED 15:25 → MEDTELE 19:20 → OBSVTOIN 02-01 16:00
PROVIDERS: ADMIT Student in an Organized Health Care Education/Training Program; ATTEND Internal Medicine
DX: R07.89 Other chest pain (principal); N17.9 Acute kidney failure, unspecified; I25.10 Atherosclerotic heart disease of native coronary artery without angina pectoris; I10 Essential (primary) hypertension; F42.3 Hoarding disorder; R00.0 Tachycardia, unspecified; E11.9 Type 2 diabetes mellitus without complications; F32.9 Major depressive disorder, single episode, unspecified; E86.0 Dehydration; F41.0 Panic disorder [episodic paroxysmal anxiety]; Z85.3 Personal history of malignant neoplasm of breast; Z92.3 Personal history of irradiation; Z91.14 Patient's other noncompliance with medication regimen; I25.2 Old myocardial infarction; Z88.1 Allergy status to other antibiotic agents; Z79.4 Long term (current) use of insulin; Z79.82 Long term (current) use of aspirin; Z79.899 Other long term (current) drug therapy
CPT/HCPCS: 36415; 71045; 71275; 80048; 80053; 83605; 83735; 84439; 84443; 84484; 85025; 87040; 93005; 96372; 96374; 99283; A9270-GY; G0378; J1650; J3490; Q9967

== ENCOUNTER 2020-01-02 17:24 | Inpatient (IN) ==
[2020-01-02 17:49] LABS: ABS Basophils 0.1 10^3/ul (0-0.2); ABS Monocytes 0.7 10^3/ul (0-0.8); ABS Neutrophils 11.5 10^3/ul (1.5-7.7); Eosinophil % 0.2 %; Hematocrit 38 % (35-47); Hemoglobin 12.7 g/dL (12.0-16.0); Lymphocyte % 7.7 %; Mean Corpuscular HGB Conc 33 g/dL (31-36); Mean Corpuscular Hemoglobin 30 pg (27-31); Mean Corpuscular Volume 89 fL (80-97); Mean Platelet Volume 8.9 fL (7.4-10.4); Platelet Count 290 10^3/uL (150-450); Red Blood Count 4.33 10^6 /uL (3.70-4.87); Red Cell Distribution Width 14 % (10-15); White Blood Count 13.4 10^3/uL (3.5-10.8)
[2020-01-02 17:55] LABS: INR 0.99 (0.82-1.09)
[2020-01-02 18:07] LABS: ALT 7 U/L (7-52); AST 12 U/L (13-39); Albumin/Globulin Ratio 1.2 (1-3); Alkaline Phosphatase 72 U/L (34-104); Anion Gap 13 mmol/L (2-11); BUN/Creatinine Ratio 24.7 (8-20); Blood Urea Nitrogen 22 mg/dL (6-24); CO2 Carbon Dioxide 28 mmol/L (22-32); Calcium 9.3 mg/dL (8.6-10.3); Chloride 96 mmol/L (101-111); EGFR African American 75.2 (>60); EGFR Non-African American 62.2 (>60); Globulin 3.3 g/dL (2-4); Glucose 191 mg/dL (70-100); Magnesium 1.5 mg/dL (1.9-2.7); Potassium 3.7 mmol/L (3.5-5.0); Sodium 137 mmol/L (135-145); Total Protein 7.3 g/dL (6.4-8.9)
[2020-01-02 18:39] LABS: Troponin I 0.14 ng/mL (<0.03)
[2020-01-02] MEDS ORDERED: Heparin - STEMI 5,000 UNITS/ML 1 ml VIAL IV ONE (18:59)
[2020-01-02] MEDS ORDERED: Heparin DRIP 25,000 UNITS BAG 25,000 UNITS/500 ML BAG IV SCH (19:00)
[2020-01-02 19:37] LABS: Activated Partial Thrombo Time 27.1 seconds (26.0-38.0)
[2020-01-02] MEDS ORDERED: Magnesium Sulfate IV 3 GM in NS 0.9% 100 ml BAG 100 ML IVPB ONE (19:38)
[2020-01-02] MEDS ORDERED: Heparin 5000 UNITS/ML 1 mL VIAL IV SCH (20:00)
[2020-01-02 21:24] LABS: Troponin I 0.18 ng/mL (<0.03)
[2020-01-02] MEDS ORDERED: Dextrose 50% Syringe 50 ml 25 GM/50 ML SYRINGE IV PUSH PRN (21:52)
[2020-01-02] MEDS ORDERED: Insulin GLARGINE 100 un/ml 10 ml VIAL SUBCUT SCH ×2 (22:00→23:00)
[2020-01-02 22:54] LABS: Cholesterol 257 mg/dL; HDL Cholesterol 53.8 mg/dL; LDL Cholesterol 175 mg/dL; Triglycerides 143 mg/dL
[2020-01-03] MEDS ORDERED: Labetalol IV 5 MG/ML 20 ml VIAL IV PUSH ONE (01:58)
[2020-01-03] MEDS ORDERED: Insulin GLARGINE 100 un/ml 10 ml VIAL ONE (02:02)
[2020-01-03] MEDS ORDERED: Labetalol IV 5 MG/ML 20 ml VIAL ONE (02:03)
[2020-01-03 02:59] LABS: Troponin I 0.16 ng/mL (<0.03)
[2020-01-03] MEDS: NS 0.9% 1000 ml BAG 1,000 ML IV SCH (03:29)
[2020-01-03 07:26] LABS: Calcium 8.6 mg/dL (8.6-10.3); EGFR African American 76.2 (>60); Magnesium 2.1 mg/dL (1.9-2.7); Potassium 3.1 mmol/L (3.5-5.0)
[2020-01-03] MEDS ORDERED: Aspirin EC 81 mg TAB.EC (enteric coated) ONE (09:07)
[2020-01-03] MEDS: Aspirin EC 81 mg TAB.EC (enteric coated) PO SCH (09:14)
[2020-01-03] MEDS: Potassium Chloride LIQUID 20 MEQ/15 ML LIQUID PO SCH ×2 (09:27→12:50)
[2020-01-03] MEDS ORDERED: Heparin 1,000 UNIT/ML 10 ml (10,000 UNITS) CATHLAB/DIALYSIS ONE (09:48)
[2020-01-03] MEDS ORDERED: VERAPAMIL 2.5 MG/ML 2 ML VIAL ** 5 mg/2 ml ONE (09:49)
[2020-01-03] MEDS ORDERED: Lidocaine 1% VIAL 10 MG/ML VIAL ONE (09:49)
[2020-01-03] MEDS ORDERED: Heparin 2 UNITS/ML 1000 mls 0 ML IV ONE (09:49)
[2020-01-03] MEDS ORDERED: nitroGLYCERIN DRIP 25,000 MCG/250 ML BTL ONE (09:49)
[2020-01-03] MEDS ORDERED: Iohexol 350 (CONTRAST) 200 ML MDV IV ONE (09:50)
[2020-01-03] MEDS ORDERED: IVPREMIX IV ONE (09:58)
[2020-01-03] MEDS ORDERED: HEPARIN IV ONE (09:58)
[2020-01-03] MEDS ORDERED: KCL 20 MEQ/100 ML IVPREMIX 20 MEQ/100 ML BAG IV SCH ×2 (10:00→12:30)
[2020-01-03] MEDS ORDERED: Midazolam 5 mg/5 ml VIAL 1 mg/ml 5 ml VIAL (5 mg) ONE (10:13)
[2020-01-03] MEDS ORDERED: fentaNYL 250 mcg/5 ml 50 MCG/ML 5 ml VIAL (250 MCG) ONE (10:16)
[2020-01-03] MEDS: KCL 20 MEQ/100 ML IVPREMIX 20 MEQ/100 ML BAG IV SCH ×3 (13:14→21:00)
[2020-01-03] MEDS: Insulin GLARGINE 100 un/ml 10 ml VIAL SUBCUT SCH (17:21)
[2020-01-03] MEDS: Heparin 5000 UNITS/ML 1 mL VIAL SUBCUT SCH (21:07)
[2020-01-04] MEDS: NS 0.9% 1000 ml BAG 1,000 ML IV SCH (01:07)
[2020-01-04] MEDS: Heparin 5000 UNITS/ML 1 mL VIAL SUBCUT SCH ×3 (05:17→21:21)
[2020-01-04 07:10] LABS: ABS Basophils 0.1 10^3/ul (0-0.2); ABS Eosinophils 0.2 10^3/ul (0-0.6); ABS Lymphocytes 1.4 10^3/ul (1.0-4.8); ABS Monocytes 1.2 10^3/ul (0-0.8); ABS Neutrophils 13.4 10^3/ul (1.5-7.7); Hematocrit 38 % (35-47); Hemoglobin 12.4 g/dL (12.0-16.0); Lymphocyte % 8.6 %; Mean Corpuscular HGB Conc 33 g/dL (31-36); Mean Corpuscular Hemoglobin 30 pg (27-31); Mean Corpuscular Volume 90 fL (80-97); Mean Platelet Volume 9.2 fL (7.4-10.4); Platelet Count 299 10^3/uL (150-450); Red Blood Count 4.18 10^6 /uL (3.70-4.87); Red Cell Distribution Width 14 % (10-15); White Blood Count 16.3 10^3/uL (3.5-10.8)
[2020-01-04 07:22] LABS: Calcium 8.8 mg/dL (8.6-10.3); Potassium 4.5 mmol/L (3.5-5.0)
[2020-01-04 07:27] LABS: BUN/Creatinine Ratio 21.7 (8-20); EGFR African American 72.4 (>60); EGFR Non-African American 59.8 (>60)
[2020-01-04] MEDS: Aspirin EC 81 mg TAB.EC (enteric coated) PO SCH (09:14)
[2020-01-04] MEDS ORDERED: hydrALAZINE 20 mg/ml 1 ML Vial IV IV SLOW PU SCH (14:00)
[2020-01-04] MEDS: Isosorbide Mononit ER 30mg TAB PO SCH (17:52)
[2020-01-04] MEDS: Insulin GLARGINE 100 un/ml 10 ml VIAL SUBCUT SCH (17:53)
[2020-01-05] MEDS: Heparin 5000 UNITS/ML 1 mL VIAL SUBCUT SCH ×3 (05:23→21:06)
[2020-01-05 06:57] LABS: ABS Basophils 0.1 10^3/ul (0-0.2); ABS Eosinophils 0.2 10^3/ul (0-0.6); ABS Lymphocytes 1.7 10^3/ul (1.0-4.8); ABS Monocytes 1.3 10^3/ul (0-0.8); ABS Neutrophils 11.8 10^3/ul (1.5-7.7); Eosinophil % 1.5 %; Hematocrit 35 % (35-47); Hemoglobin 11.6 g/dL (12.0-16.0); Lymphocyte % 11.5 %; Mean Corpuscular HGB Conc 34 g/dL (31-36); Mean Corpuscular Hemoglobin 30 pg (27-31); Mean Corpuscular Volume 89 fL (80-97); Mean Platelet Volume 9.5 fL (7.4-10.4); Platelet Count 275 10^3/uL (150-450); Red Blood Count 3.88 10^6 /uL (3.70-4.87); Red Cell Distribution Width 14 % (10-15); White Blood Count 15.1 10^3/uL (3.5-10.8)
[2020-01-05] MEDS: Isosorbide Mononit ER 30mg TAB PO SCH (08:45)
[2020-01-05] MEDS: Aspirin EC 81 mg TAB.EC (enteric coated) PO SCH (08:45)
[2020-01-05] MEDS: Insulin GLARGINE 100 un/ml 10 ml VIAL SUBCUT SCH (16:52)
[2020-01-06] MEDS: Heparin 5000 UNITS/ML 1 mL VIAL SUBCUT SCH ×3 (05:31→20:25)
[2020-01-06 07:02] LABS: ABS Basophils 0.1 10^3/ul (0-0.2); ABS Eosinophils 0.3 10^3/ul (0-0.6); ABS Lymphocytes 1.5 10^3/ul (1.0-4.8); ABS Monocytes 1.2 10^3/ul (0-0.8); ABS Neutrophils 10.6 10^3/ul (1.5-7.7); Eosinophil % 2.4 %; Hematocrit 35 % (35-47); Hemoglobin 11.6 g/dL (12.0-16.0); Lymphocyte % 10.9 %; Mean Corpuscular HGB Conc 33 g/dL (31-36); Mean Corpuscular Hemoglobin 29 pg (27-31); Mean Corpuscular Volume 89 fL (80-97); Mean Platelet Volume 9.2 fL (7.4-10.4); Platelet Count 264 10^3/uL (150-450); Red Blood Count 3.94 10^6 /uL (3.70-4.87); Red Cell Distribution Width 14 % (10-15); White Blood Count 13.8 10^3/uL (3.5-10.8)
[2020-01-06] MEDS: Isosorbide Mononit ER 30mg TAB PO SCH (08:02)
[2020-01-06] MEDS: Aspirin EC 81 mg TAB.EC (enteric coated) PO SCH (08:02)
[2020-01-06 11:48] LABS: Urine Appearance Clear; Urine Bilirubin Negative (Negative); Urine Blood Negative (Negative); Urine Color Yellow; Urine Glucose Negative (Negative); Urine Ketones Negative (Negative); Urine Nitrite Negative (Negative); Urine Protein 1+(30 mg/dL) (Negative); Urine Specific Gravity 1.016 (1.010-1.030); Urine Urobilinogen Negative (Negative)
[2020-01-06 12:03] LABS: Urine Bacteria Absent (Absent); Urine Red Blood Cell Trace(0-2/hpf) (Absent); Urine Squamous Epithelial Cell Present (Absent); Urine White Blood Cell 1+(6-10/hpf) (Absent)
[2020-01-06] MEDS: Insulin GLARGINE 100 un/ml 10 ml VIAL SUBCUT SCH (17:00)
[2020-01-07] MEDS: Heparin 5000 UNITS/ML 1 mL VIAL SUBCUT SCH ×3 (05:29→20:41)
[2020-01-07] MEDS: Aspirin EC 81 mg TAB.EC (enteric coated) PO SCH (08:37)
[2020-01-07] MEDS: Isosorbide Mononit ER 30mg TAB PO SCH (08:37)
[2020-01-07] MEDS: Insulin GLARGINE 100 un/ml 10 ml VIAL SUBCUT SCH (14:45)
[2020-01-08] MEDS: Heparin 5000 UNITS/ML 1 mL VIAL SUBCUT SCH (05:55)
[2020-01-08] MEDS: Aspirin EC 81 mg TAB.EC (enteric coated) PO SCH (08:05)
[2020-01-08] MEDS: Isosorbide Mononit ER 30mg TAB PO SCH (08:05)
[2020-01-08] MEDS ORDERED: Senna TAB 8.6 mg TAB PO PRN (08:30)
[2020-01-08] MEDS ORDERED: Magnesium Hydroxide LIQ 30 ML UDC PO PRN (08:30)
[2020-01-08 11:13] VITALS: BP 114/50
== END 2020-01-08 13:10 | DRG 282 ==
LOC: ED 17:24 → MEDTELE 21:13
PROVIDERS: ADMIT Internal Medicine; ATTEND Internal Medicine

== ENCOUNTER 2022-04-10 00:27 | Inpatient (IN) ==
[2022-04-10] MEDS ORDERED: Ondansetron 4 mg VIAL 2 MG/ML 2 ml VIAL IV ONE (00:37)
[2022-04-10] MEDS ORDERED: Morphine 2 MG/ML SYRINGE IV ONE (00:37)
[2022-04-10 01:15] LABS: ABS Basophils 0.1 10^3/ul (0-0.2); ABS Lymphocytes 0.9 10^3/ul (1.0-4.8); ABS Monocytes 0.6 10^3/ul (0-0.8); ABS Neutrophils 14.6 10^3/ul (1.5-7.7); Eosinophil % 0.2 %; Hematocrit 40 % (35-47); Hemoglobin 12.8 g/dL (12.0-16.0); Lymphocyte % 5.4 %; Mean Corpuscular HGB Conc 32 g/dL (31-36); Mean Corpuscular Hemoglobin 30 pg (27-31); Mean Corpuscular Volume 93 fL (80-97); Mean Platelet Volume 7.5 fL (7.4-10.4); Platelet Count 290 10^3/uL (150-450); Red Cell Distribution Width 14 % (10-15); White Blood Count 16.2 10^3/uL (3.5-10.8)
[2022-04-10 01:47] LABS: Albumin/Globulin Ratio 1.4 (1-3); C Reactive Protein 26.09 mg/L (<8.01); Calcium 9.4 mg/dL (8.6-10.3); Creatinine, Serum 0.94 mg/dL (0.51-0.95); Globulin 2.8 g/dL (2-4); Potassium 3.8 mmol/L (3.5-5.0); Total Bilirubin 0.4 mg/dL (0.2-1.0); Total Protein 6.8 g/dL (6.4-8.9); eGFR CKD-EPI 62.9 (>60)
[2022-04-10] MEDS ORDERED: Iodixanol (CONTRAST) 320 MG/ML 100 ML SDV IV ONE (01:56)
[2022-04-10] MEDS ORDERED: Piperacillin/Tazobac ADVAN 3.375 GM in NS 0.9% 100 ml BAG 100 ML IV ONE (03:23)
[2022-04-10] MEDS ORDERED: Ondansetron 4 mg VIAL 2 MG/ML 2 ml VIAL IV PRN (03:38)
[2022-04-10] MEDS ORDERED: cefTRIAXone 1 gm/50 mL D5W 1 GM/50 ML BAG IV SCH (03:45)
[2022-04-10] MEDS ORDERED: Morphine 2 MG/ML SYRINGE IV PRN (03:50)
[2022-04-10] MEDS ORDERED: Dextrose 50% Syringe 50 ml 25 GM/50 ML SYRINGE IV PUSH PRN (03:51)
[2022-04-10] MEDS ORDERED: Magnesium Hydroxide LIQ 30 ML UDC PO PRN (04:30)
[2022-04-10] MEDS: Enoxaparin 40 MG/0.4 ML SYR SUBCUT SCH (04:31)
[2022-04-10] MEDS ORDERED: Lactated Ringers 1000 ml BAG 1,000 ML IV SCH ×2 (05:00→09:28)
[2022-04-10] MEDS ORDERED: Metoprolol Tartrate 5 mg VIAL 5 ml VIAL (1 mg/ml) IV ONE (07:19)
[2022-04-10] MEDS ORDERED: Metoprolol Tartrate 5 mg VIAL 5 ml VIAL (1 mg/ml) ONE (07:34)
[2022-04-10] MEDS: Senna TAB 8.6 mg TAB PO SCH (10:13)
[2022-04-10] MEDS: Isosorbide Mononit ER 30mg TAB PO SCH (10:14)
[2022-04-10 11:34] LABS: High Sensitivity Troponin 1 Hr 111 pg/mL (<15)
[2022-04-10 12:44] LABS: High Sensitivity Troponin 3 Hr 432 pg/mL (<15)
[2022-04-10 15:49] LABS: HDL Cholesterol 57.3 mg/dL; Magnesium 1.6 mg/dL (1.9-2.7)
[2022-04-10] MEDS: Morphine 2 MG/ML SYRINGE IV PRN ×2 (15:49→19:24)
[2022-04-10 16:04] LABS: TSH Ultra Thyroid Stim Horm 2.65 mcIU/mL (0.34-5.60)
[2022-04-10 16:06] LABS: Free T4 1.13 ng/dL (0.61-1.12)
[2022-04-10] MEDS ORDERED: Magnesium Sulfate IV 2 GM in NS 0.9% 100 ml BAG 100 ML IVPB ONE (20:28)
[2022-04-10] MEDS ORDERED: Magnesium Sulfate 2 GM IV (Premix) IVPB ONE (21:00)
[2022-04-11] MEDS: Morphine 2 MG/ML SYRINGE IV PRN ×4 (00:48→19:37)
[2022-04-11] MEDS: cefTRIAXone 1 gm/50 mL D5W 1 GM/50 ML BAG IV SCH (04:46)
[2022-04-11] MEDS: Enoxaparin 40 MG/0.4 ML SYR SUBCUT SCH (05:46)
[2022-04-11 05:52] LABS: ABS Lymphocytes 0.7 10^3/ul (1.0-4.8); ABS Monocytes 0.6 10^3/ul (0-0.8); ABS Neutrophils 19.8 10^3/ul (1.5-7.7); Hematocrit 33 % (35-47); Hemoglobin 10.7 g/dL (12.0-16.0); Lymphocyte % 3.2 %; Mean Corpuscular HGB Conc 32 g/dL (31-36); Mean Corpuscular Hemoglobin 30 pg (27-31); Mean Corpuscular Volume 93 fL (80-97); Mean Platelet Volume 8.1 fL (7.4-10.4); Platelet Count 223 10^3/uL (150-450); Red Blood Count 3.58 10^6 /uL (3.70-4.87); Red Cell Distribution Width 14 % (10-15); White Blood Count 21.1 10^3/uL (3.5-10.8)
[2022-04-11 06:08] LABS: Albumin 3.1 g/dL (3.2-5.2); Albumin/Globulin Ratio 1.3 (1-3); Calcium 8.8 mg/dL (8.6-10.3); Creatinine, Serum 0.99 mg/dL (0.51-0.95); Globulin 2.4 g/dL (2-4); Potassium 3.9 mmol/L (3.5-5.0); Total Bilirubin 0.4 mg/dL (0.2-1.0); Total Protein 5.5 g/dL (6.4-8.9); eGFR CKD-EPI 59.1 (>60)
[2022-04-11] MEDS ORDERED: KCL 20 MEQ/100 ML IVPREMIX 20 MEQ/100 ML BAG IV ONE (07:48)
[2022-04-11 07:58] LABS: HDL Cholesterol 53.1 mg/dL; Magnesium 2.2 mg/dL (1.9-2.7)
[2022-04-11 08:13] LABS: TSH Ultra Thyroid Stim Horm 0.98 mcIU/mL (0.34-5.60)
[2022-04-11] MEDS ORDERED: Lactated Ringers 1000 ml BAG 1,000 ML IV ONE ×2 (08:14)
[2022-04-11] MEDS: Senna TAB 8.6 mg TAB PO SCH (10:56)
[2022-04-11] MEDS: Isosorbide Mononit ER 30mg TAB PO SCH (10:56)
[2022-04-11 11:14] LABS: ABS Monocytes 0.7 10^3/ul (0-0.8); ABS Neutrophils 19.6 10^3/ul (1.5-7.7); Hematocrit 31 % (35-47); Hemoglobin 10.2 g/dL (12.0-16.0); Lymphocyte % 4.5 %; Mean Corpuscular HGB Conc 33 g/dL (31-36); Mean Corpuscular Hemoglobin 30 pg (27-31); Mean Corpuscular Volume 92 fL (80-97); Mean Platelet Volume 7.8 fL (7.4-10.4); Platelet Count 236 10^3/uL (150-450); Red Cell Distribution Width 14 % (10-15); White Blood Count 21.3 10^3/uL (3.5-10.8)
[2022-04-11 11:49] LABS: Creatinine, Serum 1.27 mg/dL (0.51-0.95); eGFR CKD-EPI 43.8 (>60)
[2022-04-11] MEDS: Heparin DRIP 25,000 UNITS BAG 25,000 UNITS/500 ML BAG IV SCH (13:36)
[2022-04-11] MEDS ORDERED: Enoxaparin 60 MG/0.6 ML SYR SUBCUT SCH (18:00)
[2022-04-12] MEDS: Morphine 2 MG/ML SYRINGE IV PRN (01:51)
[2022-04-12] MEDS: cefTRIAXone 1 gm/50 mL D5W 1 GM/50 ML BAG IV SCH (03:36)
[2022-04-12 08:12] LABS: ABS Eosinophils 0.1 10^3/ul (0-0.6); ABS Lymphocytes 0.9 10^3/ul (1.0-4.8); ABS Monocytes 0.6 10^3/ul (0-0.8); ABS Neutrophils 15.3 10^3/ul (1.5-7.7); Eosinophil % 0.4 %; Hematocrit 32 % (35-47); Hemoglobin 10.1 g/dL (12.0-16.0); Lymphocyte % 5.2 %; Mean Corpuscular HGB Conc 32 g/dL (31-36); Mean Corpuscular Hemoglobin 30 pg (27-31); Mean Corpuscular Volume 93 fL (80-97); Mean Platelet Volume 7.7 fL (7.4-10.4); Platelet Count 231 10^3/uL (150-450); Red Blood Count 3.37 10^6 /uL (3.70-4.87); Red Cell Distribution Width 14 % (10-15); White Blood Count 16.9 10^3/uL (3.5-10.8)
[2022-04-12 08:26] LABS: INR 1.11 (0.88-1.18)
[2022-04-12] MEDS ORDERED: LACTATED RINGERS 1000 ML BAG IV ONE (08:30)
[2022-04-12 09:46] LABS: Albumin 2.8 g/dL (3.2-5.2); Calcium 8.4 mg/dL (8.6-10.3); Magnesium 1.9 mg/dL (1.9-2.7); Potassium 3.9 mmol/L (3.5-5.0); Total Bilirubin 0.3 mg/dL (0.2-1.0)
[2022-04-12 09:52] LABS: Albumin/Globulin Ratio 1.2 (1-3); Creatinine, Serum 1.06 mg/dL (0.51-0.95); Globulin 2.4 g/dL (2-4); Total Protein 5.2 g/dL (6.4-8.9); eGFR CKD-EPI 54.4 (>60)
[2022-04-12] MEDS: Senna TAB 8.6 mg TAB PO SCH (10:16)
[2022-04-12] MEDS: Isosorbide Mononit ER 30mg TAB PO SCH (10:18)
[2022-04-12] MEDS: Acetaminophen IV 1 GM/100ML 1,000 MG/100 ML BAG IV PRN ×2 (10:56→19:37)
[2022-04-12] MEDS ORDERED: Potassium Chlor 10 meq TAB PO ONE (15:25)
[2022-04-12] MEDS: Heparin DRIP 25,000 UNITS BAG 25,000 UNITS/500 ML BAG IV SCH (20:45)
[2022-04-13] MEDS: cefTRIAXone 1 gm/50 mL D5W 1 GM/50 ML BAG IV SCH (03:55)
[2022-04-13 08:45] LABS: Creatinine, Serum 0.82 mg/dL (0.51-0.95); eGFR CKD-EPI 74.1 (>60)
[2022-04-13] MEDS: Isosorbide Mononit ER 30mg TAB PO SCH (08:49)
[2022-04-13] MEDS: Senna TAB 8.6 mg TAB PO SCH (08:49)
[2022-04-13 11:45] LABS: ABS Eosinophils 0.2 10^3/ul (0-0.6); ABS Lymphocytes 0.7 10^3/ul (1.0-4.8); ABS Monocytes 0.6 10^3/ul (0-0.8); ABS Neutrophils 13.2 10^3/ul (1.5-7.7); Eosinophil % 1.2 %; Hematocrit 27 % (35-47); Hemoglobin 8.8 g/dL (12.0-16.0); Lymphocyte % 4.7 %; Mean Corpuscular HGB Conc 32 g/dL (31-36); Mean Corpuscular Hemoglobin 30 pg (27-31); Mean Corpuscular Volume 93 fL (80-97); Mean Platelet Volume 8.6 fL (7.4-10.4); Platelet Count 238 10^3/uL (150-450); Red Blood Count 2.92 10^6 /uL (3.70-4.87); Red Cell Distribution Width 14 % (10-15); White Blood Count 14.7 10^3/uL (3.5-10.8)
[2022-04-13] MEDS ORDERED: Morphine 2 MG/ML SYRINGE IV PRN (11:59)
[2022-04-13 17:16] LABS: Hematocrit 30 % (35-47); Hemoglobin 9.5 g/dL (12.0-16.0); Mean Corpuscular HGB Conc 32 g/dL (31-36); Mean Corpuscular Hemoglobin 29 pg (27-31); Mean Corpuscular Volume 92 fL (80-97); Mean Platelet Volume 7.6 fL (7.4-10.4); Platelet Count 270 10^3/uL (150-450); Red Blood Count 3.26 10^6 /uL (3.70-4.87); Red Cell Distribution Width 14 % (10-15); White Blood Count 16.3 10^3/uL (3.5-10.8)
[2022-04-14] MEDS: Heparin DRIP 25,000 UNITS BAG 25,000 UNITS/500 ML BAG IV SCH (03:23)
[2022-04-14] MEDS: cefTRIAXone 1 gm/50 mL D5W 1 GM/50 ML BAG IV SCH (04:27)
[2022-04-14 06:41] LABS: Hematocrit 27 % (35-47); Mean Corpuscular HGB Conc 33 g/dL (31-36); Mean Corpuscular Hemoglobin 31 pg (27-31); Mean Corpuscular Volume 93 fL (80-97); Mean Platelet Volume 7.6 fL (7.4-10.4); Platelet Count 256 10^3/uL (150-450); Red Blood Count 2.94 10^6 /uL (3.70-4.87); Red Cell Distribution Width 14 % (10-15); White Blood Count 13.1 10^3/uL (3.5-10.8)
[2022-04-14 07:33] LABS: Anion Gap 6 mmol/L (2-11); CO2 Carbon Dioxide 27 mmol/L (22-32); Calcium 7.7 mg/dL (8.6-10.3); Chloride 106 mmol/L (101-111); Potassium 3.6 mmol/L (3.5-5.0); Sodium 139 mmol/L (135-145)
[2022-04-14 07:37] LABS: Blood Urea Nitrogen 22 mg/dL (6-24); Creatinine, Serum 0.76 mg/dL (0.51-0.95); Glucose 116 mg/dL (70-100); eGFR CKD-EPI 81.2 (>60)
[2022-04-14] MEDS: Senna TAB 8.6 mg TAB PO SCH (08:54)
[2022-04-14] MEDS: Isosorbide Mononit ER 30mg TAB PO SCH (08:55)
[2022-04-14] MEDS: Acetaminophen IV 1 GM/100ML 1,000 MG/100 ML BAG IV PRN ×2 (09:02→20:16)
[2022-04-14] MEDS ORDERED: Iodixanol (CONTRAST) 320 MG/ML 100 ML SDV IV ONE (13:53)
[2022-04-14] MEDS ORDERED: Magnesium Sulfate 2 gm BAG 2 GM/50 ML BAG IVPB ONE (16:34)
[2022-04-14] MEDS ORDERED: Potassium Chlor 20 meq TAB.ER PO ONE (16:34)
[2022-04-15] MEDS: cefTRIAXone 1 gm/50 mL D5W 1 GM/50 ML BAG IV SCH (04:41)
[2022-04-15 06:35] LABS: Hematocrit 29 % (35-47); Hemoglobin 9.2 g/dL (12.0-16.0); Mean Corpuscular HGB Conc 32 g/dL (31-36); Mean Corpuscular Hemoglobin 30 pg (27-31); Mean Corpuscular Volume 92 fL (80-97); Mean Platelet Volume 7.2 fL (7.4-10.4); Platelet Count 284 10^3/uL (150-450); Red Blood Count 3.08 10^6 /uL (3.70-4.87); Red Cell Distribution Width 14 % (10-15); White Blood Count 12.9 10^3/uL (3.5-10.8)
[2022-04-15 07:05] LABS: Calcium 7.9 mg/dL (8.6-10.3); Magnesium 2.2 mg/dL (1.9-2.7); Potassium 4.3 mmol/L (3.5-5.0)
[2022-04-15 07:10] LABS: Creatinine, Serum 0.75 mg/dL (0.51-0.95); eGFR CKD-EPI 82.5 (>60)
[2022-04-15] MEDS: Acetaminophen IV 1 GM/100ML 1,000 MG/100 ML BAG IV PRN ×3 (07:56→22:31)
[2022-04-15] MEDS: Heparin DRIP 25,000 UNITS BAG 25,000 UNITS/500 ML BAG IV SCH (10:08)
[2022-04-15] MEDS: Senna TAB 8.6 mg TAB PO SCH (10:15)
[2022-04-15] MEDS: Isosorbide Mononit ER 30mg TAB PO SCH (10:15)
[2022-04-15] MEDS ORDERED: Furosemide 20 mg/2 ml IV VIAL IV ONE (17:16)
[2022-04-15] MEDS ORDERED: Senna TAB 8.6 mg TAB PO PRN (17:16)
[2022-04-15] MEDS: Enoxaparin 60 MG/0.6 ML SYR SUBCUT SCH (17:52)
[2022-04-16] MEDS: cefTRIAXone 1 gm/50 mL D5W 1 GM/50 ML BAG IV SCH (03:12)
[2022-04-16] MEDS: Enoxaparin 60 MG/0.6 ML SYR SUBCUT SCH ×2 (05:20→17:41)
[2022-04-16 07:38] LABS: Hematocrit 35 % (35-47); Hemoglobin 11.4 g/dL (12.0-16.0); Mean Corpuscular HGB Conc 33 g/dL (31-36); Mean Corpuscular Hemoglobin 31 pg (27-31); Mean Corpuscular Volume 93 fL (80-97); Mean Platelet Volume 7.3 fL (7.4-10.4); Platelet Count 327 10^3/uL (150-450); Red Blood Count 3.73 10^6 /uL (3.70-4.87); Red Cell Distribution Width 15 % (10-15); White Blood Count 14.8 10^3/uL (3.5-10.8)
[2022-04-16 07:57] LABS: Calcium 8.4 mg/dL (8.6-10.3); Creatinine, Serum 0.66 mg/dL (0.51-0.95); Magnesium 1.6 mg/dL (1.9-2.7); Potassium 4.3 mmol/L (3.5-5.0); eGFR CKD-EPI 90.9 (>60)
[2022-04-16] MEDS: Acetaminophen IV 1 GM/100ML 1,000 MG/100 ML BAG IV PRN ×2 (08:29→17:41)
[2022-04-16] MEDS: Isosorbide Mononit ER 30mg TAB PO SCH (11:53)
[2022-04-16] MEDS ORDERED: Magnesium Sulfate 2 gm BAG 2 GM/50 ML BAG IVPB ONE (17:04)
[2022-04-16] MEDS ORDERED: Morphine 2 MG/ML SYRINGE IV PRN (17:38)
[2022-04-17] MEDS: cefTRIAXone 1 gm/50 mL D5W 1 GM/50 ML BAG IV SCH (04:19)
[2022-04-17] MEDS: Enoxaparin 60 MG/0.6 ML SYR SUBCUT SCH ×2 (05:31→17:16)
[2022-04-17 06:53] LABS: Hematocrit 32 % (35-47); Hemoglobin 10.2 g/dL (12.0-16.0); Mean Corpuscular HGB Conc 32 g/dL (31-36); Mean Corpuscular Hemoglobin 30 pg (27-31); Mean Corpuscular Volume 93 fL (80-97); Mean Platelet Volume 6.9 fL (7.4-10.4); Platelet Count 348 10^3/uL (150-450); Red Blood Count 3.43 10^6 /uL (3.70-4.87); Red Cell Distribution Width 15 % (10-15)
[2022-04-17 07:21] LABS: Calcium 8.3 mg/dL (8.6-10.3); Creatinine, Serum 0.69 mg/dL (0.51-0.95); Magnesium 2.3 mg/dL (1.9-2.7); Potassium 4.1 mmol/L (3.5-5.0); eGFR CKD-EPI 89.9 (>60)
[2022-04-17] MEDS: Isosorbide Mononit ER 30mg TAB PO SCH (09:46)
[2022-04-17] MEDS: Acetaminophen IV 1 GM/100ML 1,000 MG/100 ML BAG IV PRN (20:51)
[2022-04-18] MEDS: cefTRIAXone 1 gm/50 mL D5W 1 GM/50 ML BAG IV SCH (04:07)
[2022-04-18] MEDS: Enoxaparin 60 MG/0.6 ML SYR SUBCUT SCH ×2 (05:45→18:11)
[2022-04-18 06:56] LABS: Hematocrit 28 % (35-47); Mean Corpuscular HGB Conc 32 g/dL (31-36); Mean Corpuscular Hemoglobin 30 pg (27-31); Mean Corpuscular Volume 93 fL (80-97); Mean Platelet Volume 6.8 fL (7.4-10.4); Platelet Count 335 10^3/uL (150-450); Red Cell Distribution Width 15 % (10-15); White Blood Count 11.2 10^3/uL (3.5-10.8)
[2022-04-18 07:20] LABS: Creatinine, Serum 0.71 mg/dL (0.51-0.95); Magnesium 1.8 mg/dL (1.9-2.7); Potassium 3.8 mmol/L (3.5-5.0); eGFR CKD-EPI 88.1 (>60)
[2022-04-18] MEDS: Isosorbide Mononit ER 30mg TAB PO SCH (09:13)
[2022-04-18] MEDS ORDERED: Magnesium Sulfate IV 1GM/100ML 1 GM/100 ML BAG IV ONE (13:08)
[2022-04-18] MEDS: Acetaminophen IV 1 GM/100ML 1,000 MG/100 ML BAG IV PRN (15:53)
[2022-04-19] MEDS: Acetaminophen IV 1 GM/100ML 1,000 MG/100 ML BAG IV PRN (01:14)
[2022-04-19] MEDS: cefTRIAXone 1 gm/50 mL D5W 1 GM/50 ML BAG IV SCH (03:46)
[2022-04-19] MEDS: Enoxaparin 60 MG/0.6 ML SYR SUBCUT SCH (04:46)
[2022-04-19 06:49] LABS: Hematocrit 29 % (35-47); Hemoglobin 9.5 g/dL (12.0-16.0); Mean Corpuscular HGB Conc 33 g/dL (31-36); Mean Corpuscular Hemoglobin 30 pg (27-31); Mean Corpuscular Volume 92 fL (80-97); Mean Platelet Volume 6.5 fL (7.4-10.4); Platelet Count 316 10^3/uL (150-450); Red Blood Count 3.14 10^6 /uL (3.70-4.87); Red Cell Distribution Width 15 % (10-15); White Blood Count 10.4 10^3/uL (3.5-10.8)
[2022-04-19 07:24] LABS: Calcium 7.5 mg/dL (8.6-10.3); Creatinine, Serum 0.68 mg/dL (0.51-0.95); Potassium 3.4 mmol/L (3.5-5.0); eGFR CKD-EPI 90.2 (>60)
[2022-04-19] MEDS: Isosorbide Mononit ER 30mg TAB PO SCH (09:25)
[2022-04-19 12:01] VITALS: BP 165/57
[2022-04-19 12:23] LABS: Rapid COVID-19 Molecular Undetected (Undetected)
== END 2022-04-19 13:35 | DRG 871 ==
LOC: ED 00:27 → EDHOLD 03:38 → SUATTDRO 03:38 → SSU 09:25 → MEDTELE 04-13 00:08
PROVIDERS: ADMIT Student in an Organized Health Care Education/Training Program; ATTEND Internal Medicine

== ENCOUNTER 2023-08-22 09:20 | Inpatient (IN) ==
[2023-08-22] MEDS ORDERED: Midazolam 5 mg/5 ml VIAL 1 mg/ml 5 ml VIAL (5 mg) ONE (09:35)
[2023-08-22] MEDS ORDERED: fentaNYL 100 mcg/2 ml 50 MCG/ML VIAL ONE (09:35)
[2023-08-22 09:52] LABS: ABS Basophils 0.1 10^3/uL (0.0-0.1); ABS Eosinophils 0.1 10^3/uL (0.0-0.5); ABS Lymphocytes 0.9 10^3/uL (1.0-4.8); ABS Monocytes 1.1 10^3/uL (0.0-0.9); Eosinophil % 0.9 %; Hematocrit 33.1 % (35-45); Lymphocyte % 6.2 %; Mean Corpuscular Hemoglobin 29.9 pg (27-33); Mean Corpuscular Hgb Conc 33.4 g/dL (31-36); Mean Corpuscular Volume 89.5 fL (80-97); Mean Platelet Volume 8.3 fL (7.5-11.2); Platelet Count 243 10^3/uL (150-450); Red Blood Count 3.69 10^6/uL (3.63-4.92); Red Cell Distribution Width 16.9 % (12-17); White Blood Count 14.2 10^3/uL (3.8-11.8)
[2023-08-22 10:00] LABS: INR 1.08 (0.83-1.13)
[2023-08-22 10:17] LABS: High Sens Troponin Baseline 4211 pg/mL (<15)
[2023-08-22] MEDS: nitroGLYCERIN DRIP 25,000 MCG/250 ML BTL IV SCH (10:18)
[2023-08-22 10:38] LABS: Anion Gap 9 mmol/L (2-16); Blood Urea Nitrogen 34 mg/dL (6-24); CO2 Carbon Dioxide 28 mmol/L (22-32); Chloride 99 mmol/L (101-111); Creatinine, Serum 0.83 mg/dL (0.51-0.95); Glucose 198 mg/dL (70-100); Sodium 136 mmol/L (135-145)
[2023-08-22 10:39] LABS: ALT 21 U/L (7-52); Albumin 3.6 g/dL (3.2-5.2); Albumin/Globulin Ratio 1.2 (1-3); Alkaline Phosphatase 68 U/L (35-149); Calcium 8.8 mg/dL (8.6-10.3); Total Bilirubin 0.5 mg/dL (0.2-1.0); Total Protein 6.6 g/dL (6.4-8.9); eGFR CKD-EPI 72.6 (>60)
[2023-08-22] MEDS: Iodixanol (CONTRAST) 320 MG/ML 100 ML SDV IV ONE (11:55)
[2023-08-22 12:14] LABS: Potassium Redraw 4.6 mmol/L (3.5-5.0)
[2023-08-22 12:15] LABS: Magnesium 1.8 mg/dL (1.9-2.7)
[2023-08-22] MEDS: Furosemide 40 mg/4 ml IV VIAL IV SLOW PU ONE (12:17)
[2023-08-22] MEDS ORDERED: Polyethylene Glycol 3350 17 GM PACKET PO PRN (13:39)
[2023-08-22] MEDS: Heparin DRIP 25,000 UNITS BAG 25,000 UNITS/250 ML BAG IV SCH (13:58)
[2023-08-22 14:03] LABS: ABS Basophils 0.1 10^3/uL (0.0-0.1); ABS Lymphocytes 1.1 10^3/uL (1.0-4.8); ABS Monocytes 1.1 10^3/uL (0.0-0.9); ABS Neutrophils 11.2 10^3/uL (1.5-7.6); Eosinophil % 0.3 %; Hemoglobin 10.1 g/dL (11.5-14.3); Lymphocyte % 7.9 %; Mean Corpuscular Hgb Conc 32.5 g/dL (31-36); Mean Corpuscular Volume 89.3 fL (80-97); Mean Platelet Volume 8.1 fL (7.5-11.2); Platelet Count 248 10^3/uL (150-450); Red Blood Count 3.47 10^6/uL (3.63-4.92); Red Cell Distribution Width 16.7 % (12-17); White Blood Count 13.5 10^3/uL (3.8-11.8)
[2023-08-22 14:12] LABS: Activated Partial Thrombo Time 27.1 seconds (26.0-38.0); INR 1.11 (0.83-1.13)
[2023-08-22 14:51] LABS: Calcium 8.3 mg/dL (8.6-10.3); Creatinine, Serum 0.82 mg/dL (0.51-0.95); Potassium 4.3 mmol/L (3.5-5.0); eGFR CKD-EPI 73.6 (>60)
[2023-08-22 15:40] LABS: Cholesterol 204 mg/dL; HDL Cholesterol 65.7 mg/dL; LDL Cholesterol 102 mg/dL; Triglycerides 182 mg/dL
[2023-08-22 15:41] LABS: .Transferrin 242 mg/dL (203-362); Total Iron Binding Capacity 339 mcg/dL (250-450)
[2023-08-22 15:50] LABS: Ferritin 63.1 ng/mL (11-307)
[2023-08-22 16:19] LABS: % Iron Saturation 4 % (15-55); Unsaturated Iron Binding < 324 ug/dL
[2023-08-22 16:20] LABS: Iron 12 ug/dL (50-212)
[2023-08-22 16:54] LABS: ABS Basophils 0.1 10^3/uL (0.0-0.1); ABS Eosinophils 0.1 10^3/uL (0.0-0.5); ABS Lymphocytes 1.1 10^3/uL (1.0-4.8); ABS Monocytes 1.2 10^3/uL (0.0-0.9); ABS Neutrophils 10.7 10^3/uL (1.5-7.6); ABS Nucleated RBC 0.01 10^3/ul; Eosinophil % 0.5 %; Hematocrit 28.3 % (35-45); Hemoglobin 9.3 g/dL (11.5-14.3); Lymphocyte % 8.6 %; Mean Corpuscular Hemoglobin 29.2 pg (27-33); Mean Corpuscular Hgb Conc 32.7 g/dL (31-36); Mean Corpuscular Volume 89.2 fL (80-97); Mean Platelet Volume 8.7 fL (7.5-11.2); Nucleated Red Blood Cells % 0.1 %/100WBC (0.0-0.8); Platelet Count 234 10^3/uL (150-450); Red Blood Count 3.17 10^6/uL (3.63-4.92); Red Cell Distribution Width 16.7 % (12-17); White Blood Count 13.2 10^3/uL (3.8-11.8)
[2023-08-22 17:17] LABS: High Sensitivity Troponin 1 Hr 6784 pg/mL (<15)
[2023-08-22] MEDS: Heparin 5000 UNITS/ML 1 mL VIAL IV PRN (20:29)
[2023-08-23 04:20] LABS: ABS Basophils 0.1 10^3/uL (0.0-0.1); ABS Eosinophils 0.2 10^3/uL (0.0-0.5); ABS Lymphocytes 1.8 10^3/uL (1.0-4.8); ABS Monocytes 1.2 10^3/uL (0.0-0.9); ABS Neutrophils 10.8 10^3/uL (1.5-7.6); Eosinophil % 1.4 %; Hematocrit 27.6 % (35-45); Hemoglobin 9.3 g/dL (11.5-14.3); Lymphocyte % 12.8 %; Mean Corpuscular Hemoglobin 29.9 pg (27-33); Mean Corpuscular Hgb Conc 33.6 g/dL (31-36); Mean Corpuscular Volume 88.8 fL (80-97); Mean Platelet Volume 8.1 fL (7.5-11.2); Platelet Count 236 10^3/uL (150-450); Red Cell Distribution Width 17.2 % (12-17); White Blood Count 14.1 10^3/uL (3.8-11.8)
[2023-08-23] MEDS: Metoprolol Tartrate 5 mg VIAL 5 ml VIAL (1 mg/ml) IV SCH (05:46)
[2023-08-23 07:00] LABS: Albumin 3.3 g/dL (3.2-5.2); Albumin/Globulin Ratio 1.2 (1-3); Calcium 8.3 mg/dL (8.6-10.3); Creatinine, Serum 1.02 mg/dL (0.51-0.95); Globulin 2.8 g/dL (2-4); Magnesium 1.7 mg/dL (1.9-2.7); Potassium 4.3 mmol/L (3.5-5.0); Total Bilirubin 0.5 mg/dL (0.2-1.0); Total Protein 6.1 g/dL (6.4-8.9); eGFR CKD-EPI 56.7 (>60)
[2023-08-23] MEDS: Sulfur Hexaflouride MICROSPHR 25 MG VIAL IV ONE (07:13)
[2023-08-23] MEDS: Magnesium Sulfate IV 1GM/100ML 1 GM/100 ML BAG IV ONE (08:04)
[2023-08-23] MEDS ORDERED: VERAPAMIL 2.5 MG/ML 2 ML VIAL ** 5 mg/2 ml ONE (08:11)
[2023-08-23] MEDS ORDERED: Heparin 1,000 UNIT/ML 10 ml (10,000 UNITS) CATHLAB/DIALYSIS ONE (08:11)
[2023-08-23] MEDS ORDERED: Iohexol 350 (CONTRAST) 200 ML MDV IV ONE (08:12)
[2023-08-23] MEDS ORDERED: nitroGLYCERIN DRIP 25,000 MCG/250 ML BTL ONE (08:12)
[2023-08-23] MEDS ORDERED: Heparin 2 UNITS/ML 1000 mls 2,000 ML IV ONE (08:12)
[2023-08-23] MEDS ORDERED: Lidocaine 1% MPF 5 ML VIAL ONE (08:12)
[2023-08-23] MEDS ORDERED: Midazolam 5 mg/5 ml VIAL 1 mg/ml 5 ml VIAL (5 mg) ONE (08:19)
[2023-08-23] MEDS ORDERED: fentaNYL 100 mcg/2 ml 50 MCG/ML VIAL ONE (08:19)
[2023-08-23] MEDS: Carboxymethylcellulos 1% OPTH 1 AMP BOTH EYES SCH (08:22)
[2023-08-23] MEDS ORDERED: Isosorbide Mononit ER 30mg TAB PO SCH (09:00)
[2023-08-23] MEDS: Magnesium Sulfate 2 gm BAG 2 GM/50 ML BAG IVPB ONE (12:01)
[2023-08-23] MEDS: NS 0.9% 1000 ml BAG 1,000 ML IV SCH (12:06)
[2023-08-23] MEDS: Furosemide 20 mg/2 ml IV VIAL IV ONE (14:17)
[2023-08-24 05:34] LABS: ABS Basophils 0.1 10^3/uL (0.0-0.1); ABS Eosinophils 0.3 10^3/uL (0.0-0.5); ABS Lymphocytes 1.4 10^3/uL (1.0-4.8); ABS Monocytes 1.2 10^3/uL (0.0-0.9); Eosinophil % 2.4 %; Hematocrit 27.9 % (35-45); Hemoglobin 9.4 g/dL (11.5-14.3); Lymphocyte % 11.4 %; Mean Corpuscular Hemoglobin 29.7 pg (27-33); Mean Corpuscular Hgb Conc 33.5 g/dL (31-36); Mean Corpuscular Volume 88.7 fL (80-97); Mean Platelet Volume 8.1 fL (7.5-11.2); Platelet Count 247 10^3/uL (150-450); Red Blood Count 3.15 10^6/uL (3.63-4.92); Red Cell Distribution Width 16.9 % (12-17); White Blood Count 11.9 10^3/uL (3.8-11.8)
[2023-08-24 05:57] LABS: Albumin 3.3 g/dL (3.2-5.2); Albumin/Globulin Ratio 1.1 (1-3); Calcium 8.5 mg/dL (8.6-10.3); Creatinine, Serum 0.92 mg/dL (0.51-0.95); Globulin 2.9 g/dL (2-4); Magnesium 2.4 mg/dL (1.9-2.7); Potassium 4.1 mmol/L (3.5-5.0); Total Bilirubin 0.5 mg/dL (0.2-1.0); Total Protein 6.2 g/dL (6.4-8.9); eGFR CKD-EPI 64.1 (>60)
[2023-08-24] MEDS: Isosorbide Mononit ER 30mg TAB PO SCH (08:24)
[2023-08-24] MEDS: Polyethylene Glycol 3350 17 GM PACKET PO SCH (09:57)
[2023-08-24] MEDS ORDERED: Iron Sucrose 20 MG/ML 5 ML VIAL IVPB ONE (13:30)
[2023-08-24] MEDS: Iron Sucrose 200 MG in NS 0.9% 100 ml IVPB ONE (14:46)
[2023-08-24] MEDS ORDERED: Senna TAB 8.6 mg TAB PO PRN (14:54)
[2023-08-24] MEDS: Senna TAB 8.6 mg TAB PO PRN (15:29)
[2023-08-24] MEDS: Magnesium Hydroxide LIQ 30 ML UDC PO PRN (15:29)
[2023-08-24] MEDS: Nitroglycerin 0.6 mg TAB SL ONE (15:49)
[2023-08-24] MEDS: CMC:Ranolazine 500 mg TAB ER (NF) PO ONE (16:02)
[2023-08-24 17:44] LABS: High Sensitivity Troponin 1 Hr 4386 pg/mL (<15)
[2023-08-25 05:42] LABS: ABS Basophils 0.1 10^3/uL (0.0-0.1); ABS Eosinophils 0.3 10^3/uL (0.0-0.5); ABS Lymphocytes 1.4 10^3/uL (1.0-4.8); ABS Neutrophils 8.8 10^3/uL (1.5-7.6); ABS Nucleated RBC 0.01 10^3/ul; Eosinophil % 2.9 %; Hematocrit 27.9 % (35-45); Mean Corpuscular Hemoglobin 28.8 pg (27-33); Mean Corpuscular Hgb Conc 32.3 g/dL (31-36); Mean Corpuscular Volume 89.1 fL (80-97); Mean Platelet Volume 7.9 fL (7.5-11.2); Nucleated Red Blood Cells % 0.1 %/100WBC (0.0-0.8); Platelet Count 276 10^3/uL (150-450); Red Blood Count 3.13 10^6/uL (3.63-4.92); Red Cell Distribution Width 16.9 % (12-17); White Blood Count 11.7 10^3/uL (3.8-11.8)
[2023-08-25 07:07] LABS: Albumin 3.2 g/dL (3.2-5.2); Albumin/Globulin Ratio 1.2 (1-3); Calcium 8.6 mg/dL (8.6-10.3); Creatinine, Serum 1.03 mg/dL (0.51-0.95); Globulin 2.6 g/dL (2-4); Magnesium 2.5 mg/dL (1.9-2.7); Potassium 4.6 mmol/L (3.5-5.0); Total Bilirubin 0.5 mg/dL (0.2-1.0); Total Protein 5.8 g/dL (6.4-8.9)
[2023-08-25] MEDS ORDERED: Aminophylline 25 MG/ML VIAL ONE (07:31)
[2023-08-25] MEDS ORDERED: Regadenoson 0.4 MG/5 ML SYRINGE ONE (07:31)
[2023-08-25] MEDS: Iron Sucrose 200 MG in NS 0.9% 100 ml BAG 100 ML IVPB SCH (18:28)
[2023-08-25] MEDS: Isosorbide Mononit ER 30mg TAB PO ONE (18:28)
[2023-08-26] MEDS: Isosorbide Mononit ER 30mg TAB PO SCH (08:18)
[2023-08-26] MEDS ORDERED: Isosorbide Mononit ER 60mg TAB PO SCH (09:00)
[2023-08-27] MEDS: Isosorbide Mononit ER 60mg TAB PO SCH (09:11)
[2023-08-28 08:58] LABS: Rapid COVID-19 Molecular Undetected (Undetected)
[2023-08-28 10:06] VITALS: BP 141/61
== END 2023-08-28 11:12 | DRG 281 ==
LOC: ED 09:20 → EDHOLD 13:39 → SUATTDRO 13:39 → ICU 14:12 → MEDTELE 14:55
PROVIDERS: ADMIT Surgery Surgical Critical Care; ATTEND Internal Medicine